=== PATIENT | female | born 1950 | race Caucasian/White ===

== ENCOUNTER 2016-10-09 18:38 | Emergency (ER) | payer MEDICARE, MEDICAID ==
--- NOTE | 2016-10-09 19:06 | EDM.PDOC ---
ED HPI GENERAL MEDICAL PROBLEM - General Chief Complaint: Upper Extremity Injury/Pain Stated Complaint: FALL Time Seen by Provider: 10/09/16 18:38 Source of Information: Reports: Patient, EMS, EMS Notes Reviewed History Limitations: Reports: No Limitations - History of Present Illness INITIAL COMMENTS - FREE TEXT/NARRATIVE: 66 years old w f with H/O IDDM, H/O DVT on Coumadin, obesity, Chronic pain, got dizzy and fell in the kitchen on her left outstretched and the back of her head. Pt denied LOC. Pt came to the ED with left forearm pain, splinted and a "bump" at her mid post kristopher. Pt denied other acute medical issues. Onset: Today Onset Date: 10/09/16 Onset Time: 18:00 Duration: Minutes: Location: Reports: Lower Extremity, Left Quality: Reports: Ache, Dull, Pressure, Stabbing Severity: Moderate Improves with: Reports: Immobilization Worsens with: Reports: Movement Context: Reports: Trauma (fall on outstreched left arm.) Associated Symptoms: Reports: Other (got dizzy and fell) - Related Data Allergies Allergy/AdvReac Type Severity Reaction Status Date / Time codeine Allergy Cannot Verified 10/09/16 19:56 Remember duloxetine HCl Allergy Cannot Verified 10/09/16 19:56 [From Cymbalta] Remember hydrocodone Allergy Cannot Verified 10/09/16 19:56 Remember Home Meds: Home Meds Albuterol/Ipratropium [DuoNeb 3.0-0.5 MG/3 ML] 3 ml IH QID PRN 10/19/14 [History ] Aspirin [Halfprin] 81 mg PO DAILY 10/19/14 [History] Budesonide [Pulmicort] 0.5 mg IH BID 10/19/14 [History] Bumetanide [Bumex] 1.5 mg PO DAILY 10/19/14 [History] FLUoxetine [PROzac] 40 mg PO BID 10/19/14 [History] Gabapentin [Neurontin] 300 mg PO TID 10/19/14 [History] Insulin Lispro [Humalog Kwikpen U-100] 30 unit SQ ACBRK 10/19/14 [History] Insulin Lispro [Humalog Kwikpen U-100] 30 unit SQ ACLUNCH 10/19/14 [History] Insulin Lispro [Humalog Kwikpen U-100] 38 unit SQ ACDINNER 10/19/14 [History] Ipratropium/Albuterol Sulfate [Iprat-Albut 0.5-3(2.5) mg/3 ml] 3 ml IH Q4HR PRN 10/19/14 [History] Levothyroxine Sodium [Synthroid] 2 tab PO ACBREAKFAST 10/19/14 [History] Lisinopril 10 mg PO DAILY 10/19/14 [History] Magic Mouth Wash 5 ml PO QID 10/19/14 [History] Polyethylene Glycol 3350 [MiraLAX] 17 gm PO DAILY PRN 10/19/14 [History] Potassium Chloride [Klor-Con 10] 20 meq PO BID 10/19/14 [History] Rolaids 2 tab PO ASDIRECTED PRN 10/19/14 [History] Warfarin [Coumadin] 5 mg PO ASDIRECTED 10/19/14 [History] Warfarin [Coumadin] 7.5 mg PO ASDIRECTED 10/19/14 [History] buPROPion HCl [Wellbutrin Xl] 150 mg PO DAILY 10/19/14 [History] Acetaminophen [Tylenol Extra Strength] 1,000 mg PO Q8HR PRN 10/09/16 [History] Ferrous Sulfate 325 mg PO TID 10/09/16 [History] Insulin Glargine,Hum.Rec.Anlog [Touluiso Solostar] 94 units SQ DAILY 10/09/16 [ History] Magnesium Oxide 400 mg PO BID 10/09/16 [History] Metolazone 2.5 mg PO WEEKLY 10/09/16 [History] Pantoprazole 40 mg PO ACBREAKFAST 10/09/16 [History] Sennosides/Docusate Sodium [Senna-Docusate Sodium Tablet] 2 tab PO DAILY PRN [History] Vitamin B6-pyridOXINE 100 mg PO PCLUNCH 10/09/16 [History] fentaNYL [Duragesic] 25 mcg TRDERM ASDIRECTED 10/09/16 [History] traZODone 50 mg PO DAILY 10/09/16 [History] Past Medical History Other Endocrine/Metabolic History: GRAVES DISEASE Social & Family History - Tobacco Use Smoking Status *Q: Former Smoker Years of Tobacco use: 42 Used Tobacco, but Quit: Yes - Alcohol Use Days Per Week of Alcohol Use: 0 - Recreational Drug Use Recreational Drug Use: No Drug Use in Last 12 Months: No Review of Systems - Review of Systems Review Of Systems: See Below Constitutional: Reports: Weakness Eyes: Reports: No Symptoms Ears: Reports: No Symptoms Nose: Reports: No Symptoms Mouth/Throat: Reports: No Symptoms Respiratory: Reports: No Symptoms Cardiovascular: Reports: No Symptoms GI/Abdominal: Reports: No Symptoms Genitourinary: Reports: No Symptoms Musculoskeletal: Reports: Arm Pain Skin: Reports: No Symptoms Neurological: Reports: Dizziness Psychiatric: Reports: No Symptoms ED EXAM, GENERAL - Physical Exam Exam: See Below Exam Limited By: Physical Impairment General Appearance: Alert, WD/WN, Mild Distress, Obese (morbid) Eye Exam: Bilateral Eye: Normal Inspection Ears: Normal External Exam Ear Exam: Bilateral Ear: Auricle Normal Nose: Normal Inspection, Normal Mucosa Throat/Mouth: Normal Inspection Head: Other (post kristopher swelling and tenderness) Neck: Normal Inspection, Tender Midline Respiratory/Chest: No Respiratory Distress, Lungs Clear Cardiovascular: Normal Peripheral Pulses Peripheral Pulses: 1+: Femoral (L), Femoral (R) GI/Abdominal: Normal Bowel Sounds, Soft, Non-Tender (Female) Exam: Deferred Rectal (Female) Exam: Deferred Back Exam: Normal Inspection, Full Range of Motion Extremities: Normal Inspection, Normal Range of Motion, Normal Capillary Refill Neurological: Alert, Oriented, CN II-XII Intact Psychiatric: Normal Affect, Normal Mood Skin Exam: Erythema (norman lower extremities) Lymphatic: No Adenopathy EKG INTERPRETATION EKG Date: 10/09/16 Time: 20:55 Rhythm: NSR Rate (beats/min): 64 [place]: normal P-wave: present QRS: normal ST-T: normal QT: normal Comparison: NA - no prior EKG Course - Vital Signs Text/Narrative:: 66 years old w f with H/O IDDM, H/O DVT on Coumadin, obesity, Chronic pain, got dizzy and fell in the kitchen on her left outstretched and the back of her head. Pt denied LOC. Pt came to the ED with left forearm pain, splinted and a "bump" at her mid post kristopher. Pt denied other acute medical issues. PE: Deformed left wrist/forearm, SQ hematoma mid post. kristopher. Cellulitis both lower extremities. Imaging: Left diostal radius fax, comminuted, closed CT Head NAD CT Cervical spine: NAD Labs: INR 2.4, Impression: Left diostal radius fax, comminuted, closed, SQ hematoma mid post kristopher. Fall Consultation: Dr. Murguia, Ortho: Splint, will see pt at 9.30 am, NPO after MN Plan; D/C with instructions Last Recorded V/S: Last Vital Signs Temp 36.8 C 10/09/16 18:50 Pulse 64 10/09/16 18:50 Resp 18 10/09/16 18:50 BP 129/70 10/09/16 18:50 Pulse Ox 100 10/09/16 18:50 - Orders/Labs/Meds Orders: Active Orders 24 hr Category Date Time Status EKG Documentation Completion [RC] ASDIRECTED Care 10/09/16 19:01 Active Cervical Spine wo Cont [CT] Stat Exams 10/09/16 20:31 Taken Head wo Cont [CT] Stat Exams 10/09/16 20:30 Taken CULTURE BLOOD [BC] Urgent Lab 10/09/16 19:30 Received CULTURE BLOOD [BC] Urgent Lab 10/09/16 19:30 Received Blood Culture x2 Reflex Set [OM.PC] Urgent Oth 10/09/16 18:56 Ordered EKG 12 Lead [EK] Routine Ther 10/09/16 18:59 Ordered Labs: Laboratory Tests 10/09/16 10/09/16 10/09/16 Range/Units 19:30 19:30 19:30 WBC 8.7 (4.5-12.0) X10-3/uL RBC 3.87 (3.23-5.20) x10(6)uL Hgb 11.6 (11.5-15.5) g/dL Hct 34.0 (30.0-51.3) % MCV 88.0 (80-96) fL MCH 29.9 (27.7-33.6) pg MCHC 34.0 (32.2-35.4) g/dL RDW 14.5 (11.5-15.5) % Plt Count 196 (125-369) X10(3)uL MPV 8.5 (7.4-10.4) fL Neut % (Auto) 72.7 (46-82) % Lymph % (Auto) 17.1 (13-37) % [place] % (Auto) 8.2 (4-12) % Eos % (Auto) 1 (1.0-5.0) % Baso % (Auto) 1 (0-2) % Neut # (Auto) 6.3 (1.6-8.3) # Lymph # (Auto) 1.5 (0.6-5.0) # [place] # (Auto) 0.7 (0.0-1.3) # Eos # (Auto) 0.1 (0.0-0.8) # Baso # (Auto) 0.1 (0.0-0.2) # PT 24.0 H (8.7-11.1) INR 2.34 H (0.89-1.13) Sodium 134 L (135-145) mmol/L Potassium 4.2 (3.5-5.3) mmol/L Chloride 100 (100-110) mmol/L Carbon Dioxide 25 (23-29) mmol/L BUN 48 H D (8-23) mg/dL Creatinine 1.4 H (0.6-1.3) mg/dL Est Cr Clr Drug Dosing TNP Estimated GFR (MDRD) 38 L (>60) BUN/Creatinine Ratio 34.3 H (9-20) Glucose 151 H D (80-116) mg/dL Hemoglobin A1c (4.0-6.0) % Lactic Acid (0.5-2.2) mmol/L Calcium 9.3 (8.6-10.2) mg/dL Creatine Kinase 58 L (60-160) IU/L Troponin I (0.02-0.06) NG/ML 10/09/16 10/09/16 10/09/16 Range/Units 19:30 19:30 19:30 WBC (4.5-12.0) X10-3/uL RBC (3.23-5.20) x10(6)uL Hgb (11.5-15.5) g/dL Hct (30.0-51.3) % MCV (80-96) fL MCH (27.7-33.6) pg MCHC (32.2-35.4) g/dL RDW (11.5-15.5) % Plt Count (125-369) X10(3)uL MPV (7.4-10.4) fL Neut % (Auto) (46-82) % Lymph % (Auto) (13-37) % [place] % (Auto) (4-12) % Eos % (Auto) (1.0-5.0) % Baso % (Auto) (0-2) % Neut # (Auto) (1.6-8.3) # Lymph # (Auto) (0.6-5.0) # [place] # (Auto) (0.0-1.3) # Eos # (Auto) (0.0-0.8) # Baso # (Auto) (0.0-0.2) # PT (8.7-11.1) INR (0.89-1.13) Sodium (135-145) mmol/L Potassium (3.5-5.3) mmol/L Chloride (100-110) mmol/L Carbon Dioxide (23-29) mmol/L BUN (8-23) mg/dL Creatinine (0.6-1.3) mg/dL Est Cr Clr Drug Dosing Estimated GFR (MDRD) (>60) BUN/Creatinine Ratio (9-20) Glucose (80-116) mg/dL Hemoglobin A1c 9.6 H (4.0-6.0) % Lactic Acid 1.8 (0.5-2.2) mmol/L Calcium (8.6-10.2) mg/dL Creatine Kinase (60-160) IU/L Troponin I < 0.01 L (0.02-0.06) NG/ML Departure - Departure Time of Disposition: 23:00 Disposition: Home, Self-Care 01 Condition: good Clinical Impression: Forearm fracture Qualifiers: Encounter type: initial encounter Fracture type: closed Laterality: left Qualified Code(s): S52.92XA - Unspecified fracture of left forearm, initial encounter for closed fracture Wrist fracture, left Qualifiers: Encounter type: initial encounter Fracture type: closed Qualified Code(s): S62.102A - Fracture of unspecified carpal bone, left wrist, initial encounter for closed fracture - Discharge Information Referrals: Lisa Rodriguez NP [Primary Care Provider] - Reno Murguia MD [Physician] - Forms: ED Department Discharge Additional Instructions: Rest, ICE and elevation. Nothing by mouty after midnight, please see Dr. Murguia at 9.30 am tomorrow morning. Pt come back to the ed earlier if your symtoms get acutely worse. Increase duragesic patch to 50-75mcg tonight to help with pain management. - My Orders Last 24 Hours: My Active Orders 10/09/16 18:56 Blood Culture x2 Reflex Set [OM.PC] Urgent 10/09/16 18:59 EKG 12 Lead [EK] Routine 10/09/16 19:01 EKG Documentation Completion [RC] ASDIRECTED 10/09/16 19:30 CULTURE BLOOD [BC] Urgent CULTURE BLOOD [BC] Urgent 10/09/16 20:30 Head wo Cont [CT] Stat 10/09/16 20:31 Cervical Spine wo Cont [CT] Stat - Assessment/Plan Last 24 Hours: My Active Orders 10/09/16 18:56 Blood Culture x2 Reflex Set [OM.PC] Urgent 10/09/16 18:59 EKG 12 Lead [EK] Routine 10/09/16 19:01 EKG Documentation Completion [RC] ASDIRECTED 10/09/16 19:30 CULTURE BLOOD [BC] Urgent CULTURE BLOOD [BC] Urgent 10/09/16 20:30 Head wo Cont [CT] Stat 10/09/16 20:31 Cervical Spine wo Cont [CT] Stat
[2016-10-09 20:19] VITALS: BP 129/70
--- NOTE | 2016-10-10 11:27 | CR ---
INDICATION: Fall. LEFT WRIST: Three views of the left wrist revealed a severely comminuted fracture of the distal radial metaphysis, which extends into the joint surface at least along the dorsal aspect of the radial joint surface. Posterior offset of the distal fracture fragment is noted of at least 1 cm with dorsal angulation of the radial joint surface that is moderately severe. An ulnar styloid fracture is also noted with medial offset of approximately 6 mm of the distal fracture fragment. There is also some relatively mild anterior angulation at the ulnar fracture site and distraction of the ulnar fracture fragments. IMPRESSION: Colles' fracture with fairly severe deformity and comminution. MTDD
--- NOTE | 2016-10-10 11:28 | CR ---
INDICATION: Fall. LEFT FOREARM: Frontal and lateral views of the left forearm revealed comminuted Colles' fracture of the radius and ulna with significant deformity. No other significant bone or joint abnormality was identified. MTDD
== END 2016-10-09 22:00 | disposition home or self-care (01) ==
LOC: FB.ED 18:38 → FB.SDS 10-10 09:28
DX: S52.532A Colles' fracture of left radius, initial encounter for closed fracture (principal); S52.612A Displaced fracture of left ulna styloid process, initial encounter for closed fracture; Z88.5 Allergy status to narcotic agent; Z88.8 Allergy status to other drugs, medicaments and biological substances; Z79.82 Long term (current) use of aspirin; Z79.899 Other long term (current) drug therapy; Z79.4 Long term (current) use of insulin; Z87.891 Personal history of nicotine dependence; Z79.01 Long term (current) use of anticoagulants; W19.XXXA Unspecified fall, initial encounter; Y92.090 Kitchen in other non-institutional residence as the place of occurrence of the external cause
CPT/HCPCS: 29105; 36415; 70450; 72125; 73090-LT; 73110-LT; 80048; 82550; 83036; 83605; 84484; 85025; 85610; 87040; 93005; 99283; 99285

== ENCOUNTER 2016-10-10 09:44 | Day surgery (SDC) | payer MEDICARE, MEDICAID ==
--- NOTE | 2016-10-10 10:08 | PCM.HP ---
H&P History of Present Illness - General Date of Service: 10/10/16 Source of Information: Patient History Limitations: Reports: No Limitations - History of Present Illness Initial Comments - Free Text/Narative: This is a 66-year-old female patient fell at home yesterday. Was evaluated in the ER and had a broken left wrist. Is here today for preop consultation for Dr. Reno Murguia for surgical reduction. Patient states that she has a history of CHF, COPD and is on oxygen. She denies being short of breath or chest pain today. She has no concerns. She cannot walk up 2 flights status because of her back. - Related Data Allergies/Adverse Reactions: Allergies Allergy/AdvReac Type Severity Reaction Status Date / Time codeine Allergy Cannot Verified 10/09/16 19:56 Remember duloxetine HCl Allergy Cannot Verified 10/09/16 19:56 [From Cymbalta] Remember hydrocodone Allergy Cannot Verified 10/09/16 19:56 Remember Home Medications: Home Meds Albuterol/Ipratropium [DuoNeb 3.0-0.5 MG/3 ML] 3 ml IH QID PRN 10/19/14 [History ] Aspirin [Halfprin] 81 mg PO DAILY 10/19/14 [History] Budesonide [Pulmicort] 0.5 mg IH BID 10/19/14 [History] Bumetanide [Bumex] 1.5 mg PO DAILY 10/19/14 [History] FLUoxetine [PROzac] 40 mg PO BID 10/19/14 [History] Gabapentin [Neurontin] 300 mg PO TID 10/19/14 [History] Insulin Lispro [Humalog Kwikpen U-100] 30 unit SQ ACBRK 10/19/14 [History] Insulin Lispro [Humalog Kwikpen U-100] 30 unit SQ ACLUNCH 10/19/14 [History] Insulin Lispro [Humalog Kwikpen U-100] 38 unit SQ ACDINNER 10/19/14 [History] Ipratropium/Albuterol Sulfate [Iprat-Albut 0.5-3(2.5) mg/3 ml] 3 ml IH Q4HR PRN 10/19/14 [History] Levothyroxine Sodium [Synthroid] 2 tab PO ACBREAKFAST 10/19/14 [History] Lisinopril 10 mg PO DAILY 10/19/14 [History] Magic Mouth Wash 5 ml PO QID 10/19/14 [History] Polyethylene Glycol 3350 [MiraLAX] 17 gm PO DAILY PRN 10/19/14 [History] Potassium Chloride [Klor-Con 10] 20 meq PO BID 10/19/14 [History] Rolaids 2 tab PO ASDIRECTED PRN 10/19/14 [History] Warfarin [Coumadin] 5 mg PO ASDIRECTED 10/19/14 [History] Warfarin [Coumadin] 7.5 mg PO ASDIRECTED 10/19/14 [History] buPROPion HCl [Wellbutrin Xl] 150 mg PO DAILY 10/19/14 [History] Acetaminophen [Tylenol Extra Strength] 1,000 mg PO Q8HR PRN 10/09/16 [History] Ferrous Sulfate 325 mg PO TID 10/09/16 [History] Insulin Glargine,Hum.Rec.Anlog [Toujeo Solostar] 94 units SQ DAILY 10/09/16 [ History] Magnesium Oxide 400 mg PO BID 10/09/16 [History] Metolazone 2.5 mg PO WEEKLY 10/09/16 [History] Pantoprazole 40 mg PO ACBREAKFAST 10/09/16 [History] Sennosides/Docusate Sodium [Senna-Docusate Sodium Tablet] 2 tab PO DAILY PRN [History] Vitamin B6-pyridOXINE 100 mg PO PCLUNCH 10/09/16 [History] fentaNYL [Duragesic] 25 mcg TRDERM ASDIRECTED 10/09/16 [History] traZODone 50 mg PO DAILY 10/09/16 [History] Past Medical History Cardiovascular History: Reports: Heart Failure, Hypertension Respiratory History: Reports: COPD, Other (See Below) (Sleep apnea, chronic oxygen therapy) Genitourinary History: Reports: None, Chronic Renal Insuffiency Musculoskeletal History: Reports: Back Pain, Chronic, Fracture, Fibromyalgia Psychiatric History: Reports: Depression Endocrine/Metabolic History: Reports: Diabetes, Type II, Hypothyroidism Other Endocrine/Metabolic History: GRAVES DISEASE - Past Surgical History HEENT Surgical History: Reports: Tonsillectomy, Other (See Below) (Thyroidectomy ) GI Surgical History: Reports: Appendectomy, Cholecystectomy Social & Family History - Family History Cardiac: Reports: Hypertension : Reports: Cystic Kidney Disease Endocrine/Metabolic: Reports: Diabetes, type II - Tobacco Use Smoking Status *Q: Former Smoker Years of Tobacco use: 42 Used Tobacco, but Quit: Yes Second Hand Smoke Exposure: No - Caffeine Use Caffeine Use: Reports: Coffee - Alcohol Use Days Per Week of Alcohol Use: 0 - Recreational Drug Use Recreational Drug Use: No Drug Use in Last 12 Months: No H&P Review of Systems - Review of Systems: Review Of Systems: See Below General: Reports: No Symptoms HEENT: Reports: No Symptoms Pulmonary: Reports: No Symptoms Cardiovascular: Reports: No Symptoms Gastrointestinal: Reports: No Symptoms Genitourinary: Reports: No Symptoms Skin: Reports: Other (Chronic low back pain/left wrist pain) Psychiatric: Reports: No Symptoms Neurological: Reports: No Symptoms Hematologic/Lymphatic: Reports: No Symptoms Immunologic: Reports: No Symptoms Exam - Exam Exam: See Below - Vital Signs Weight: 270 lb - Exam General: Alert, Oriented, Cooperative HEENT: PERRLA, Hearing Intact, Posterior Pharynx Clear, TMs Clear. No: Rhinitis Neck: Supple, Trachea Midline. No: Carotid Bruit Lungs: Clear to Auscultation, Normal Respiratory Effort. No: Crackles, Rales, Rhonchi Cardiovascular: Regular Rate, Regular Rhythm, Normal S1, Normal S2. No: Bradycardia, Tachycardia, Systolic Murmur, Diastolic Murmur Abdomen: Normal Bowel Sounds, Soft. No: Peritoneal Signs, Distention, Guarding Back Exam: Normal Inspection Extremities: Other (Left arm in sling). No: Edema Neuro Extensive - Mental Status: Alert, Oriented x3, Normal Mood/Affect, Normal Cognition, Memory Intact Psychiatric: Alert, Normal Affect, Normal Mood EKG INTERPRETATION EKG Interpretation Comments: Normal sinus rhythm without ST animality *Q Meaningful Use (ADM) - VTE *Q VTE Criteria *Q: - Stroke *Q Stroke Criteria *Q: - AMI *Q AMI Criteria *Q: - Problem List (1) Diabetes 1.5, managed as type 2 SNOMED Code(s): 757179205 ICD Code: E10.9 - TYPE 1 DIABETES MELLITUS WITHOUT COMPLICATIONS Status: Acute Current Visit: Yes (2) Chronic renal failure SNOMED Code(s): 38444138 ICD Code: N18.9 - CHRONIC KIDNEY DISEASE, UNSPECIFIED Status: Acute Current Visit: Yes (3) Anticoagulated SNOMED Code(s): 80635254, 181047739 ICD Code: Z79.01 - MCFP (CURRENT) USE OF ANTICOAGULANTS Status: Acute Current Visit: Yes (4) Hypertension SNOMED Code(s): 57924621 ICD Code: I10 - ESSENTIAL (PRIMARY) HYPERTENSION Status: Acute Current Visit: Yes (5) COPD (chronic obstructive pulmonary disease) SNOMED Code(s): 22142137 ICD Code: J44.9 - CHRONIC OBSTRUCTIVE PULMONARY DISEASE, UNSPECIFIED Status : Acute Current Visit: Yes (6) Forearm fracture SNOMED Code(s): 23456278 ICD Code: S52.90XA - UNSP FRACTURE OF UNSP FOREARM, INIT FOR CLOS FX Status : Acute Current Visit: No Qualifiers: Encounter type: initial encounter Fracture type: closed Laterality: left Qualified Code(s): S52.92XA - Unspecified fracture of left forearm, initial encounter for closed fracture Problem List Initiated/Reviewed/Updated: Yes Assessment/Plan Comment:: 1. Okay for surgery with conscious sedation. 2. Very risky for general. 3. INR is above 2. Would suggest close manipulation which is what Dr. Murguia wants to do. Would not suggest open reduction. This will be up to Dr. Murguia.
[2016-10-10] MEDS ORDERED: Acetaminophen 325 MG Tab PO PRN (10:44)
[2016-10-10] MEDS ORDERED: traMADol 50 MG Tab PO PRN (10:44)
[2016-10-10] MEDS ORDERED: Lactated Ringers 1,000 ML IV SCH ×2 (10:45→11:00)
[2016-10-10] MEDS ORDERED: Ketamine 500 mg/10 ML MDV IV ONE (11:30)
[2016-10-10] MEDS ORDERED: Ondansetron 4 MG/2 ML SDV IVPUSH ONE (11:30)
[2016-10-10] MEDS ORDERED: Morphine 10 MG/ML Syringe IVPUSH ONE (11:30)
[2016-10-10] MEDS ORDERED: Midazolam 1 MG/ML 2 ML SDV IV ONE (11:30)
[2016-10-10] MEDS ORDERED: ceFAZolin 1 GM Vial IV ONE (11:30)
[2016-10-10] MEDS ORDERED: Lidocaine 2% 100 MG/5 ML Syringe IVPUSH ONE (11:30)
[2016-10-10] MEDS ORDERED: Propofol 200 MG/20 ML SDV IV ONE (11:30)
[2016-10-10] MEDS ORDERED: fentaNYL 100 MCG/2 ML SDV IV ONE (11:30)
--- NOTE | 2016-10-10 13:25 | CONS ---
DATE OF CONSULTATION: 10/10/2016 HISTORY OF PRESENT ILLNESS: This 66-year-old white female, right-hand dominant, slipped and fell last night. She apparently lost her balance and fell backwards, and in trying to break her fall extended both arms and landed more on the left than the right. She did not hit her head nor lose consciousness. She denies any injuries other than her left wrist, but reports also that she does have some pain radiating proximally. On visiting with the patient, she denies any paresthesias. She has a number of medical problems including diabetes for 25 years. She does use insulin plus an oral hypoglycemic agent. The patient also has fibromyalgia. Because of her many medical problems and medical conditions, preoperative medical risk assessment was obtained from Dr. Larry Elias, who cleared her for surgery. PHYSICAL EXAMINATION: On examination today, she is resting comfortably in a long-arm splint. I can move her shoulder around without discomfort. She moves her fingers well. There is no ecchymosis at this time. Fingers are warm and bland. She has a good radial pulse. Sensation intact and equal in all dermatomal areas. DIAGNOSTIC STUDIES: I reviewed her films. She has a dorsally displaced and angulated distal radius fracture. The patient therefore is advised that surgical correction would probably be the most beneficial for her. I believe a close reduction because of the small distal fragment would only re-displace. Therefore, the patient will be taken back and under appropriate anesthesia, we have a close reduction and then percutaneous pinning. This will be done under C- arm control. The risks, complications, prognosis, expectations, and the postoperative course is explained to the patient. She agrees to proceed with surgery. /[id number] JOE/WILLIS
[2016-10-10] MEDS ORDERED: traMADol 50 MG Tab PO ONE (13:30)
[2016-10-10] MEDS ORDERED: ceFAZolin 1 GM in Sodium Chloride 0.9% 50 ML IV ONE (14:00)
--- NOTE | 2016-10-10 14:02 | OR ---
DATE OF OPERATION: 10/10/2016 SURGEON: Reno Murguia MD PREOPERATIVE DIAGNOSIS: Left distal radius fracture, displaced. POSTOPERATIVE DIAGNOSIS: Left distal radius fracture, displaced. PROCEDURE PERFORMED: 1. Closed reduction and external fixation with K-wires. 2. Application of long-arm cast. OPERATIVE NOTE: The patient was taken to the operating room, placed on the operating room table in supine position after 1 g of Ancef had been administered. The patient then had a close reduction carried out and the arm was positioned in finger traps with approximately 12 pounds of weights distally. The weights were applied with a padded area over the biceps. The patient then had the C-arm image intensification used to place three wires across the fracture site. Good reduction was achieved on both AP and lateral dimensions and therefore, cast was applied after cutting the pins and placing [place] balls upon them. COMPLICATIONS: None. ESTIMATED BLOOD LOSS: Less than 5 mL. PROCEDURE PERFORMED: 1. Closed reduction distal radius fracture, left wrist. 2. External fixation via K-wires left distal radius fracture. 3. Application of long-arm cast. /[id number] JOE/WILLIS MTDD
[2016-10-10 14:25] VITALS: BP 128/52
== END 2016-10-10 15:08 | disposition home or self-care (01) ==
LOC: FB.SDS 09:44
PROVIDERS: ATTEND Orthopaedic Surgery
DX: S52.502A Unspecified fracture of the lower end of left radius, initial encounter for closed fracture (principal); J44.9 Chronic obstructive pulmonary disease, unspecified; I13.0 Hypertensive heart and chronic kidney disease with heart failure and stage 1 through stage 4 chronic kidney disease, or unspecified chronic kidney disease; E11.22 Type 2 diabetes mellitus with diabetic chronic kidney disease; E03.9 Hypothyroidism, unspecified; F32.9 Major depressive disorder, single episode, unspecified; N18.9 Chronic kidney disease, unspecified; W01.0XXA Fall on same level from slipping, tripping and stumbling without subsequent striking against object, initial encounter; I50.30 Unspecified diastolic (congestive) heart failure; Z88.8 Allergy status to other drugs, medicaments and biological substances; Z79.82 Long term (current) use of aspirin; Z79.4 Long term (current) use of insulin; Z79.899 Other long term (current) drug therapy; Z79.01 Long term (current) use of anticoagulants; Z90.49 Acquired absence of other specified parts of digestive tract; Z98.890 Other specified postprocedural states; Z87.891 Personal history of nicotine dependence
CPT/HCPCS: 01820; 25605; 73110; 76000; 82962; A9270; J0690; J2250; J2270; J2405; J2704; J3010; J7050; J7120; C1713

== ENCOUNTER 2017-05-05 03:44 | Emergency (ER) | payer MEDICARE, MEDICAID ==
[2017-05-05 05:20] VITALS: BP 136/70
--- NOTE | 2017-05-05 05:33 | EDM.PDOC ---
ED HPI GENERAL MEDICAL PROBLEM - General Chief Complaint: General Stated Complaint: RIB PAIN Time Seen by Provider: 05/05/17 03:50 Source of Information: Reports: Patient, EMS History Limitations: Reports: No Limitations - History of Present Illness INITIAL COMMENTS - FREE TEXT/NARRATIVE: 67 y.o.w.f. with DM came to the ed 11 days after she fell at home. She is on Coumadin daily for DVT. She c/o pain at her lower back and right ribs, No LOC, no N/V/D. Pt takes ultram 50 mg of every 12 hours for pain. Pt stated her pain is better but still did not subside which made her to come to the ed by EMS. No other acute medical issues BP 136/60 pulse 70, Temp 36.4 Pulse ox 96% on RA Onset Date: 04/24/17 Onset Time: 08:00 Duration: Intermittent, Improving Location: Reports: Chest, Back Quality: Reports: Ache, Burning, Dull Severity: Mild Improves with: Reports: Cold Therapy, Rest Worsens with: Reports: Movement Associated Symptoms: Reports: No Other Symptoms Right Chest Pain Score (Numeric/FACES): 10 - Related Data Allergies Allergy/AdvReac Type Severity Reaction Status Date / Time codeine Allergy Cannot Verified 05/05/17 04:16 Remember duloxetine HCl Allergy Cannot Verified 05/05/17 04:16 [From Cymbalta] Remember hydrocodone Allergy Cannot Verified 05/05/17 04:16 Remember Home Meds: Home Meds Albuterol/Ipratropium [DuoNeb 3.0-0.5 MG/3 ML] 3 ml IH QID 10/19/14 [History] Aspirin [Halfprin] 81 mg PO DAILY 10/19/14 [History] Budesonide [Pulmicort] 0.5 mg IH BID 10/19/14 [History] Bumetanide [Bumex] 3 mg PO BID 10/19/14 [History] FLUoxetine [PROzac] 40 mg PO BID 10/19/14 [History] Gabapentin [Neurontin] 300 mg PO TID 10/19/14 [History] Insulin Lispro [Humalog Kwikpen U-100] 30 unit SQ ACBRK 10/19/14 [History] Insulin Lispro [Humalog Kwikpen U-100] 31 unit SQ ACDINNER 10/19/14 [History] Insulin Lispro [Humalog Kwikpen U-100] 31 unit SQ ACLUNCH 10/19/14 [History] Ipratropium/Albuterol Sulfate [Iprat-Albut 0.5-3(2.5) mg/3 ml] 3 ml IH Q4HR PRN 10/19/14 [History] Levothyroxine Sodium [Synthroid] 2 tab PO ACBREAKFAST 10/19/14 [History] Magic Mouth Wash 5 ml PO QID 10/19/14 [History] Polyethylene Glycol 3350 [MiraLAX] 17 gm PO DAILY PRN 10/19/14 [History] Potassium Chloride [Klor-Con 10] 20 meq PO BID 10/19/14 [History] Rolaids 2 tab PO ASDIRECTED PRN 10/19/14 [History] Warfarin [Coumadin] 5 mg PO DAILY 10/19/14 [History] buPROPion HCl [Wellbutrin Xl] 150 mg PO DAILY 10/19/14 [History] Acetaminophen [Tylenol Extra Strength] 1,000 mg PO Q8HR PRN 10/09/16 [History] Ferrous Sulfate 325 mg PO TID 10/09/16 [History] Insulin Glargine,Hum.Rec.Anlog [Toujeo Solostar] 96 units SQ DAILY 10/09/16 [ History] Magnesium Oxide 800 mg PO BID 10/09/16 [History] Metolazone 2.5 mg PO SUTUTH 10/09/16 [History] Pantoprazole 40 mg PO ACBREAKFAST 10/09/16 [History] Sennosides/Docusate Sodium [Senna-Docusate Sodium Tablet] 2 tab PO DAILY PRN [History] Vitamin B6-pyridOXINE 100 mg PO PCLUNCH 10/09/16 [History] fentaNYL [Duragesic] 25 mcg TRDERM ASDIRECTED 10/09/16 [History] traZODone 50 mg PO DAILY 10/09/16 [History] Cholecalciferol (Vitamin D3) [Vitamin D3] 1,000 unit PO WITHLUNCH 05/05/17 [ History] Magnesium Oxide 400 mg PO WITHLUNCH 05/05/17 [History] Pravastatin [Pravachol] 20 mg PO DAILY 05/05/17 [History] Spironolactone [Aldactone] 2 tab PO DAILY 05/05/17 [History] traMADol HCl [Tramadol HCl] 50 mg PO DAILY PRN 05/05/17 [History] Past Medical History HEENT History: Reports: Impaired Vision Cardiovascular History: Reports: Heart Failure, Hypertension Respiratory History: Reports: COPD, Other (See Below) Genitourinary History: Reports: None, Chronic Renal Insuffiency Musculoskeletal History: Reports: Back Pain, Chronic, Fracture, Fibromyalgia Psychiatric History: Reports: Depression Endocrine/Metabolic History: Reports: Diabetes, Type II, Hypothyroidism, Obesity /BMI 30+ Other Endocrine/Metabolic History: GRAVES DISEASE - Past Surgical History HEENT Surgical History: Reports: Tonsillectomy, Other (See Below) GI Surgical History: Reports: Appendectomy, Cholecystectomy Social & Family History - Family History Family Medical History: Noncontributory Cardiac: Reports: Hypertension : Reports: Cystic Kidney Disease Endocrine/Metabolic: Reports: Diabetes, type II - Tobacco Use Smoking Status *Q: Never Smoker Years of Tobacco use: 42 Used Tobacco, but Quit: Yes Second Hand Smoke Exposure: No - Caffeine Use Caffeine Use: Reports: None - Alcohol Use Days Per Week of Alcohol Use: 0 - Recreational Drug Use Recreational Drug Use: No Drug Use in Last 12 Months: No ED ROS GENERAL - Review of Systems Review Of Systems: See Below Constitutional: Reports: No Symptoms HEENT: Reports: Other (SQ hematoma, minor mid occiput) Respiratory: Reports: No Symptoms Cardiovascular: Reports: No Symptoms Endocrine: Reports: No Symptoms GI/Abdominal: Reports: No Symptoms : Reports: No Symptoms Musculoskeletal: Reports: Back Pain, Other (right rib pain) Skin: Reports: No Symptoms Neurological: Reports: No Symptoms Psychiatric: Reports: No Symptoms Hematologic/Lymphatic: Reports: No Symptoms Immunologic: Reports: No Symptoms ED EXAM, GENERAL - Physical Exam Exam: See Below Exam Limited By: Physical Impairment General Appearance: Alert, WD/WN, Obese (morbid) Eye Exam: Bilateral Eye: Normal Inspection Ears: Normal External Exam Ear Exam: Bilateral Ear: Auricle Normal Nose: Normal Inspection Throat/Mouth: Normal Inspection Head: Other (minor mid occipital tenderness) Neck: Normal Inspection Respiratory/Chest: No Respiratory Distress, Lungs Clear, Normal Breath Sounds Cardiovascular: Normal Peripheral Pulses, Regular Rate, Rhythm Peripheral Pulses: 1+: Radial (R) GI/Abdominal: Normal Bowel Sounds, Soft (Female) Exam: Deferred Rectal (Female) Exam: Deferred Back Exam: Normal Inspection, Full Range of Motion, Vertebral Tenderness (mid lower back) Extremities: Normal Inspection Neurological: Alert, Oriented, CN II-XII Intact, Normal Cognition Psychiatric: Normal Affect, Normal Mood Skin Exam: Warm, Dry, Intact Lymphatic: No Adenopathy Course - Vital Signs Text/Narrative:: 67 y.o.w.f. with DM came to the ed 11 days after she fell at home. She is on Coumadin daily for DVT. She c/o pain at her lower back and right ribs, No LOC, no N/V/D. Pt takes ultram 50 mg of every 12 hours for pain. Pt stated her pain is better but still did not subside which made her to come to the ed by EMS. No other acute medical issues BP 136/60 pulse 70, Temp 36.4 Pulse ox 96% on RA, no stool or urine incontinence. PE: Morbid obese with r lat chest wall pain and low back pain Imaging: nondisplacer right 7th rib frx, Lumbar ailyn: NAD, official report is pending Labs: Accu check 254 Impression: S/P fall 11 days ago with minor SQ hematoma of occiput, right 7th rib frx, morbid obesity Tx: ICE, Pt is on Ultram and a Fentanyl patch Reexam: Improved, pt is able to ambulate well with a walker Plan: D/C with instructions Last Recorded V/S: Last Vital Signs Temp 36.9 C 05/05/17 03:50 Pulse 72 05/05/17 05:18 Resp 16 05/05/17 05:18 BP 136/70 05/05/17 05:18 Pulse Ox 98 05/05/17 05:18 - Orders/Labs/Meds Orders: Active Orders 24 hr Category Date Time Status Lumbar Spine 2 or 3V [CR] Stat Exams 05/05/17 05:35 Taken Ribs 2V w Chest Rt [CR] Stat Exams 05/05/17 04:12 Taken Labs: Laboratory Tests 05/05/17 Range/Units 05:41 POC Glucose 253 H (80-116) mg/dL Departure - Departure Time of Disposition: 05:42 Disposition: Home, Self-Care 01 Condition: Good Clinical Impression: Rib fracture Qualifiers: Encounter type: initial encounter Rib fracture type: single rib Fracture type: closed Laterality: right Qualified Code(s): S22.31XA - Fracture of one rib, right side, initial encounter for closed fracture Back ache Qualifiers: Back pain location: low back pain Chronicity: unspecified Back pain laterality : midline Sciatica presence: without sciatica Qualified Code(s): M54.5 - Low back pain - Discharge Information Referrals: PCP,Unknown [Primary Care Provider] - Forms: ED Department Discharge Additional Instructions: Please cont your current pain meds, please increase ultram from 50 mg to 100 mg every 12 hours, please apply ice to the affected area, F/U, come back if your symptoms get worse acutely. - My Orders Last 24 Hours: My Active Orders 05/05/17 04:12 Ribs 2V w Chest Rt [CR] Stat 05/05/17 05:35 Lumbar Spine 2 or 3V [CR] Stat - Assessment/Plan Last 24 Hours: My Active Orders 05/05/17 04:12 Ribs 2V w Chest Rt [CR] Stat 05/05/17 05:35 Lumbar Spine 2 or 3V [CR] Stat
--- NOTE | 2017-05-06 13:42 | CR ---
INDICATION: Fall 04/24/2017, with low back pain. LUMBOSACRAL SPINE: Frontal and lateral views of the lumbosacral spine, with two lateral views, revealed the pedicles to appear intact. Sacroiliac joints appear to be intact. A mild degree of demineralization may be present, raising question of osteomalacia or osteoporosis of mild degree - correlate clinically. Vertebral body and disk heights were maintained. A definite fracture or dislocation is not identified. At L1-2, there does appear to be some mild degenerative change, as there is at T12-L1 with hypertrophic lipping anteriorly off vertebral bodies. Calcifications are noted in the abdominal aorta and iliac arteries. IMPRESSION: 1. No definite acute fracture or dislocation. 2. There are some degenerative changes in the thoracolumbar spine. 3. Question the possibility of mild demineralization - correlate clinically. 4. ASD. MTDD
== END 2017-05-05 05:54 | disposition home or self-care (01) ==
LOC: FB.ED 03:44
DX: S22.31XA Fracture of one rib, right side, initial encounter for closed fracture (principal); M54.5 Low back pain; J44.9 Chronic obstructive pulmonary disease, unspecified; I13.0 Hypertensive heart and chronic kidney disease with heart failure and stage 1 through stage 4 chronic kidney disease, or unspecified chronic kidney disease; I50.9 Heart failure, unspecified; N18.9 Chronic kidney disease, unspecified; E11.22 Type 2 diabetes mellitus with diabetic chronic kidney disease; E03.9 Hypothyroidism, unspecified; E66.01 Morbid (severe) obesity due to excess calories; Z88.5 Allergy status to narcotic agent; Z79.899 Other long term (current) drug therapy; Z79.84 Long term (current) use of oral hypoglycemic drugs; W19.XXXA Unspecified fall, initial encounter; Y92.009 Unspecified place in unspecified non-institutional (private) residence as the place of occurrence of the external cause
CPT/HCPCS: 71101-RT; 72100; 82962; 99283

== ENCOUNTER 2017-05-26 13:54 | Emergency (ER) | payer MEDICARE, MEDICAID ==
--- NOTE | 2017-05-26 15:02 | EDM.PDOC ---
ED HPI GENERAL MEDICAL PROBLEM - General Chief Complaint: General Stated Complaint: DIZZY Time Seen by Provider: 05/26/17 14:45 Source of Information: Reports: Patient, Old Records, RN History Limitations: Reports: No Limitations - History of Present Illness INITIAL COMMENTS - FREE TEXT/NARRATIVE: 67 yo female here with fatigue and increased sleepiness since this past Friday. Getting worse. Says she had a fever this morning, 103F per patient, 100.3F per staff. Staff at her assisted living facility state they gave her acetaminophen, she denies this. She says she can't take acetaminophen because she is diabetic. Has no pain. Had her thyroid gland irradiated for Grave's Dz, and has not had her TSH level checked for a long time. Onset: Gradual Onset Date: 05/23/17 Duration: Day(s):, Getting Worse Location: Reports: Generalized Severity: Moderate Improves with: Reports: None Worsens with: Reports: Other (? time) Context: Reports: Other (Has multiple chronic illnesses, lives at an assisted living facility.) Associated Symptoms: Reports: Fever/Chills (reported by staff at her assisted living facility), Malaise (and fatigue/sleepiness) Treatments CARE CLINICIAN: Reports: Other (see below) (? none) - Related Data Allergies Allergy/AdvReac Type Severity Reaction Status Date / Time budesonide [From Symbicort] Allergy Hives Verified 05/26/17 13:58 codeine Allergy Cannot Verified 05/05/17 04:16 Remember duloxetine HCl Allergy Cannot Verified 05/05/17 04:16 [From Cymbalta] Remember formoterol [From Symbicort] Allergy Hives Verified 05/26/17 13:58 hydrocodone Allergy Cannot Verified 05/05/17 04:16 Remember Home Meds: Home Meds Albuterol/Ipratropium [DuoNeb 3.0-0.5 MG/3 ML] 3 ml IH QID 10/19/14 [History] Aspirin [Halfprin] 81 mg PO DAILY 10/19/14 [History] Budesonide [Pulmicort] 0.5 mg IH BID 10/19/14 [History] Bumetanide [Bumex] 3 mg PO BID 10/19/14 [History] FLUoxetine [PROzac] 40 mg PO BID 10/19/14 [History] Insulin Lispro [Humalog Kwikpen U-100] 31 unit SQ TIDMEALS 10/19/14 [History] Levothyroxine Sodium [Synthroid] 2 tab PO ACBREAKFAST 10/19/14 [History] Magic Mouth Wash 5 ml PO QID PRN 10/19/14 [History] Polyethylene Glycol 3350 [MiraLAX] 17 gm PO DAILY PRN 10/19/14 [History] Potassium Chloride [Klor-Con 10] 20 meq PO BID 10/19/14 [History] Warfarin [Coumadin] 5 mg PO DAILY 10/19/14 [History] Acetaminophen [Tylenol Extra Strength] 1,000 mg PO Q8HR PRN 10/09/16 [History] Ferrous Sulfate 325 mg PO TID 10/09/16 [History] Insulin Glargine,Hum.Rec.Anlog [Toujeo Solostar] 96 units SQ DAILY 10/09/16 [ History] Magnesium Oxide 800 mg PO BID 10/09/16 [History] Metolazone 2.5 mg PO THSA 10/09/16 [History] Vitamin B6-pyridOXINE 100 mg PO PCLUNCH 10/09/16 [History] fentaNYL [Duragesic] 25 mcg TRDERM Q72H 10/09/16 [History] traZODone 50 mg PO BEDTIME 10/09/16 [History] Cholecalciferol (Vitamin D3) [Vitamin D3] 1,000 unit PO WITHLUNCH 05/05/17 [ History] Magnesium Oxide 400 mg PO WITHLUNCH 05/05/17 [History] Pravastatin [Pravachol] 20 mg PO BEDTIME 05/05/17 [History] Spironolactone [Aldactone] 1 tab PO BID 05/05/17 [History] traMADol HCl [Tramadol HCl] 50 - 100 mg PO Q12H PRN 05/05/17 [History] Albuterol Sulfate 2.5 mg IH Q4H PRN 05/26/17 [History] Calcium Carb/Magnesium Hydrox [Rolaids Chewable Tablet] 2 tab PO Q1H PRN [History] Gabapentin [Neurontin] 300 mg PO TID 05/26/17 [History] Hydrocortisone-Aloe 2% Gel 1 applic TOP ASDIRECTED PRN 05/26/17 [History] Insulin Lispro [Humalog] 0 units SQ TIDMEALS 05/26/17 [History] Mupirocin Calcium [Bactroban] 15 gm TP BID PRN 05/26/17 [History] Pantoprazole [ProTONIX] 40 mg PO ACBREAKFAST 05/26/17 [History] Sennosides [Senna] 2 tab PO BEDTIME PRN 05/26/17 [History] buPROPion HCl [Wellbutrin Xl] 150 mg PO DAILY 05/26/17 [History] guaiFENesin [Guaifenesin] 400 mg PO Q6H PRN 05/26/17 [History] Past Medical History HEENT History: Reports: Impaired Vision Cardiovascular History: Reports: Heart Failure, Hypertension Respiratory History: Reports: COPD, Other (See Below) Genitourinary History: Reports: None, Chronic Renal Insuffiency Musculoskeletal History: Reports: Back Pain, Chronic, Fracture, Fibromyalgia Psychiatric History: Reports: Depression Endocrine/Metabolic History: Reports: Diabetes, Type II, Hypothyroidism, Obesity /BMI 30+ Other Endocrine/Metabolic History: GRAVES DISEASE - Past Surgical History HEENT Surgical History: Reports: Tonsillectomy, Other (See Below) GI Surgical History: Reports: Appendectomy, Cholecystectomy Social & Family History - Family History Family Medical History: Noncontributory Cardiac: Reports: Hypertension : Reports: Cystic Kidney Disease Endocrine/Metabolic: Reports: Diabetes, type II - Tobacco Use Smoking Status *Q: Never Smoker Years of Tobacco use: 42 Used Tobacco, but Quit: Yes Second Hand Smoke Exposure: No - Caffeine Use Caffeine Use: Reports: None - Alcohol Use Days Per Week of Alcohol Use: 0 - Recreational Drug Use Recreational Drug Use: No Drug Use in Last 12 Months: No ED ROS GENERAL - Review of Systems Review Of Systems: See Below Constitutional: Reports: Fever (? reportedly) HEENT: Reports: No Symptoms Respiratory: Reports: No Symptoms Cardiovascular: Reports: No Symptoms Endocrine: Reports: Fatigue GI/Abdominal: Reports: No Symptoms : Reports: No Symptoms Musculoskeletal: Reports: No Symptoms Skin: Reports: No Symptoms Neurological: Reports: No Symptoms Psychiatric: Reports: No Symptoms ED EXAM, GENERAL - Physical Exam Exam: See Below Exam Limited By: No Limitations General Appearance: Alert, No Apparent Distress, Obese Eye Exam: Bilateral Eye: Normal Inspection Ears: Normal External Exam, Normal Canal, Hearing Grossly Normal, Normal TMs Ear Exam: Bilateral Ear: Auricle Normal, Canal Normal, TM normal Nose: Normal Inspection, Normal Mucosa, No Blood Throat/Mouth: Normal Inspection, Normal Lips, Normal Oropharynx, Normal Voice, No Airway Compromise Head: Atraumatic, Normocephalic Neck: Normal Inspection, Supple Respiratory/Chest: No Respiratory Distress, Lungs Clear, Normal Breath Sounds, No Accessory Muscle Use Cardiovascular: Regular Rate, Rhythm, No Edema GI/Abdominal: Normal Bowel Sounds, Soft, Non-Tender, No Distention Back Exam: Normal Inspection. No: CVA Tenderness (R), Paraspinal Tenderness Extremities: Pedal Edema, Other (Scaly, indurated skin of both LE's) Neurological: Alert, Oriented, CN II-XII Intact, Normal Cognition, No Motor/ Sensory Deficits Psychiatric: Normal Affect, Normal Mood Skin Exam: Warm, Dry, Intact, Normal Color, No Rash Lymphatic: No Adenopathy Course - Vital Signs Last Recorded V/S: Last Vital Signs Temp 36.7 C 05/26/17 15:41 Pulse 67 05/26/17 13:55 Resp 18 05/26/17 15:41 BP 113/37 L 05/26/17 15:41 Pulse Ox 100 05/26/17 15:41 - Orders/Labs/Meds Labs: Laboratory Tests 05/26/17 05/26/17 05/26/17 Range/Units 15:10 15:10 15:10 WBC 9.4 (4.5-12.0) X10-3/uL RBC 3.45 (3.23-5.20) x10(6)uL Hgb 10.1 L (11.5-15.5) g/dL Hct 31.1 (30.0-51.3) % MCV 90.3 (80-96) fL MCH 29.4 (27.7-33.6) pg MCHC 32.5 (32.2-35.4) g/dL RDW 16.2 H (11.5-15.5) % Plt Count 193 (125-369) X10(3)uL PT 39.7 H* (8.7-11.1) INR 3.82 H (0.89-1.13) Sodium 137 (135-145) mmol/L Potassium 3.6 (3.5-5.3) mmol/L Chloride 98 L (100-110) mmol/L Carbon Dioxide 32 (21-32) mmol/L BUN 40 H (7-18) mg/dL Creatinine 1.7 H (0.55-1.02) mg/dL Est Cr Clr Drug Dosing 29.69 mL/min Estimated GFR (MDRD) 30 L (>60) BUN/Creatinine Ratio 23.5 H (9-20) Glucose 129 H D (80-116) mg/dL Calcium 9.8 (8.6-10.2) mg/dL Troponin I (<0.017-0.056) ng/mL TSH, Ultra Sensitive (0.36-3.74) IU/mL Urine Color (YELLOW) Urine Appearance (CLEAR) Urine pH (5.0-6.5) Ur Specific [place] (1.010-1.025) Urine Protein (NEGATIVE) mg/dL Urine Glucose (UA) (NEGATIVE) mg/dL Urine Ketones (NEGATIVE) mg/dL Urine Occult Blood (NEGATIVE) Urine Nitrite (NEGATIVE) Urine Bilirubin (NEGATIVE) Urine Urobilinogen (NEGATIVE) mg/dL Ur Leukocyte Esterase (NEGATIVE) Urine RBC (0) Urine WBC (0) Ur Squamous Epith Cells (NS,R,O) Urine Bacteria (NS) 05/26/17 05/26/17 05/26/17 Range/Units 15:10 15:14 17:34 WBC (4.5-12.0) X10-3/uL RBC (3.23-5.20) x10(6)uL Hgb (11.5-15.5) g/dL Hct (30.0-51.3) % MCV (80-96) fL MCH (27.7-33.6) pg MCHC (32.2-35.4) g/dL RDW (11.5-15.5) % Plt Count (125-369) X10(3)uL PT (8.7-11.1) INR (0.89-1.13) Sodium (135-145) mmol/L Potassium (3.5-5.3) mmol/L Chloride (100-110) mmol/L Carbon Dioxide (21-32) mmol/L BUN (7-18) mg/dL Creatinine (0.55-1.02) mg/dL Est Cr Clr Drug Dosing mL/min Estimated GFR (MDRD) (>60) BUN/Creatinine Ratio (9-20) Glucose (80-116) mg/dL Calcium (8.6-10.2) mg/dL Troponin I < 0.017 L (<0.017-0.056) ng/mL TSH, Ultra Sensitive 6.63 H (0.36-3.74) IU/mL Urine Color Yellow (YELLOW) Urine Appearance Slightly cloudy (CLEAR) Urine pH 6.0 (5.0-6.5) Ur Specific [place] 1.010 (1.010-1.025) Urine Protein Negative (NEGATIVE) mg/dL Urine Glucose (UA) Normal (NEGATIVE) mg/dL Urine Ketones Negative (NEGATIVE) mg/dL Urine Occult Blood Large H (NEGATIVE) Urine Nitrite Negative (NEGATIVE) Urine Bilirubin Negative (NEGATIVE) Urine Urobilinogen Normal (NEGATIVE) mg/dL Ur Leukocyte Esterase Negative (NEGATIVE) Urine RBC 10-20 H (0) Urine WBC 0-5 (0) Ur Squamous Epith Cells Moderate H (NS,R,O) Urine Bacteria Few H (NS) Meds: Medications Discontinued Medications Generic Name Dose Route Start Last Admin Trade Name Freq PRN Reason Stop Dose Admin Lactated Ringer's 1,000 mls @ 1,000 mls/hr 05/26/17 16:43 Ringers, Lactated IV 05/26/17 17:42 BOLUS ONE Departure - Departure Time of Disposition: 18:20 Disposition: Home, Self-Care 01 Condition: Fair Clinical Impression: Drowsiness, Chronic anemia, Supratherapeutic INR, Chronic renal failure, Morbid obesity Hypothyroidism Qualifiers: Hypothyroidism type: acquired Qualified Code(s): E03.9 - Hypothyroidism, unspecified Sleep apnea Qualifiers: Sleep apnea type: obstructive Qualified Code(s): G47.33 - Obstructive sleep apnea (adult) (pediatric) - Discharge Information Referrals: Lisa Rodriguez NP [Primary Care Provider] - Forms: ED Department Discharge
[2017-05-26] MEDS ORDERED: Lactated Ringers 1,000 ML IV ONE (16:43)
[2017-05-26 19:34] VITALS: BP 144/36
== END 2017-05-26 19:40 | disposition home or self-care (01) ==
LOC: FB.ED 13:54
DX: G47.33 Obstructive sleep apnea (adult) (pediatric) (principal); I13.0 Hypertensive heart and chronic kidney disease with heart failure and stage 1 through stage 4 chronic kidney disease, or unspecified chronic kidney disease; E11.22 Type 2 diabetes mellitus with diabetic chronic kidney disease; N18.9 Chronic kidney disease, unspecified; I50.9 Heart failure, unspecified; E66.9 Obesity, unspecified; E66.01 Morbid (severe) obesity due to excess calories; E03.9 Hypothyroidism, unspecified; D64.9 Anemia, unspecified; Z88.5 Allergy status to narcotic agent; Z88.8 Allergy status to other drugs, medicaments and biological substances; Z79.82 Long term (current) use of aspirin; Z79.899 Other long term (current) drug therapy
CPT/HCPCS: 36415; 80048; 81001; 84443; 84484; 85027; 85610; 99283

== ENCOUNTER 2017-11-18 01:40 | Inpatient (IN) | payer MEDICARE, MEDICAID ==
[2017-11-18] MEDS ORDERED: Glucose Gel 15 GM in 37.5 GM Tube PO ONE (01:50)
[2017-11-18] MEDS ORDERED: 50% Dextrose in Water 50 ML Syringe IVPUSH ONE (01:50)
--- NOTE | 2017-11-18 01:53 | EDM.PDOC ---
ED HPI GENERAL MEDICAL PROBLEM - General Stated Complaint: GENERAL Time Seen by Provider: 11/18/17 01:40 Source of Information: Reports: Patient, EMS History Limitations: Reports: Altered Mental Status - History of Present Illness INITIAL COMMENTS - FREE TEXT/NARRATIVE: 67 y.o.w.f with multiple medical issues including metabolic syndrome, went to bed, woke up to go to the bathroom and felt weak. She pushed the life line button. She fell aslepp and woke up after she was in the ED and received D50. All the time in between she does not remember. On arrival, her BS was <20. Temp 94.7 Pulse ox 99% on 4 liters O2 BP 160/71 Pulse 55 RR14. BS after D 50 was 275. Pt was OX3 after D50 was given. Onset Date: 11/18/17 Onset Time: 00:05 Duration: Hour(s):, Getting Worse Location: Reports: Generalized Quality: Reports: Other (notresponding) Improves with: Reports: Medication Worsens with: Reports: Other (Hypoglycemia) Context: Reports: Other (Hypoglycemia) Associated Symptoms: Reports: Confusion, Weakness - Related Data Allergies Allergy/AdvReac Type Severity Reaction Status Date / Time budesonide [From Symbicort] Allergy Hives Verified 11/18/17 02:49 codeine Allergy Cannot Verified 11/18/17 02:49 Remember duloxetine HCl Allergy Cannot Verified 11/18/17 02:49 [From Cymbalta] Remember formoterol [From Symbicort] Allergy Hives Verified 11/18/17 02:49 hydrocodone Allergy Cannot Verified 11/18/17 02:49 Remember Home Meds: Home Meds Albuterol/Ipratropium [DuoNeb 3.0-0.5 MG/3 ML] 3 ml IH QID 10/19/14 [History] Aspirin [Halfprin] 81 mg PO DAILY 10/19/14 [History] Budesonide [Pulmicort] 0.5 mg IH BID 10/19/14 [History] Bumetanide [Bumex] 3 mg PO BID 10/19/14 [History] FLUoxetine [PROzac] 40 mg PO BID 10/19/14 [History] Levothyroxine Sodium [Synthroid] 2 tab PO ACBREAKFAST 10/19/14 [History] Magic Mouth Wash 5 ml PO QID PRN 10/19/14 [History] Polyethylene Glycol 3350 [MiraLAX] 17 gm PO DAILY PRN 10/19/14 [History] Potassium Chloride [Klor-Con 10] 20 meq PO BID 10/19/14 [History] Warfarin [Coumadin] 5 mg PO DAILY 10/19/14 [History] Acetaminophen [Tylenol Extra Strength] 1,000 mg PO Q8HR PRN 10/09/16 [History] Ferrous Sulfate 325 mg PO TID 10/09/16 [History] Insulin Glargine,Hum.Rec.Anlog [Toujeo Solostar] 96 units SQ DAILY 10/09/16 [ History] Magnesium Oxide 800 mg PO BID 10/09/16 [History] Metolazone 2.5 mg PO THSA 10/09/16 [History] Vitamin B6-pyridOXINE 100 mg PO PCLUNCH 10/09/16 [History] fentaNYL [Duragesic] 25 mcg TRDERM Q72H 10/09/16 [History] traZODone 50 mg PO BEDTIME 10/09/16 [History] Cholecalciferol (Vitamin D3) [Vitamin D3] 1,000 unit PO WITHLUNCH 05/05/17 [ History] Magnesium Oxide 400 mg PO WITHLUNCH 05/05/17 [History] Pravastatin [Pravachol] 20 mg PO BEDTIME 05/05/17 [History] Spironolactone [Aldactone] 1 tab PO BID 05/05/17 [History] traMADol HCl [Tramadol HCl] 50 - 100 mg PO Q12H PRN 05/05/17 [History] Albuterol Sulfate 2.5 mg IH Q4H PRN 05/26/17 [History] Calcium Carb/Magnesium Hydrox [Rolaids Chewable Tablet] 2 tab PO Q1H PRN [History] Gabapentin [Neurontin] 300 mg PO TID 05/26/17 [History] Hydrocortisone-Aloe 2% Gel 1 applic TOP ASDIRECTED PRN 05/26/17 [History] Insulin Lispro [Humalog] 0 units SQ TIDMEALS 05/26/17 [History] Mupirocin Calcium [Bactroban] 15 gm TP BID PRN 05/26/17 [History] Pantoprazole [ProTONIX] 40 mg PO ACBREAKFAST 05/26/17 [History] Sennosides [Senna] 2 tab PO BEDTIME PRN 05/26/17 [History] buPROPion HCl [Wellbutrin Xl] 150 mg PO DAILY 05/26/17 [History] guaiFENesin [Guaifenesin] 400 mg PO Q6H PRN 05/26/17 [History] Past Medical History HEENT History: Reports: Impaired Vision Cardiovascular History: Reports: Heart Failure, Hypertension Respiratory History: Reports: COPD, Other (See Below) Other Respiratory History: Is on 2L/NC @ home all time. Has CPAP. 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: Musculoskeletal History: Reports: Back Pain, Chronic, Fracture, Fibromyalgia Other Musculoskeletal History: hx L wrist fx Psychiatric History: Reports: Depression Endocrine/Metabolic History: Reports: Diabetes, Type II, Hypothyroidism, Obesity /BMI 30+ Other Endocrine/Metabolic History: GRAVES DISEASE Hematologic History: Reports: Anemia Dermatologic History: Reports: Other (See Below) Other Dermatologic History: occ rash - Infectious Disease History Infectious Disease History: Reports: Chicken Pox, Measles, Mumps - Past Surgical History HEENT Surgical History: Reports: Tonsillectomy, Other (See Below) GI Surgical History: Reports: Appendectomy, Cholecystectomy Social & Family History - Family History Family Medical History: Noncontributory Cardiac: Reports: Hypertension : Reports: Cystic Kidney Disease Endocrine/Metabolic: Reports: Diabetes, type II - Caffeine Use Caffeine Use: Reports: None ED ROS GENERAL - Review of Systems Review Of Systems: Unable To Obtain (accu check <20) ED EXAM, NEURO - Physical Exam Exam: See Below Exam Limited By: Altered Mental Status (hypoglycemia) General Appearance: WD/WN, Lethargic Eye Exam: Bilateral Eye: Normal Inspection Ears: Normal External Exam Nose: Normal Inspection, Normal Mucosa Throat/Mouth: Normal Lips, Normal Voice, No Airway Compromise Head Exam: Atraumatic, Normocephalic Neck: Normal Inspection, Supple, Non-Tender, Full Range of Motion Respiratory/Chest: No Respiratory Distress, Lungs Clear, Normal Breath Sounds ( poor insp effort) Cardiovascular: Normal Peripheral Pulses, Regular Rate, Rhythm, No Edema, No Gallop, Bradycardia GI/Abdominal: Normal Bowel Sounds, Soft, Non-Tender, No Organomegaly (Female) Exam: Deferred Rectal (Female) Exam: Deferred Neurological: Other (lethargic) Back Exam: Normal Inspection, Full Range of Motion Extremities: Normal Inspection, Normal Range of Motion, Non-Tender, No Pedal Edema Psychiatric: Flat Affect Skin Exam: Cool EKG INTERPRETATION EKG Date: 11/18/17 Time: 02:55 Rhythm: NSR Rate (Beats/Min): 55 [place]: Normal P-Wave: Present QRS: Normal ST-T: Normal QT: Prolonged (566) Comparison: NA - No Prior EKG Course - Vital Signs Text/Narrative:: 67 y.o.w.f with multiple medical issues including metabolic syndrome, went to bed, woke up to go to the bathroom and felt weak. She pushed the life line button. She fell aslepp and woke up after she was in the ED and received D50. All the time in between she does not remember. On arrival, her BS was <20. Temp 94.7 Pulse ox 99% on 4 liters O2 BP 160/71 Pulse 55 RR14. BS after D 50 was 275. Pt was OX3 after D50 was given. PE: Morbid obese w F OX3 after D 50 was given, still lethargic, however. Labs: After D 50: CBC was nl Na 139 K was 3.0 Cr 1.5 BUN 29 CO2 33 Glc 165 Troponin 0.017 venous pH 7.42 Impression: Hypoglycemia, Hypothermia, hypokalemia Tx: D 50, Warm LA, D5 NS, potassium, bear hugger Reexam: Pt improved, still lethargic Last Recorded V/S: Last Vital Signs Temp 34.6 C L 11/18/17 04:20 Pulse 58 L 11/18/17 04:20 Resp 20 11/18/17 04:20 BP 140/62 11/18/17 04:20 Pulse Ox 100 11/18/17 04:20 - Orders/Labs/Meds Orders: Active Orders 24 hr Category Date Time Status EKG Documentation Completion [RC] ASDIRECTED Care 11/18/17 02:47 Active DRUG SCREEN, URINE ALERE [URCHEM] Stat Lab 11/18/17 04:13 Ordered UA W/MICROSCOPIC [URIN] Stat Lab 11/18/17 03:27 Ordered Dextrose 5%-0.45% NaCl [Dextrose 5%-1/2 NS] 1,000 ml Med 11/18/17 02:05 Active IV ASDIRECTED EKG 12 Lead [EK] Routine Ther 11/18/17 02:47 Ordered Medication Orders Acetaminophen (Tylenol Extra Strength) 1,000 mg PO Q8HR PRN PRN Reason: Headache Albuterol (Proventil Neb Soln) 2.5 mg INH Q4H PRN PRN Reason: BREATHING Aspirin (Halfprin) 81 mg PO DAILY INDERJIT Budesonide (Pulmicort) 0.5 mg INH BID INDERJIT Bupropion HCl (Wellbutrin Xl) 150 mg PO DAILY [facility] Fentanyl (Duragesic) 25 mcg TRDERM Q72H INDERJIT Ferrous Sulfate (Ferrous Sulfate) 325 mg PO TID INDERJIT Gabapentin (Neurontin) 300 mg PO TID INDERJIT Dextrose/Sodium Chloride (Dextrose 5%-1/2 Ns) 1,000 mls @ 999 mls/hr IV ASDIRECTED INDERJIT Last Infusion: 11/18/17 03:25 Dose: 999 mls/hr Infusion: 11/18/17 02:30 Dose: 0 mls/hr Admin: 11/18/17 02:05 Dose: 999 mls/hr Potassium Chloride/Sodium Chloride (Normal Saline With 20 Meq Kcl) 1,000 mls @ 125 mls/hr IV ASDIRECTED INDERJIT Last Admin: 11/18/17 05:09 Dose: 125 mls/hr Levothyroxine Sodium (Levothroid) mcg PO ACBREAKFAST INDERJIT Magnesium Oxide (Magnesium Oxide) 400 mg PO WITHLUNCH [facility] Magnesium Oxide (Magnesium Oxide) 800 mg PO BID [facility] Metolazone (Zaroxolyn) 2.5 mg PO THSA [facility] Non-Formulary Medication (Bumetanide [Bumex]) 3 mg PO BID INDERJIT Non-Formulary Medication (Calcium Carb/Magnesium Hydrox [Rolaids Chewable Tablet ]) 2 tab PO Q1H PRN PRN Reason: Indigestion Non-Formulary Medication (Cholecalciferol (Vitamin D3) [Vitamin D3]) 1,000 unit PO WITHLUNCH INDERJIT Non-Formulary Medication (Fluoxetine [Prozac]) 40 mg PO BID INDERJIT Non-Formulary Medication (Guaifenesin [Guaifenesin]) 400 mg PO Q6H PRN PRN Reason: Cough Non-Formulary Medication (Hydrocortisone-Aloe 2% Gel) 1 applic TOP ASDIRECTED PRN PRN Reason: EAR Non-Formulary Medication (Insulin Glargine,Hum.Rec.Anlog [Touliuso Solostar]) 96 units SQ DAILY INDERJIT Non-Formulary Medication (Magic Mouth Wash) 5 ml PO QID PRN PRN Reason: MOUTH LESIONS Non-Formulary Medication (Mupirocin Calcium [Bactroban]) 15 gm TP BID PRN PRN Reason: BOILS Pantoprazole Sodium (Protonix) 40 mg PO ACBREAKFAST INDERJIT Polyethylene Glycol (Miralax) 17 gm PO DAILY PRN PRN Reason: Constipation Potassium Chloride (Klor-Con 10) 20 meq PO BID INDERJIT Pravastatin Sodium (Pravachol) 20 mg PO BEDTIME INDERJIT Pyridoxine HCl (Vitamin B6-Pyridoxine) 100 mg PO PCLUNCH INDERJIT Senna (Senna) mg PO BEDTIME PRN PRN Reason: Constipation Sodium Chloride (Saline Flush) 10 ml FLUSH ASDIRECTED PRN PRN Reason: Keep Vein Open Spironolactone (Aldactone) mg PO BID INDERJIT Tramadol HCl (Ultram) 50 mg PO Q12H PRN PRN Reason: Pain Trazodone HCl (Trazodone) 50 mg PO BEDTIME INDERJIT Warfarin Sodium (Coumadin) 5 mg PO DAILY INDERJIT Labs: Laboratory Tests 11/18/17 11/18/17 11/18/17 Range/Units 02:01 02:01 02:01 WBC 8.0 (4.5-12.0) X10-3/uL RBC 3.83 (3.23-5.20) x10(6)uL Hgb 11.4 L (11.5-15.5) g/dL Hct 35.3 (30.0-51.3) % MCV 92.3 (80-96) fL MCH 29.9 (27.7-33.6) pg MCHC 32.4 (32.2-35.4) g/dL RDW 15.0 (11.5-15.5) % Plt Count 149 (125-369) X10(3)uL MPV 8.7 (7.4-10.4) fL Neut % (Auto) 66.2 (46-82) % Lymph % (Auto) 19.8 (13-37) % [place] % (Auto) 10.8 (4-12) % Eos % (Auto) 3 (1.0-5.0) % Baso % (Auto) 0 (0-2) % Neut # (Auto) 5.3 (1.6-8.3) # Lymph # (Auto) 1.6 (0.6-5.0) # [place] # (Auto) 0.9 (0.0-1.3) # Eos # (Auto) 0.2 (0.0-0.8) # Baso # (Auto) 0.0 (0.0-0.2) # Sodium 139 (135-145) mmol/L Potassium 3.0 L D (3.5-5.3) mmol/L Chloride 100 (100-110) mmol/L Carbon Dioxide 33 H (21-32) mmol/L BUN 26 H (7-18) mg/dL Creatinine 1.5 H (0.55-1.02) mg/dL Est Cr Clr Drug Dosing TNP Estimated GFR (MDRD) 35 L (>60) BUN/Creatinine Ratio 17.3 (9-20) Glucose 161 H (80-116) mg/dL POC Glucose (80-116) mg/dL Hemoglobin A1c (4.5-6.2) % Calcium 8.8 (8.6-10.2) mg/dL Magnesium (1.8-2.5) mg/dL Creatine Kinase (60-160) IU/L Troponin I (<0.017-0.056) ng/mL Urine Color (YELLOW) Urine Appearance (CLEAR) Urine pH (5.0-6.5) Ur Specific [place] (1.010-1.025) Urine Protein (NEGATIVE) mg/dL Urine Glucose (UA) (NEGATIVE) mg/dL Urine Ketones (NEGATIVE) mg/dL Urine Occult Blood (NEGATIVE) Urine Nitrite (NEGATIVE) Urine Bilirubin (NEGATIVE) Urine Urobilinogen (NEGATIVE) mg/dL Ur Leukocyte Esterase (NEGATIVE) Urine RBC (0) Urine WBC (0) Ur Squamous Epith Cells (NS,R,O) Urine Bacteria (NS) Urine Mucus (NS) Ethyl Alcohol < 0.03 (<0.03) % 11/18/17 11/18/17 11/18/17 Range/Units 02:01 02:01 02:01 WBC (4.5-12.0) X10-3/uL RBC (3.23-5.20) x10(6)uL Hgb (11.5-15.5) g/dL Hct (30.0-51.3) % MCV (80-96) fL MCH (27.7-33.6) pg MCHC (32.2-35.4) g/dL RDW (11.5-15.5) % Plt Count (125-369) X10(3)uL MPV (7.4-10.4) fL Neut % (Auto) (46-82) % Lymph % (Auto) (13-37) % [place] % (Auto) (4-12) % Eos % (Auto) (1.0-5.0) % Baso % (Auto) (0-2) % Neut # (Auto) (1.6-8.3) # Lymph # (Auto) (0.6-5.0) # [place] # (Auto) (0.0-1.3) # Eos # (Auto) (0.0-0.8) # Baso # (Auto) (0.0-0.2) # Sodium (135-145) mmol/L Potassium (3.5-5.3) mmol/L Chloride (100-110) mmol/L Carbon Dioxide (21-32) mmol/L BUN (7-18) mg/dL Creatinine (0.55-1.02) mg/dL Est Cr Clr Drug Dosing Estimated GFR (MDRD) (>60) BUN/Creatinine Ratio (9-20) Glucose (80-116) mg/dL POC Glucose (80-116) mg/dL Hemoglobin A1c 5.7 (4.5-6.2) % Calcium (8.6-10.2) mg/dL Magnesium (1.8-2.5) mg/dL Creatine Kinase 59 L (60-160) IU/L Troponin I < 0.017 L (<0.017-0.056) ng/mL Urine Color (YELLOW) Urine Appearance (CLEAR) Urine pH (5.0-6.5) Ur Specific [place] (1.010-1.025) Urine Protein (NEGATIVE) mg/dL Urine Glucose (UA) (NEGATIVE) mg/dL Urine Ketones (NEGATIVE) mg/dL Urine Occult Blood (NEGATIVE) Urine Nitrite (NEGATIVE) Urine Bilirubin (NEGATIVE) Urine Urobilinogen (NEGATIVE) mg/dL Ur Leukocyte Esterase (NEGATIVE) Urine RBC (0) Urine WBC (0) Ur Squamous Epith Cells (NS,R,O) Urine Bacteria (NS) Urine Mucus (NS) Ethyl Alcohol (<0.03) % 11/18/17 11/18/17 11/18/17 Range/Units 02:01 02:22 03:23 WBC (4.5-12.0) X10-3/uL RBC (3.23-5.20) x10(6)uL Hgb (11.5-15.5) g/dL Hct (30.0-51.3) % MCV (80-96) fL MCH (27.7-33.6) pg MCHC (32.2-35.4) g/dL RDW (11.5-15.5) % Plt Count (125-369) X10(3)uL MPV (7.4-10.4) fL Neut % (Auto) (46-82) % Lymph % (Auto) (13-37) % [place] % (Auto) (4-12) % Eos % (Auto) (1.0-5.0) % Baso % (Auto) (0-2) % Neut # (Auto) (1.6-8.3) # Lymph # (Auto) (0.6-5.0) # [place] # (Auto) (0.0-1.3) # Eos # (Auto) (0.0-0.8) # Baso # (Auto) (0.0-0.2) # Sodium (135-145) mmol/L Potassium (3.5-5.3) mmol/L Chloride (100-110) mmol/L Carbon Dioxide (21-32) mmol/L BUN (7-18) mg/dL Creatinine (0.55-1.02) mg/dL Est Cr Clr Drug Dosing Estimated GFR (MDRD) (>60) BUN/Creatinine Ratio (9-20) Glucose (80-116) mg/dL POC Glucose 270 H 264 H (80-116) mg/dL Hemoglobin A1c (4.5-6.2) % Calcium (8.6-10.2) mg/dL Magnesium 2.2 (1.8-2.5) mg/dL Creatine Kinase (60-160) IU/L Troponin I (<0.017-0.056) ng/mL Urine Color (YELLOW) Urine Appearance (CLEAR) Urine pH (5.0-6.5) Ur Specific [place] (1.010-1.025) Urine Protein (NEGATIVE) mg/dL Urine Glucose (UA) (NEGATIVE) mg/dL Urine Ketones (NEGATIVE) mg/dL Urine Occult Blood (NEGATIVE) Urine Nitrite (NEGATIVE) Urine Bilirubin (NEGATIVE) Urine Urobilinogen (NEGATIVE) mg/dL Ur Leukocyte Esterase (NEGATIVE) Urine RBC (0) Urine WBC (0) Ur Squamous Epith Cells (NS,R,O) Urine Bacteria (NS) Urine Mucus (NS) Ethyl Alcohol (<0.03) % 11/18/17 Range/Units 03:27 WBC (4.5-12.0) X10-3/uL RBC (3.23-5.20) x10(6)uL Hgb (11.5-15.5) g/dL Hct (30.0-51.3) % MCV (80-96) fL MCH (27.7-33.6) pg MCHC (32.2-35.4) g/dL RDW (11.5-15.5) % Plt Count (125-369) X10(3)uL MPV (7.4-10.4) fL Neut % (Auto) (46-82) % Lymph % (Auto) (13-37) % [place] % (Auto) (4-12) % Eos % (Auto) (1.0-5.0) % Baso % (Auto) (0-2) % Neut # (Auto) (1.6-8.3) # Lymph # (Auto) (0.6-5.0) # [place] # (Auto) (0.0-1.3) # Eos # (Auto) (0.0-0.8) # Baso # (Auto) (0.0-0.2) # Sodium (135-145) mmol/L Potassium (3.5-5.3) mmol/L Chloride (100-110) mmol/L Carbon Dioxide (21-32) mmol/L BUN (7-18) mg/dL Creatinine (0.55-1.02) mg/dL Est Cr Clr Drug Dosing Estimated GFR (MDRD) (>60) BUN/Creatinine Ratio (9-20) Glucose (80-116) mg/dL POC Glucose (80-116) mg/dL Hemoglobin A1c (4.5-6.2) % Calcium (8.6-10.2) mg/dL Magnesium (1.8-2.5) mg/dL Creatine Kinase (60-160) IU/L Troponin I (<0.017-0.056) ng/mL Urine Color Yellow (YELLOW) Urine Appearance Slightly cloudy (CLEAR) Urine pH 7.0 H (5.0-6.5) Ur Specific [place] 1.015 (1.010-1.025) Urine Protein Negative (NEGATIVE) mg/dL Urine Glucose (UA) 250 H (NEGATIVE) mg/dL Urine Ketones Negative (NEGATIVE) mg/dL Urine Occult Blood Negative (NEGATIVE) Urine Nitrite Negative (NEGATIVE) Urine Bilirubin Negative (NEGATIVE) Urine Urobilinogen Normal (NEGATIVE) mg/dL Ur Leukocyte Esterase Negative (NEGATIVE) Urine RBC 0-5 (0) Urine WBC 0-5 (0) Ur Squamous Epith Cells Few H (NS,R,O) Urine Bacteria Few H (NS) Urine Mucus Few H (NS) Ethyl Alcohol (<0.03) % Meds: Medications Generic Name Dose Route Start Last Admin Trade Name Freq PRN Reason Stop Dose Admin Acetaminophen 1,000 mg 11/18/17 08:35 Tylenol Extra Strength PO Q8HR PRN Headache Albuterol 2.5 mg 11/18/17 08:35 Proventil Neb Soln INH Q4H PRN BREATHING Aspirin 81 mg 11/18/17 09:00 Halfprin PO DAILY [facility] Budesonide 0.5 mg 11/18/17 09:00 Pulmicort INH BID INDERJIT Bupropion HCl 150 mg 11/18/17 09:00 Wellbutrin Xl PO DAILY INDERJIT Fentanyl 25 mcg 11/18/17 08:45 Duragesic TRDERM Q72H INDERJIT Ferrous Sulfate 325 mg 11/18/17 09:00 Ferrous Sulfate PO TID INDERJIT Gabapentin 300 mg 11/18/17 09:00 Neurontin PO TID INDERJIT Dextrose/Sodium Chloride 1,000 mls @ 999 mls/hr 11/18/17 02:05 11/18/17 03:25 Dextrose 5%-1/2 Ns IV 999 mls/hr ASDIRECTED INDERJIT Infusion Potassium Chloride/Sodium Chloride 1,000 mls @ 125 mls/hr 11/18/17 04:30 02/26 05:09 Normal Saline With 20 Meq Kcl IV 125 mls/hr ASDIRECTED INDERJIT Administration Levothyroxine Sodium mcg 11/19/17 07:30 Levothroid PO ACBREAKFAST INDERJIT Magnesium Oxide 400 mg 11/18/17 12:00 Magnesium Oxide PO WITHLUNCH INDERJIT Magnesium Oxide 800 mg 11/18/17 09:00 Magnesium Oxide PO BID INDERJIT Metolazone 2.5 mg 11/20/17 08:35 Zaroxolyn PO THSA INDERJIT Non-Formulary Medication 3 mg 11/18/17 09:00 Bumetanide [Bumex] PO BID INDERJIT Non-Formulary Medication 2 tab 11/18/17 08:35 Calcium Carb/Magnesium Hydrox [Rolaids Chewable Tablet] PO Q1H PRN Indigestion Non-Formulary Medication 1,000 unit 11/18/17 12:00 Cholecalciferol (Vitamin D3) [Vitamin D3] PO WITHLUNCH INDERJIT Non-Formulary Medication 40 mg 11/18/17 09:00 Fluoxetine [Prozac] PO BID INDERJIT Non-Formulary Medication 400 mg 11/18/17 08:35 Guaifenesin [Guaifenesin] PO Q6H PRN Cough Non-Formulary Medication 1 applic 11/18/17 08:35 Hydrocortisone-Aloe 2% Gel TOP ASDIRECTED PRN EAR Non-Formulary Medication 96 units 11/18/17 09:00 Insulin Glargine,Hum.Rec.Anlog [Toujeo Solostar] SQ DAILY INDERJIT Non-Formulary Medication 5 ml 11/18/17 08:35 Magic Mouth Wash PO QID PRN MOUTH LESIONS Non-Formulary Medication 15 gm 11/18/17 08:35 Mupirocin Calcium [Bactroban] TP BID PRN BOILS Pantoprazole Sodium 40 mg 11/19/17 07:30 Protonix PO ACBREAKFAST INDERJIT Polyethylene Glycol 17 gm 11/18/17 08:35 Miralax PO DAILY PRN Constipation Potassium Chloride 20 meq 11/18/17 09:00 Klor-Con 10 PO BID [facility] Pravastatin Sodium 20 mg 11/18/17 21:00 Pravachol PO BEDTIME INDERJIT Pyridoxine HCl 100 mg 11/18/17 13:00 Vitamin B6-Pyridoxine PO PCLUNCH INDERJIT Senna mg 11/18/17 08:35 Senna PO BEDTIME PRN Constipation Sodium Chloride 10 ml 11/18/17 03:29 Saline Flush FLUSH ASDIRECTED PRN Keep Vein Open Spironolactone mg 11/18/17 09:00 Aldactone PO BID INDERJIT Tramadol HCl 50 mg 11/18/17 08:35 Ultram PO Q12H PRN Pain Trazodone HCl 50 mg 11/18/17 21:00 Trazodone PO BEDTIME INDERJIT Warfarin Sodium 5 mg 11/18/17 09:00 Coumadin PO DAILY [facility] Discontinued Medications Generic Name Dose Route Start Last Admin Trade Name Freq PRN Reason Stop Dose Admin Dextrose 15 gm 11/18/17 01:50 11/18/17 01:50 Glutose 15 PO 11/18/17 01:51 15 gm ONETIME ONE Administration Dextrose/Water 50 ml 11/18/17 01:50 11/18/17 01:50 Dextrose 50% In Water IVPUSH 11/18/17 01:51 50 ml ONETIME ONE Administration Potassium Chloride/Dextrose/Sod Cl 1,000 mls @ 999 mls/hr 11/18/17 02:00 D5 1/2 Ns W/ 10 Meq/L Kcl IV ASDIRECTED [facility] Sodium Chloride 1,000 mls @ 999 mls/hr 11/18/17 02:00 Sodium Chloride 0.45% IV ASDIRECTED [facility] Lactated Ringer's 1,000 mls @ 999 mls/hr 11/18/17 02:30 11/18/17 02:30 Ringers, Lactated IV 11/18/17 03:30 999 mls/hr BOLUS ONE Administration Potassium Chloride 40 meq 11/18/17 02:58 11/18/17 03:05 Klor-Con M20 PO 11/18/17 02:59 40 meq ONETIME ONE Administration Departure - Departure Time of Disposition: 14:00 Disposition: Admitted As Inpatient 68 Condition: Fair, Poor Clinical Impression: Hypoglycemia - Discharge Information - My Orders Last 24 Hours: My Active Orders 11/18/17 02:05 Dextrose 5%-0.45% NaCl [Dextrose 5%-1/2 NS] 1,000 ml IV ASDIRECTED 11/18/17 02:47 EKG Documentation Completion [RC] ASDIRECTED EKG 12 Lead [EK] Routine 11/18/17 03:27 UA W/MICROSCOPIC [URIN] Stat 11/18/17 04:13 DRUG SCREEN, URINE ALERE [URCHEM] Stat - Assessment/Plan Last 24 Hours: My Active Orders 11/18/17 02:05 Dextrose 5%-0.45% NaCl [Dextrose 5%-1/2 NS] 1,000 ml IV ASDIRECTED 11/18/17 02:47 EKG Documentation Completion [RC] ASDIRECTED EKG 12 Lead [EK] Routine 11/18/17 03:27 UA W/MICROSCOPIC [URIN] Stat 11/18/17 04:13 DRUG SCREEN, URINE ALERE [URCHEM] Stat
[2017-11-18] MEDS ORDERED: D5 1/2 NS w/ 10 mEq/L KCl 1,000 ML IV SCH (02:00)
[2017-11-18] MEDS ORDERED: Sodium Chloride 0.45% 1,000 ML IV SCH (02:00)
[2017-11-18] MEDS ORDERED: Dextrose 5%-0.45% NaCl 1,000 ML IV SCH (02:05)
[2017-11-18] MEDS ORDERED: Lactated Ringers 1,000 ML IV ONE (02:30)
[2017-11-18] MEDS ORDERED: Potassium Chloride 20 MEQ Tab.ER PO ONE (02:58)
[2017-11-18] MEDS ORDERED: Sodium Chloride 0.9% 10 ML Syringe FLUSH PRN (03:29)
[2017-11-18] MEDS ORDERED: NS + KCl 20mEq/L 1,000 ML IV SCH (04:30)
[2017-11-18] MEDS ORDERED: GUAIFENESIN 400 MG PO PRN (08:35)
[2017-11-18] MEDS ORDERED: ALOE TOP PRN (08:35)
[2017-11-18] MEDS ORDERED: traMADol 50 MG Tab PO PRN (08:35)
[2017-11-18] MEDS ORDERED: [UNRECOGNIZED DRUG - OTHER] PO PRN (08:35)
[2017-11-18] MEDS ORDERED: MUPIROCIN CALCIUM 15 GM TP PRN (08:35)
[2017-11-18] MEDS ORDERED: Acetaminophen 500 MG Tab PO PRN (08:35)
[2017-11-18] MEDS ORDERED: MAGNESIUM HYDROX PO PRN (08:35)
[2017-11-18] MEDS ORDERED: MAGIC MOUTH WASH PO PRN (08:35)
[2017-11-18] MEDS ORDERED: Sennosides 8.6 MG Tab PO PRN (08:35)
[2017-11-18] MEDS ORDERED: CALCIUM CARB PO PRN (08:35)
[2017-11-18] MEDS ORDERED: Polyethylene Glycol 3350 Powder 17 GM Packet PO PRN (08:35)
[2017-11-18] MEDS ORDERED: Albuterol 0.083% 2.5 MG/3 ML Neb Soln INH PRN (08:35)
[2017-11-18] MEDS ORDERED: HYDROCORTISONE TOP PRN (08:35)
[2017-11-18] MEDS ORDERED: fentaNYL 25 MCG/HR Transdermal Patch TRDERM SCH (08:45)
--- NOTE | 2017-11-18 08:47 | PCM.HP ---
H&P History of Present Illness - General Date of Service: 11/18/17 Admit Problem/Dx: Admission Diagnosis/Problem Admission Diagnosis/Problem Hypoglycemia associated with type 2 diabetes mellitus Source of Information: Patient, EMS Notes Reviewed, Old Records History Limitations: Reports: No Limitations - History of Present Illness Initial Comments - Free Text/Narative: Yahaira is a 67-year-old female with the type 2 diabetes.She woke up at midnight and felt hypoglycemic, with weakness trembling sweating. [facility] She was brought to the ER by the ambulance found a blood sugar of less than 20 on the scene. She was given D50 and some fluids spelled feeling better - Related Data Allergies/Adverse Reactions: Allergies Allergy/AdvReac Type Severity Reaction Status Date / Time budesonide [From Symbicort] Allergy Hives Verified 11/18/17 02:49 codeine Allergy Cannot Verified 11/18/17 02:49 Remember duloxetine HCl Allergy Cannot Verified 11/18/17 02:49 [From Cymbalta] Remember formoterol [From Symbicort] Allergy Hives Verified 11/18/17 02:49 hydrocodone Allergy Cannot Verified 11/18/17 02:49 Remember Home Medications: Home Meds Albuterol/Ipratropium [DuoNeb 3.0-0.5 MG/3 ML] 3 ml IH QID 10/19/14 [History] Aspirin [Halfprin] 81 mg PO DAILY 10/19/14 [History] Budesonide [Pulmicort] 0.5 mg IH BID 10/19/14 [History] Bumetanide [Bumex] 3 mg PO BID 10/19/14 [History] FLUoxetine [PROzac] 40 mg PO BID 10/19/14 [History] Insulin Lispro [Humalog Kwikpen U-100] 31 unit SQ TIDMEALS 10/19/14 [History] Levothyroxine Sodium [Synthroid] 2 tab PO ACBREAKFAST 10/19/14 [History] Magic Mouth Wash 5 ml PO QID PRN 10/19/14 [History] Polyethylene Glycol 3350 [MiraLAX] 17 gm PO DAILY PRN 10/19/14 [History] Potassium Chloride [Klor-Con 10] 20 meq PO BID 10/19/14 [History] Warfarin [Coumadin] 5 mg PO DAILY 10/19/14 [History] Acetaminophen [Tylenol Extra Strength] 1,000 mg PO Q8HR PRN 10/09/16 [History] Ferrous Sulfate 325 mg PO TID 10/09/16 [History] Insulin Glargine,Hum.Rec.Anlog [Toujeo Solostar] 96 units SQ DAILY 10/09/16 [ History] Magnesium Oxide 800 mg PO BID 10/09/16 [History] Metolazone 2.5 mg PO THSA 10/09/16 [History] Vitamin B6-pyridOXINE 100 mg PO PCLUNCH 10/09/16 [History] fentaNYL [Duragesic] 25 mcg TRDERM Q72H 10/09/16 [History] traZODone 50 mg PO BEDTIME 10/09/16 [History] Cholecalciferol (Vitamin D3) [Vitamin D3] 1,000 unit PO WITHLUNCH 05/05/17 [ History] Magnesium Oxide 400 mg PO WITHLUNCH 05/05/17 [History] Pravastatin [Pravachol] 20 mg PO BEDTIME 05/05/17 [History] Spironolactone [Aldactone] 1 tab PO BID 05/05/17 [History] traMADol HCl [Tramadol HCl] 50 - 100 mg PO Q12H PRN 05/05/17 [History] Albuterol Sulfate 2.5 mg IH Q4H PRN 05/26/17 [History] Calcium Carb/Magnesium Hydrox [Rolaids Chewable Tablet] 2 tab PO Q1H PRN [History] Gabapentin [Neurontin] 300 mg PO TID 05/26/17 [History] Hydrocortisone-Aloe 2% Gel 1 applic TOP ASDIRECTED PRN 05/26/17 [History] Insulin Lispro [Humalog] 0 units SQ TIDMEALS 05/26/17 [History] Mupirocin Calcium [Bactroban] 15 gm TP BID PRN 05/26/17 [History] Pantoprazole [ProTONIX] 40 mg PO ACBREAKFAST 05/26/17 [History] Sennosides [Senna] 2 tab PO BEDTIME PRN 05/26/17 [History] buPROPion HCl [Wellbutrin Xl] 150 mg PO DAILY 05/26/17 [History] guaiFENesin [Guaifenesin] 400 mg PO Q6H PRN 05/26/17 [History] Past Medical History HEENT History: Reports: Impaired Vision Cardiovascular History: Reports: Heart Failure, Hypertension Respiratory History: Reports: COPD, Other (See Below) Other Respiratory History: Is on 2L/NC @ home all time. Has CPAP. 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: Musculoskeletal History: Reports: Back Pain, Chronic, Fracture, Fibromyalgia Other Musculoskeletal History: hx L wrist fx Psychiatric History: Reports: Depression Endocrine/Metabolic History: Reports: Diabetes, Type II, Hypothyroidism, Obesity /BMI 30+ Other Endocrine/Metabolic History: GRAVES DISEASE Hematologic History: Reports: Anemia Dermatologic History: Reports: Other (See Below) Other Dermatologic History: occ rash - Infectious Disease History Infectious Disease History: Reports: Chicken Pox, Measles, Mumps - Past Surgical History HEENT Surgical History: Reports: Tonsillectomy, Other (See Below) GI Surgical History: Reports: Appendectomy, Cholecystectomy Social & Family History - Family History Family Medical History: Noncontributory Cardiac: Reports: Hypertension : Reports: Cystic Kidney Disease Endocrine/Metabolic: Reports: Diabetes, type II - Tobacco Use Smoking Status *Q: Never Smoker Used Tobacco, but Quit: No Second Hand Smoke Exposure: No - Caffeine Use Caffeine Use: Reports: None - Recreational Drug Use Recreational Drug Use: No H&P Review of Systems - Review of Systems: Review Of Systems: ROS reveals no pertinent complaints other than HPI. Exam - Exam Exam: See Below - Vital Signs Vital Signs: Last Vital Signs Temp 94.3 F L 11/18/17 04:20 Pulse 58 L 11/18/17 04:20 Resp 20 11/18/17 04:20 BP 140/62 11/18/17 04:20 Pulse Ox 100 11/18/17 04:20 Weight: 119.476 kg - Exam Quality Assessment: Supplemental Oxygen General: Alert, Oriented HEENT: PERRLA Neck: Supple Lungs: Clear to Auscultation, Crackles Cardiovascular: Regular Rate, Irregular Rhythm GI/Abdominal Exam: Normal Bowel Sounds Back Exam: Normal Inspection Skin: Warm, Dry, Intact Neurological: Cranial Nerves Intact, Reflexes Equal Bilateral Neuro Extensive - Mental Status: Alert, Oriented x3, Normal Mood/Affect, Normal Cognition Psychiatric: Alert - Patient Data Lab Results Last 24 hrs: Laboratory Results - last 24 hr 11/18/17 11/18/17 11/18/17 Range/Units 02:01 02:01 02:01 WBC 8.0 (4.5-12.0) X10-3/uL RBC 3.83 (3.23-5.20) x10(6)uL Hgb 11.4 L (11.5-15.5) g/dL Hct 35.3 (30.0-51.3) % MCV 92.3 (80-96) fL MCH 29.9 (27.7-33.6) pg MCHC 32.4 (32.2-35.4) g/dL RDW 15.0 (11.5-15.5) % Plt Count 149 (125-369) X10(3)uL MPV 8.7 (7.4-10.4) fL Neut % (Auto) 66.2 (46-82) % Lymph % (Auto) 19.8 (13-37) % [place] % (Auto) 10.8 (4-12) % Eos % (Auto) 3 (1.0-5.0) % Baso % (Auto) 0 (0-2) % Neut # (Auto) 5.3 (1.6-8.3) # Lymph # (Auto) 1.6 (0.6-5.0) # [place] # (Auto) 0.9 (0.0-1.3) # Eos # (Auto) 0.2 (0.0-0.8) # Baso # (Auto) 0.0 (0.0-0.2) # POC VBG pH (7.31-7.41) POC VBG pCO2 (41-51) mmHG POC VBG HCO3 (23-28) mmol/L POC VBG Total CO2 (24-29) mmol/L POC VBG Base Excess (-2-3) mmol/L Sodium 139 (135-145) mmol/L Potassium 3.0 L D (3.5-5.3) mmol/L Chloride 100 (100-110) mmol/L Carbon Dioxide 33 H (21-32) mmol/L BUN 26 H (7-18) mg/dL Creatinine 1.5 H (0.55-1.02) mg/dL Est Cr Clr Drug Dosing TNP Estimated GFR (MDRD) 35 L (>60) BUN/Creatinine Ratio 17.3 (9-20) Glucose 161 H (80-116) mg/dL POC Glucose (80-116) mg/dL Hemoglobin A1c (4.5-6.2) % Lactic Acid (0.4-2.2) mmol/L Calcium 8.8 (8.6-10.2) mg/dL Magnesium (1.8-2.5) mg/dL Creatine Kinase (60-160) IU/L Troponin I (<0.017-0.056) ng/mL Urine Color (YELLOW) Urine Appearance (CLEAR) Urine pH (5.0-6.5) Ur Specific [place] (1.010-1.025) Urine Protein (NEGATIVE) mg/dL Urine Glucose (UA) (NEGATIVE) mg/dL Urine Ketones (NEGATIVE) mg/dL Urine Occult Blood (NEGATIVE) Urine Nitrite (NEGATIVE) Urine Bilirubin (NEGATIVE) Urine Urobilinogen (NEGATIVE) mg/dL Ur Leukocyte Esterase (NEGATIVE) Urine RBC (0) Urine WBC (0) Ur Squamous Epith Cells (NS,R,O) Urine Bacteria (NS) Urine Mucus (NS) Urine Opiates Screen (NEGATIVE) Ur Oxycodone Screen (NEGATIVE) Ur Propoxyphene Screen (NEGATIVE) Ur Barbituates Screen (NEGATIVE) Ur Tricyclics Screen (NEGATIVE) Ur Phencyclidine Scrn (NEGATIVE) Ur Amphetamine Screen (NEGATIVE) Urine MDMA Screen (NEGATIVE) U Benzodiazepines Scrn (NEGATIVE) U Cocaine Metab Screen (NEGATIVE) U Marijuana (THC) Screen (NEGATIVE) Ethyl Alcohol < 0.03 (<0.03) % 11/18/17 11/18/17 11/18/17 Range/Units 02:01 02:01 02:01 WBC (4.5-12.0) X10-3/uL RBC (3.23-5.20) x10(6)uL Hgb (11.5-15.5) g/dL Hct (30.0-51.3) % MCV (80-96) fL MCH (27.7-33.6) pg MCHC (32.2-35.4) g/dL RDW (11.5-15.5) % Plt Count (125-369) X10(3)uL MPV (7.4-10.4) fL Neut % (Auto) (46-82) % Lymph % (Auto) (13-37) % [place] % (Auto) (4-12) % Eos % (Auto) (1.0-5.0) % Baso % (Auto) (0-2) % Neut # (Auto) (1.6-8.3) # Lymph # (Auto) (0.6-5.0) # [place] # (Auto) (0.0-1.3) # Eos # (Auto) (0.0-0.8) # Baso # (Auto) (0.0-0.2) # POC VBG pH (7.31-7.41) POC VBG pCO2 (41-51) mmHG POC VBG HCO3 (23-28) mmol/L POC VBG Total CO2 (24-29) mmol/L POC VBG Base Excess (-2-3) mmol/L Sodium (135-145) mmol/L Potassium (3.5-5.3) mmol/L Chloride (100-110) mmol/L Carbon Dioxide (21-32) mmol/L BUN (7-18) mg/dL Creatinine (0.55-1.02) mg/dL Est Cr Clr Drug Dosing Estimated GFR (MDRD) (>60) BUN/Creatinine Ratio (9-20) Glucose (80-116) mg/dL POC Glucose (80-116) mg/dL Hemoglobin A1c 5.7 (4.5-6.2) % Lactic Acid (0.4-2.2) mmol/L Calcium (8.6-10.2) mg/dL Magnesium (1.8-2.5) mg/dL Creatine Kinase 59 L (60-160) IU/L Troponin I < 0.017 L (<0.017-0.056) ng/mL Urine Color (YELLOW) Urine Appearance (CLEAR) Urine pH (5.0-6.5) Ur Specific [place] (1.010-1.025) Urine Protein (NEGATIVE) mg/dL Urine Glucose (UA) (NEGATIVE) mg/dL Urine Ketones (NEGATIVE) mg/dL Urine Occult Blood (NEGATIVE) Urine Nitrite (NEGATIVE) Urine Bilirubin (NEGATIVE) Urine Urobilinogen (NEGATIVE) mg/dL Ur Leukocyte Esterase (NEGATIVE) Urine RBC (0) Urine WBC (0) Ur Squamous Epith Cells (NS,R,O) Urine Bacteria (NS) Urine Mucus (NS) Urine Opiates Screen (NEGATIVE) Ur Oxycodone Screen (NEGATIVE) Ur Propoxyphene Screen (NEGATIVE) Ur Barbituates Screen (NEGATIVE) Ur Tricyclics Screen (NEGATIVE) Ur Phencyclidine Scrn (NEGATIVE) Ur Amphetamine Screen (NEGATIVE) Urine MDMA Screen (NEGATIVE) U Benzodiazepines Scrn (NEGATIVE) U Cocaine Metab Screen (NEGATIVE) U Marijuana (THC) Screen (NEGATIVE) Ethyl Alcohol (<0.03) % 11/18/17 11/18/17 11/18/17 Range/Units 02:01 02:22 03:23 WBC (4.5-12.0) X10-3/uL RBC (3.23-5.20) x10(6)uL Hgb (11.5-15.5) g/dL Hct (30.0-51.3) % MCV (80-96) fL MCH (27.7-33.6) pg MCHC (32.2-35.4) g/dL RDW (11.5-15.5) % Plt Count (125-369) X10(3)uL MPV (7.4-10.4) fL Neut % (Auto) (46-82) % Lymph % (Auto) (13-37) % [place] % (Auto) (4-12) % Eos % (Auto) (1.0-5.0) % Baso % (Auto) (0-2) % Neut # (Auto) (1.6-8.3) # Lymph # (Auto) (0.6-5.0) # [place] # (Auto) (0.0-1.3) # Eos # (Auto) (0.0-0.8) # Baso # (Auto) (0.0-0.2) # POC VBG pH (7.31-7.41) POC VBG pCO2 (41-51) mmHG POC VBG HCO3 (23-28) mmol/L POC VBG Total CO2 (24-29) mmol/L POC VBG Base Excess (-2-3) mmol/L Sodium (135-145) mmol/L Potassium (3.5-5.3) mmol/L Chloride (100-110) mmol/L Carbon Dioxide (21-32) mmol/L BUN (7-18) mg/dL Creatinine (0.55-1.02) mg/dL Est Cr Clr Drug Dosing Estimated GFR (MDRD) (>60) BUN/Creatinine Ratio (9-20) Glucose (80-116) mg/dL POC Glucose 270 H 264 H (80-116) mg/dL Hemoglobin A1c (4.5-6.2) % Lactic Acid (0.4-2.2) mmol/L Calcium (8.6-10.2) mg/dL Magnesium 2.2 (1.8-2.5) mg/dL Creatine Kinase (60-160) IU/L Troponin I (<0.017-0.056) ng/mL Urine Color (YELLOW) Urine Appearance (CLEAR) Urine pH (5.0-6.5) Ur Specific [place] (1.010-1.025) Urine Protein (NEGATIVE) mg/dL Urine Glucose (UA) (NEGATIVE) mg/dL Urine Ketones (NEGATIVE) mg/dL Urine Occult Blood (NEGATIVE) Urine Nitrite (NEGATIVE) Urine Bilirubin (NEGATIVE) Urine Urobilinogen (NEGATIVE) mg/dL Ur Leukocyte Esterase (NEGATIVE) Urine RBC (0) Urine WBC (0) Ur Squamous Epith Cells (NS,R,O) Urine Bacteria (NS) Urine Mucus (NS) Urine Opiates Screen (NEGATIVE) Ur Oxycodone Screen (NEGATIVE) Ur Propoxyphene Screen (NEGATIVE) Ur Barbituates Screen (NEGATIVE) Ur Tricyclics Screen (NEGATIVE) Ur Phencyclidine Scrn (NEGATIVE) Ur Amphetamine Screen (NEGATIVE) Urine MDMA Screen (NEGATIVE) U Benzodiazepines Scrn (NEGATIVE) U Cocaine Metab Screen (NEGATIVE) U Marijuana (THC) Screen (NEGATIVE) Ethyl Alcohol (<0.03) % 11/18/17 11/18/17 11/18/17 Range/Units 03:27 03:50 03:50 WBC (4.5-12.0) X10-3/uL RBC (3.23-5.20) x10(6)uL Hgb (11.5-15.5) g/dL Hct (30.0-51.3) % MCV (80-96) fL MCH (27.7-33.6) pg MCHC (32.2-35.4) g/dL RDW (11.5-15.5) % Plt Count (125-369) X10(3)uL MPV (7.4-10.4) fL Neut % (Auto) (46-82) % Lymph % (Auto) (13-37) % [place] % (Auto) (4-12) % Eos % (Auto) (1.0-5.0) % Baso % (Auto) (0-2) % Neut # (Auto) (1.6-8.3) # Lymph # (Auto) (0.6-5.0) # [place] # (Auto) (0.0-1.3) # Eos # (Auto) (0.0-0.8) # Baso # (Auto) (0.0-0.2) # POC VBG pH 7.42 H (7.31-7.41) POC VBG pCO2 50.7 (41-51) mmHG POC VBG HCO3 33.1 H (23-28) mmol/L POC VBG Total CO2 35 H (24-29) mmol/L POC VBG Base Excess 9 H (-2-3) mmol/L Sodium (135-145) mmol/L Potassium (3.5-5.3) mmol/L Chloride (100-110) mmol/L Carbon Dioxide (21-32) mmol/L BUN (7-18) mg/dL Creatinine (0.55-1.02) mg/dL Est Cr Clr Drug Dosing Estimated GFR (MDRD) (>60) BUN/Creatinine Ratio (9-20) Glucose (80-116) mg/dL POC Glucose (80-116) mg/dL Hemoglobin A1c (4.5-6.2) % Lactic Acid 2.3 H (0.4-2.2) mmol/L Calcium (8.6-10.2) mg/dL Magnesium (1.8-2.5) mg/dL Creatine Kinase (60-160) IU/L Troponin I (<0.017-0.056) ng/mL Urine Color Yellow (YELLOW) Urine Appearance Slightly cloudy (CLEAR) Urine pH 7.0 H (5.0-6.5) Ur Specific [place] 1.015 (1.010-1.025) Urine Protein Negative (NEGATIVE) mg/dL Urine Glucose (UA) 250 H (NEGATIVE) mg/dL Urine Ketones Negative (NEGATIVE) mg/dL Urine Occult Blood Negative (NEGATIVE) Urine Nitrite Negative (NEGATIVE) Urine Bilirubin Negative (NEGATIVE) Urine Urobilinogen Normal (NEGATIVE) mg/dL Ur Leukocyte Esterase Negative (NEGATIVE) Urine RBC 0-5 (0) Urine WBC 0-5 (0) Ur Squamous Epith Cells Few H (NS,R,O) Urine Bacteria Few H (NS) Urine Mucus Few H (NS) Urine Opiates Screen (NEGATIVE) Ur Oxycodone Screen (NEGATIVE) Ur Propoxyphene Screen (NEGATIVE) Ur Barbituates Screen (NEGATIVE) Ur Tricyclics Screen (NEGATIVE) Ur Phencyclidine Scrn (NEGATIVE) Ur Amphetamine Screen (NEGATIVE) Urine MDMA Screen (NEGATIVE) U Benzodiazepines Scrn (NEGATIVE) U Cocaine Metab Screen (NEGATIVE) U Marijuana (THC) Screen (NEGATIVE) Ethyl Alcohol (<0.03) % 11/18/17 11/18/17 Range/Units 04:13 06:27 WBC (4.5-12.0) X10-3/uL RBC (3.23-5.20) x10(6)uL Hgb (11.5-15.5) g/dL Hct (30.0-51.3) % MCV (80-96) fL MCH (27.7-33.6) pg MCHC (32.2-35.4) g/dL RDW (11.5-15.5) % Plt Count (125-369) X10(3)uL MPV (7.4-10.4) fL Neut % (Auto) (46-82) % Lymph % (Auto) (13-37) % [place] % (Auto) (4-12) % Eos % (Auto) (1.0-5.0) % Baso % (Auto) (0-2) % Neut # (Auto) (1.6-8.3) # Lymph # (Auto) (0.6-5.0) # [place] # (Auto) (0.0-1.3) # Eos # (Auto) (0.0-0.8) # Baso # (Auto) (0.0-0.2) # POC VBG pH (7.31-7.41) POC VBG pCO2 (41-51) mmHG POC VBG HCO3 (23-28) mmol/L POC VBG Total CO2 (24-29) mmol/L POC VBG Base Excess (-2-3) mmol/L Sodium 137 (135-145) mmol/L Potassium 3.9 (3.5-5.3) mmol/L Chloride 100 (100-110) mmol/L Carbon Dioxide 33 H (21-32) mmol/L BUN 26 H (7-18) mg/dL Creatinine 1.5 H (0.55-1.02) mg/dL Est Cr Clr Drug Dosing 33.65 Estimated GFR (MDRD) 35 L (>60) BUN/Creatinine Ratio 17.3 (9-20) Glucose 261 H D (80-116) mg/dL POC Glucose (80-116) mg/dL Hemoglobin A1c (4.5-6.2) % Lactic Acid (0.4-2.2) mmol/L Calcium 8.3 L (8.6-10.2) mg/dL Magnesium (1.8-2.5) mg/dL Creatine Kinase (60-160) IU/L Troponin I (<0.017-0.056) ng/mL Urine Color (YELLOW) Urine Appearance (CLEAR) Urine pH (5.0-6.5) Ur Specific [place] (1.010-1.025) Urine Protein (NEGATIVE) mg/dL Urine Glucose (UA) (NEGATIVE) mg/dL Urine Ketones (NEGATIVE) mg/dL Urine Occult Blood (NEGATIVE) Urine Nitrite (NEGATIVE) Urine Bilirubin (NEGATIVE) Urine Urobilinogen (NEGATIVE) mg/dL Ur Leukocyte Esterase (NEGATIVE) Urine RBC (0) Urine WBC (0) Ur Squamous Epith Cells (NS,R,O) Urine Bacteria (NS) Urine Mucus (NS) Urine Opiates Screen Negative (NEGATIVE) Ur Oxycodone Screen Negative (NEGATIVE) Ur Propoxyphene Screen Negative (NEGATIVE) Ur Barbituates Screen Negative (NEGATIVE) Ur Tricyclics Screen Negative (NEGATIVE) Ur Phencyclidine Scrn Negative (NEGATIVE) Ur Amphetamine Screen Negative (NEGATIVE) Urine MDMA Screen Negative (NEGATIVE) U Benzodiazepines Scrn Negative (NEGATIVE) U Cocaine Metab Screen Negative (NEGATIVE) U Marijuana (THC) Screen Negative (NEGATIVE) Ethyl Alcohol (<0.03) % Result Diagrams: 11/18/17 02:01 11/18/17 06:27 EKG INTERPRETATION Rhythm: NSR - Problem List (1) Hypoglycemia SNOMED Code(s): 462447248 ICD Code: E16.2 - HYPOGLYCEMIA, UNSPECIFIED Status: Acute Current Visit: Yes (2) Back ache SNOMED Code(s): 910893556 ICD Code: M54.9 - DORSALGIA, UNSPECIFIED Status: Chronic Current Visit: No Qualifiers: Back pain location: low back pain Chronicity: unspecified Back pain laterality: midline Sciatica presence: without sciatica Qualified Code(s): M54.5 - Low back pain (3) COPD (chronic obstructive pulmonary disease) SNOMED Code(s): 15794395 ICD Code: J44.9 - CHRONIC OBSTRUCTIVE PULMONARY DISEASE, UNSPECIFIED Status : Chronic Current Visit: No Qualifiers: COPD type: chronic bronchitis (4) Chronic renal failure SNOMED Code(s): 77534595, 119644946 ICD Code: N18.9 - CHRONIC KIDNEY DISEASE, UNSPECIFIED Status: Chronic Current Visit: No Qualifiers: Chronic kidney disease stage: stage 3 (moderate) Qualified Code(s): N18.3 - Chronic kidney disease, stage 3 (moderate) (5) Morbid obesity SNOMED Code(s): 119097075 ICD Code: E66.01 - MORBID (SEVERE) OBESITY DUE TO EXCESS CALORIES Status: Chronic Current Visit: No (6) Sleep apnea SNOMED Code(s): 55867649 ICD Code: G47.30 - SLEEP APNEA, UNSPECIFIED Status: Chronic Current Visit : No Qualifiers: Sleep apnea type: obstructive Qualified Code(s): G47.33 - Obstructive sleep apnea (adult) (pediatric) Problem List Initiated/Reviewed/Updated: Yes Orders Last 24hrs: Active Orders 24 hr Category Date Time Status Patient Status [ADT] Routine ADT 11/18/17 03:29 Active Blood Glucose Check, Bedside [RC] ASDIRECTED Care 11/18/17 01:40 Active EKG Documentation Completion [RC] ASDIRECTED Care 11/18/17 02:47 Active Oxygen Therapy [RC] PRN Care 11/18/17 03:29 Active Pulse Oximetry [RC] CONTINUOUS Care 11/18/17 03:33 Active Up With Assistance [RC] ASDIRECTED Care 11/18/17 03:29 Active VTE/DVT Education [RC] Per Unit Routine Care 11/18/17 03:29 Active Vital Signs [RC] Q4H Care 11/18/17 03:29 Active Consistent Carbohydrate Diet [DIET] Diet 11/18/17 Breakfast Ordered DRUG SCREEN, URINE ALERE [URCHEM] Stat Lab 11/18/17 04:13 Ordered UA W/MICROSCOPIC [URIN] Stat Lab 11/18/17 03:27 Ordered Acetaminophen [Tylenol Extra Strength] Med 11/18/17 08:35 Ordered 1,000 mg PO Q8HR PRN Albuterol [Proventil Neb Soln] Med 11/18/17 08:35 Ordered 2.5 mg INH Q4H PRN Aspirin [Halfprin] Med 11/18/17 09:00 Ordered 81 mg PO DAILY Budesonide [Pulmicort] Med 11/18/17 09:00 Ordered 0.5 mg INH BID Bumetanide [Bumex] Med 11/18/17 09:00 Ordered 3 mg PO BID Calcium Carb/Magnesium Hydrox [Rolaids Chewable Tablet] Med 11/18/17 08:35 Ordered 2 tab PO Q1H PRN Cholecalciferol (Vitamin D3) [Vitamin D3] Med 11/18/17 12:00 Ordered 1,000 unit PO WITHLUNCH Dextrose 5%-0.45% NaCl [Dextrose 5%-1/2 NS] 1,000 ml Med 11/18/17 02:05 Active IV ASDIRECTED FLUoxetine [PROzac] Med 11/18/17 09:00 Ordered 40 mg PO BID Ferrous Sulfate Med 11/18/17 09:00 Ordered 325 mg PO TID Gabapentin [Neurontin] Med 11/18/17 09:00 Ordered 300 mg PO TID Hydrocortisone-Aloe 2% Gel Med 11/18/17 08:35 Ordered 1 applic TOP ASDIRECTED PRN Insulin Glargine,Hum.Rec.Anlog [[place] Solostar] Med 11/18/17 09:00 Ordered 96 units SQ DAILY Levothyroxine [Levothroid] Med 11/19/17 07:30 Ordered 2 tab PO ACBREAKFAST Magic Mouth Wash Med 11/18/17 08:35 Ordered 5 ml PO QID PRN Magnesium Oxide Med 11/18/17 12:00 Ordered 400 mg PO WITHLUNCH Magnesium Oxide Med 11/18/17 09:00 Ordered 800 mg PO BID Metolazone [Zaroxolyn] Med 11/20/17 08:35 Ordered 2.5 mg PO THSA Mupirocin Calcium [Bactroban] Med 11/18/17 08:35 Ordered 15 gm TP BID PRN NS + KCl 20mEq/L [Normal Saline with 20 mEq KCl] 1,000 Med 11/18/17 04:30 Active ml IV ASDIRECTED Pantoprazole [ProTONIX] Med 11/19/17 07:30 Ordered 40 mg PO ACBREAKFAST Polyethylene Glycol 3350 [MiraLAX] Med 11/18/17 08:35 Ordered 17 gm PO DAILY PRN Potassium Chloride [Klor-Con 10] Med 11/18/17 09:00 Ordered 20 meq PO BID Pravastatin [Pravachol] Med 11/18/17 21:00 Ordered 20 mg PO BEDTIME Sennosides [Senna] Med 11/18/17 08:35 Ordered 2 tab PO BEDTIME PRN Sodium Chloride 0.9% [Saline Flush] Med 11/18/17 03:29 Active 10 ml FLUSH ASDIRECTED PRN Spironolactone [Aldactone] Med 11/18/17 09:00 Ordered 1 tab PO BID Vitamin B6-pyridOXINE Med 11/18/17 13:00 Ordered 100 mg PO PCLUNCH Warfarin [Coumadin] Med 11/18/17 09:00 Ordered 5 mg PO DAILY buPROPion [Wellbutrin XL] Med 11/18/17 09:00 Ordered 150 mg PO DAILY fentaNYL [Duragesic] Med 11/18/17 08:45 Ordered 25 mcg TRDERM Q72H guaiFENesin [Guaifenesin] Med 11/18/17 08:35 Ordered 400 mg PO Q6H PRN traMADol [Ultram] Med 11/18/17 08:35 Ordered 50 mg PO Q12H PRN traZODone Med 11/18/17 21:00 Ordered 50 mg PO BEDTIME Peripheral IV Insertion Adult [OM.PC] Routine Oth 11/18/17 03:29 Ordered Resuscitation Status Routine Resus Stat 11/18/17 03:29 Ordered EKG 12 Lead [EK] Routine Ther 11/18/17 02:47 Ordered Medication Orders Acetaminophen (Tylenol Extra Strength) 1,000 mg PO Q8HR PRN PRN Reason: Headache Albuterol (Proventil Neb Soln) 2.5 mg INH Q4H PRN PRN Reason: BREATHING Aspirin (Halfprin) 81 mg PO DAILY [facility] Budesonide (Pulmicort) 0.5 mg INH BID [facility] Bupropion HCl (Wellbutrin Xl) 150 mg PO DAILY [facility] Fentanyl (Duragesic) 25 mcg TRDERM Q72H INDERJIT Ferrous Sulfate (Ferrous Sulfate) 325 mg PO TID INDERJIT Gabapentin (Neurontin) 300 mg PO TID INDERJIT Dextrose/Sodium Chloride (Dextrose 5%-1/2 Ns) 1,000 mls @ 999 mls/hr IV ASDIRECTED INDERJIT Last Infusion: 11/18/17 03:25 Dose: 999 mls/hr Infusion: 11/18/17 02:30 Dose: 0 mls/hr Admin: 11/18/17 02:05 Dose: 999 mls/hr Potassium Chloride/Sodium Chloride (Normal Saline With 20 Meq Kcl) 1,000 mls @ 125 mls/hr IV ASDIRECTED INDERJIT Last Admin: 11/18/17 05:09 Dose: 125 mls/hr Levothyroxine Sodium (Levothroid) mcg PO ACBREAKFAST [facility] Magnesium Oxide (Magnesium Oxide) 400 mg PO WITHLUNCH [facility] Magnesium Oxide (Magnesium Oxide) 800 mg PO BID [facility] Metolazone (Zaroxolyn) 2.5 mg PO [facility]SA [facility] Non-Formulary Medication (Bumetanide [Bumex]) 3 mg PO BID INDERJIT Non-Formulary Medication (Calcium Carb/Magnesium Hydrox [Rolaids Chewable Tablet ]) 2 tab PO Q1H PRN PRN Reason: Indigestion Non-Formulary Medication (Cholecalciferol (Vitamin D3) [Vitamin D3]) 1,000 unit PO WITHLUNCH INDERJIT Non-Formulary Medication (Fluoxetine [Prozac]) 40 mg PO BID INDERJIT Non-Formulary Medication (Guaifenesin [Guaifenesin]) 400 mg PO Q6H PRN PRN Reason: Cough Non-Formulary Medication (Hydrocortisone-Aloe 2% Gel) 1 applic TOP ASDIRECTED PRN PRN Reason: EAR Non-Formulary Medication (Insulin Glargine,Hum.Rec.Anlog [Tochristiano Solosttonny]) 96 units SQ DAILY INDERJIT Non-Formulary Medication (Magic Mouth Wash) 5 ml PO QID PRN PRN Reason: MOUTH LESIONS Non-Formulary Medication (Mupirocin Calcium [Bactroban]) 15 gm TP BID PRN PRN Reason: BOILS Pantoprazole Sodium (Protonix) 40 mg PO ACBREAKFAST INDERJIT Polyethylene Glycol (Miralax) 17 gm PO DAILY PRN PRN Reason: Constipation Potassium Chloride (Klor-Con 10) 20 meq PO BID INDERJIT Pravastatin Sodium (Pravachol) 20 mg PO BEDTIME INDERJIT Pyridoxine HCl (Vitamin B6-Pyridoxine) 100 mg PO PCLUNCH INDERJIT Senna (Senna) mg PO BEDTIME PRN PRN Reason: Constipation Sodium Chloride (Saline Flush) 10 ml FLUSH ASDIRECTED PRN PRN Reason: Keep Vein Open Spironolactone (Aldactone) mg PO BID INDERJIT Tramadol HCl (Ultram) 50 mg PO Q12H PRN PRN Reason: Pain Trazodone HCl (Trazodone) 50 mg PO BEDTIME INDERJIT Warfarin Sodium (Coumadin) 5 mg PO DAILY INDERJIT Assessment/Plan Comment:: sameer feels herself again,Her blood sugar this morning is more than 200. I've asked her to stop the mealtime insulin but continued with José until she sees Lisa Rodriguez, her PCP. No other changes were made to her medications.
[2017-11-18] MEDS ORDERED: Magnesium Oxide 400 MG Tab PO SCH ×2 (09:00→12:00)
[2017-11-18] MEDS ORDERED: Potassium Chloride 10 MEQ Tab.ER PO SCH (09:00)
[2017-11-18] MEDS ORDERED: Warfarin 5 MG Tab PO SCH (09:00)
[2017-11-18] MEDS ORDERED: Gabapentin 300 MG Cap PO SCH (09:00)
[2017-11-18] MEDS ORDERED: FLUOXETINE 40 MG PO SCH (09:00)
[2017-11-18] MEDS ORDERED: [UNRECOGNIZED DRUG - OTHER] SQ SCH (09:00)
[2017-11-18] MEDS ORDERED: Spironolactone 25 MG Tab PO SCH (09:00)
[2017-11-18] MEDS ORDERED: Budesonide 0.5 MG/2 ML Neb Susp INH SCH (09:00)
[2017-11-18] MEDS ORDERED: Ferrous Sulfate 325 MG Tab PO SCH (09:00)
[2017-11-18] MEDS ORDERED: INSULIN GLARGINE SQ SCH (09:00)
[2017-11-18] MEDS ORDERED: BUMETANIDE PO SCH (09:00)
[2017-11-18] MEDS ORDERED: buPROPion 150 MG Tab.ER PO SCH (09:00)
[2017-11-18] MEDS ORDERED: Aspirin 81 MG Tab.EC PO SCH (09:00)
[2017-11-18 09:49] VITALS: BP 159/62
--- NOTE | 2017-11-18 10:53 | DISCH ---
DISCHARGE DATE: 11/18/2017 REASON FOR ADMISSION: Hypoglycemia. DISCHARGE DIAGNOSES: 1. Hypoglycemia. 2. Chronic renal failure. 3. Secondary diagnoses of morbid obesity, type 2 diabetes, obstructive sleep apnea, chronic back pain, and hypothyroidism. BRIEF HISTORY AND HOSPITAL COURSE: A 67-year-old female who had a hypoglycemic event at midnight, treated with D50 by the emergency ambulance, and brought to the ER. She was given fluids and more D50. Blood sugar has improved. She is alert and oriented x3, and ready to go back home. She will be sent home with home health. All her medications were continued with the exception of mealtime Humalog insulin. Please note that I spent less than 30 minutes in the discharge of the patient. /[id number] MONICA/WILLIS
[2017-11-18] MEDS ORDERED: Non-Formulary Medication 1 Each (Cholecalciferol (Vitamin D3) [Vitamin D3] 1,000 UNIT) PO SCH (12:00)
[2017-11-18] MEDS ORDERED: Vitamin B6-pyridOXINE 100 MG Tab PO SCH (13:00)
[2017-11-18] MEDS ORDERED: traZODone 50 MG Tab PO SCH (21:00)
[2017-11-18] MEDS ORDERED: Pravastatin 20 MG Tab PO SCH (21:00)
[2017-11-19] MEDS ORDERED: Pantoprazole 40 MG Tab.CR PO SCH (07:30)
[2017-11-20] MEDS ORDERED: Metolazone 2.5 MG Tab PO SCH (08:35)
== END 2017-11-18 09:15 | disposition home health service (06) | DRG 638 ==
LOC: FB.ED 01:40 → FB.ICU 03:29
PROVIDERS: ADMIT Family Medicine; ATTEND Family Medicine
DX: E11.649 Type 2 diabetes mellitus with hypoglycemia without coma (principal); I13.0 Hypertensive heart and chronic kidney disease with heart failure and stage 1 through stage 4 chronic kidney disease, or unspecified chronic kidney disease; E11.9 Type 2 diabetes mellitus without complications; Z68.42 Body mass index [BMI] 45.0-49.9, adult; E11.22 Type 2 diabetes mellitus with diabetic chronic kidney disease; N18.3 Chronic kidney disease, stage 3 (moderate); I11.0 Hypertensive heart disease with heart failure; I50.9 Heart failure, unspecified; E05.00 Thyrotoxicosis with diffuse goiter without thyrotoxic crisis or storm; E88.81 Metabolic syndrome and other insulin resistance; E66.01 Morbid (severe) obesity due to excess calories; G47.33 Obstructive sleep apnea (adult) (pediatric); M54.5 Low back pain; G89.29 Other chronic pain; J44.9 Chronic obstructive pulmonary disease, unspecified; K21.9 Gastro-esophageal reflux disease without esophagitis; E03.9 Hypothyroidism, unspecified; F32.9 Major depressive disorder, single episode, unspecified; Z79.4 Long term (current) use of insulin; Z88.8 Allergy status to other drugs, medicaments and biological substances; Z79.899 Other long term (current) drug therapy; Z79.01 Long term (current) use of anticoagulants; Z79.82 Long term (current) use of aspirin; Z99.81 Dependence on supplemental oxygen; Z99.89 Dependence on other enabling machines and devices
CPT/HCPCS: 36415; 80048; 81001; 82550; 82962 ×2; 83036; 83735; 84484; 85025; 93005; 96361; 96374; 99285; A9270 ×2; G0480; J7120; 80305-QW; 82803; 83605; J3480

== ENCOUNTER 2018-01-02 09:39 | Inpatient (IN) | payer MEDICARE, MEDICAID ==
--- NOTE | 2018-01-02 10:16 | EDM.PDOC ---
ED HPI GENERAL MEDICAL PROBLEM - General Chief Complaint: Neurological Problem Stated Complaint: UNRESPONSIVE Time Seen by Provider: 01/02/18 09:39 Source of Information: Reports: Patient, EMS History Limitations: Reports: Altered Mental Status - History of Present Illness INITIAL COMMENTS - FREE TEXT/NARRATIVE: 67 y.o.w.f with multiple medical issues including IDDM, frequent falls, CHF etc , came to the ed -from the half-way [facility]- after she was found lethargic in her bed at 5 am. Pt underwent a bronchoscopy at [facility] yesterday, a bronchial CA was diagnosed. As the patient arrived here in the ed, her BS was 92 her GCS was 7. No eye opening (1), incomprehensible sounds (2), withdraws from pain (4). Pt is a DNR/DNI. one relative arrived, who confirmed the pat's wish is DNR/DNI. No trauma, pt has fibromyalgia and is on Fentanyl as per family. As per EMS, pt take Coumadin. BP 149/70 RR 18 Pulse ox 99% on RA Temp 36.9. Pulse 88. . Onset: Today Onset Date: 01/02/18 Onset Time: 05:00 Duration: Hour(s): Location: Reports: Head Quality: Reports: Other (Mental status changes) Severity: Moderate Improves with: Reports: None Worsens with: Reports: None Associated Symptoms: Reports: Other (lethargic) Back Pain Score (Numeric/FACES): 4 denies Pain Score (Numeric/FACES): 0 - Related Data Allergies Allergy/AdvReac Type Severity Reaction Status Date / Time codeine Allergy Cannot Verified 01/02/18 09:52 Remember duloxetine HCl Allergy Cannot Verified 01/02/18 09:52 [From Cymbalta] Remember formoterol [From Symbicort] Allergy Hives Verified 01/02/18 09:52 hydrocodone Allergy Cannot Verified 01/02/18 09:52 Remember Home Meds: Home Meds Albuterol/Ipratropium [DuoNeb 3.0-0.5 MG/3 ML] 3 ml IH QID 10/19/14 [History] Aspirin [Halfprin] 81 mg PO DAILY 10/19/14 [History] Budesonide [Pulmicort] 0.5 mg IH BID 10/19/14 [History] Bumetanide [Bumex] 3 mg PO BID 10/19/14 [History] FLUoxetine [PROzac] 40 mg PO BID 10/19/14 [History] Levothyroxine Sodium [Synthroid] 274 mcg PO ACBREAKFAST 10/19/14 [History] Polyethylene Glycol 3350 [MiraLAX] 17 gm PO DAILY PRN 10/19/14 [History] Acetaminophen [Tylenol Extra Strength] 1,000 mg PO Q8H PRN 10/09/16 [History] Ferrous Sulfate 325 mg PO TIDMEALS 10/09/16 [History] Magnesium Oxide 800 mg PO BIDMEALS 10/09/16 [History] Vitamin B6-pyridOXINE 100 mg PO PCLUNCH 10/09/16 [History] metOLazone [Metolazone] 2.5 mg PO TUFR 10/09/16 [History] traZODone 50 mg PO BEDTIME 10/09/16 [History] Cholecalciferol (Vitamin D3) [Vitamin D3] 1,000 unit PO WITHLUNCH 05/05/17 [ History] Magnesium Oxide 400 mg PO WITHLUNCH 05/05/17 [History] Pravastatin [Pravachol] 20 mg PO BEDTIME 05/05/17 [History] Albuterol Sulfate 2.5 mg IH Q4H PRN 05/26/17 [History] Gabapentin [Neurontin] 300 mg PO TID 05/26/17 [History] Pantoprazole [ProTONIX] 40 mg PO ACBREAKFAST 05/26/17 [History] buPROPion HCl [Wellbutrin Xl] 150 mg PO DAILY 05/26/17 [History] guaiFENesin [Guaifenesin] 400 mg PO Q6H PRN 05/26/17 [History] Insulin Detemir [Levemir] 50 units SUBCUT BID 01/02/18 [History] Insulin Lispro [Humalog] 31 units SUBCUT TIDMEALS 01/02/18 [History] Nystatin [Nystop] 1 applic TOP BID 01/02/18 [History] Potassium Chloride 20 meq PO DAILY 01/02/18 [History] Spironolactone 50 mg PO DAILY 01/02/18 [History] Past Medical History HEENT History: Reports: Impaired Vision Cardiovascular History: Reports: Heart Failure, Hypertension Respiratory History: Reports: COPD, Other (See Below) Other Respiratory History: Is on 2L/NC @ home all time. Has CPAP. 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: Musculoskeletal History: Reports: Back Pain, Chronic, Fracture, Fibromyalgia Other Musculoskeletal History: hx L wrist fx Psychiatric History: Reports: Depression Endocrine/Metabolic History: Reports: Diabetes, Type II, Hypothyroidism, Obesity /BMI 30+ Other Endocrine/Metabolic History: GRAVES DISEASE Hematologic History: Reports: Anemia Dermatologic History: Reports: Other (See Below) Other Dermatologic History: occ rash - Infectious Disease History Infectious Disease History: Reports: Chicken Pox, Measles, Mumps - Past Surgical History HEENT Surgical History: Reports: Tonsillectomy, Other (See Below) GI Surgical History: Reports: Appendectomy, Cholecystectomy Social & Family History - Family History Family Medical History: Noncontributory Cardiac: Reports: Hypertension : Reports: Cystic Kidney Disease Endocrine/Metabolic: Reports: Diabetes, type II - Caffeine Use Caffeine Use: Reports: None ED ROS GENERAL - Review of Systems Review Of Systems: Unable To Obtain (Mental status changes) ED EXAM, NEURO - Physical Exam Exam: See Below Exam Limited By: Altered Mental Status General Appearance: Lethargic, Obtunded, Obese (morbid) Eye Exam: Bilateral Eye: Normal Fundi, Normal Inspection Ears: Normal External Exam Nose: Normal Inspection Throat/Mouth: Normal Inspection, Normal Lips Head Exam: Atraumatic, Normocephalic Neck: Normal Inspection, Supple, Non-Tender, Full Range of Motion Respiratory/Chest: No Respiratory Distress, Lungs Clear, Normal Breath Sounds ( poor inspt effort) Cardiovascular: Normal Peripheral Pulses, Regular Rate, Rhythm, No Edema GI/Abdominal: Normal Bowel Sounds, Distended (Female) Exam: Deferred Rectal (Female) Exam: Deferred Neurological: Withdraws to Pain Back Exam: Normal Inspection Extremities: Normal Inspection Psychiatric: Other (lethargic) Skin Exam: Warm, Dry, Intact, Pallor EKG INTERPRETATION EKG Date: 01/02/18 Time: 10:20 Rhythm: NSR Rate (Beats/Min): 69 [place]: Normal P-Wave: Present QRS: Normal ST-T: Normal QT: Normal Comparison: NA - No Prior EKG Course - Vital Signs Text/Narrative:: 67 y.o.w.f with multiple medical issues including IDDM, frequent falls, CHF etc , came to the ed -from the half-way [facility]- after she was found lethargic in her bed at 5 am. Pt underwent a bronchoscopy at [facility] yesterday, a bronchial CA was diagnosed. As the patient arrived here in the ed, her BS was 92 her GCS was 7. No eye opening (1), incomprehensible sounds (2), withdraws from pain (4). Pt is a DNR/DNI. one relative arrived, who confirmed the pat's wish is DNR/DNI. No trauma, pt has fibromyalgia and is on Fentanyl as per family. As per EMS, pt take Coumadin. BP 149/70 RR 18 Pulse ox 99% on RA Temp 36.9. Pulse 88. PE: Obtunded 67 y.o.w.f, GCS 7 DNR/DNI Imaging: CT head: NAD as per RAD Labs: WBC 9.2 HGB 10.9 HCT 32.3 Plts 144 INR 1.36 Na 142 K 4.2 BUN 24 Cr. 1,6 GFR 32 Glc 83 Lactic acid 1.8 Impression: CVA vs TIA, bronchial CA, morbid obesity DNR/DNI Tx: NS, kepped in lateral stable position 10.51 am Consultation: Dr. Reno Griffith, Neurology, [facility]: Pt is DNR/ DNI, [facility] can not offer more for this patient then we do here at [facility] 11.10 am Consultation: Dr. Elias accepted the pt for admission Reexam: Pupils were still reactive to light, pt's GCS was 7 as it was initially. Plan: Admit to [facility] Last Recorded V/S: Last Vital Signs Temp 36.8 C 01/03/18 16:00 Pulse 75 01/03/18 16:00 Resp 20 01/03/18 16:00 BP 120/45 L 01/03/18 16:00 Pulse Ox 96 01/03/18 16:00 - Orders/Labs/Meds Orders: Medication Orders Acetaminophen (Tylenol Extra Strength) 1,000 mg PO Q8H PRN PRN Reason: Pain Last Admin: 01/03/18 10:25 Dose: 1,000 mg Albuterol (Proventil Neb Soln) 2.5 mg INH Q4H PRN PRN Reason: BREATHING Albuterol/Ipratropium (Duoneb 3.0-0.5 Mg/3 Ml) 3 ml INH QIDRT [facility] Last Admin: 01/03/18 15:57 Dose: 3 ml Admin: 01/03/18 12:35 Dose: 3 ml Admin: 01/03/18 09:34 Dose: 3 ml Aspirin (Halfprin) 81 mg PO DAILY [facility] Last Admin: 01/03/18 10:18 Dose: 81 mg Budesonide (Pulmicort) 0.5 mg INH BIDRT [facility] Last Admin: 01/03/18 10:20 Dose: 0.5 mg Bumetanide (Bumex) 3 mg PO BIDDIURETIC [facility] Last Admin: 01/03/18 14:12 Dose: 3 mg Admin: 01/03/18 10:19 Dose: 3 mg Bupropion HCl (Wellbutrin Xl) 150 mg PO DAILY [facility] Last Admin: 01/03/18 10:18 Dose: 150 mg Cholecalciferol (Vitamin D3) 1,000 units PO WITHLUNCH [facility] Last Admin: 01/03/18 12:57 Dose: 1,000 units Enoxaparin Sodium (Lovenox) 40 mg SUBCUT DAILY [facility] Last Admin: 01/03/18 10:20 Dose: 40 mg Ferrous Sulfate (Ferrous Sulfate) 325 mg PO TIDMEALS [facility] Last Admin: 01/03/18 17:14 Dose: 325 mg Admin: 01/03/18 12:57 Dose: 325 mg Fluoxetine HCl (Prozac) 40 mg PO BID [facility] Last Admin: 01/03/18 10:19 Dose: 40 mg Gabapentin (Neurontin) 300 mg PO TID [facility] Last Admin: 01/03/18 14:12 Dose: 300 mg Admin: 01/03/18 10:18 Dose: 300 mg Guaifenesin (Organ-I Nr) 400 mg PO Q6H PRN PRN Reason: MUCOUS Ibuprofen (Motrin) 400 mg PO Q6H PRN PRN Reason: Pain Last Admin: 01/03/18 15:57 Dose: 400 mg Insulin Glargine (Lantus Solostar) 50 units SUBCUT BID [facility] Last Admin: 01/03/18 10:25 Dose: 50 units Insulin Human Lispro (Humalog) 31 unit SUBCUT TIDMEALS [facility] Last Admin: 01/03/18 13:01 Dose: 31 units Levothyroxine Sodium (Levothyroxine) 200 mcg PO DAILY@0600 [facility] Last Admin: 01/03/18 10:18 Dose: 200 mcg Levothyroxine Sodium (Levothyroxine) 75 mcg PO DAILY@0600 [facility] Last Admin: 01/03/18 10:18 Dose: 75 mcg Magnesium Oxide (Magnesium Oxide) 400 mg PO WITHLUNCH [facility] Last Admin: 01/03/18 12:57 Dose: 400 mg Magnesium Oxide (Magnesium Oxide) 800 mg PO BIDMEALS [facility] Last Admin: 01/03/18 17:14 Dose: 800 mg Metolazone (Zaroxolyn) 2.5 mg PO TuFr@0800 [facility] Nystatin (Nystop) 0 gm TOP BID [facility] Last Admin: 01/03/18 10:20 Dose: 1 applic Pantoprazole Sodium (Protonix) 40 mg PO DAILY@0600 [facility] Last Admin: 01/03/18 10:19 Dose: 40 mg Polyethylene Glycol (Miralax) 17 gm PO DAILY PRN PRN Reason: Constipation Potassium Chloride (Klor-Con M20) 20 meq PO DAILY [facility] Last Admin: 01/03/18 10:19 Dose: 20 meq Pravastatin Sodium (Pravachol) 20 mg PO BEDTIME [facility] Pyridoxine HCl (Vitamin B6-Pyridoxine) 100 mg PO PCLUNCH [facility] Last Admin: 01/03/18 12:57 Dose: 100 mg Sodium Chloride (Saline Flush) 10 ml FLUSH ASDIRECTED PRN PRN Reason: Keep Vein Open Last Admin: 01/02/18 14:31 Dose: 10 ml Admin: 01/02/18 10:30 Dose: 10 ml Spironolactone (Aldactone) 50 mg PO DAILY [facility] Last Admin: 01/03/18 10:18 Dose: 50 mg Trazodone HCl (Trazodone) 50 mg PO BEDTIME [facility] Labs: Laboratory Tests 01/02/18 01/02/18 01/02/18 Range/Units 10:04 10:20 10:20 WBC 9.2 (4.5-12.0) X10-3/uL RBC 3.42 (3.23-5.20) x10(6)uL Hgb 10.9 L (11.5-15.5) g/dL Hct 32.1 (30.0-51.3) % MCV 93.7 (80-96) fL MCH 31.8 (27.7-33.6) pg MCHC 34.0 (32.2-35.4) g/dL RDW 16.7 H (11.5-15.5) % Plt Count 144 (125-369) X10(3)uL MPV 8.9 (7.4-10.4) fL Neut % (Auto) 73.9 (46-82) % Lymph % (Auto) 13.9 (13-37) % [place] % (Auto) 9.4 (4-12) % Eos % (Auto) 2 (1.0-5.0) % Baso % (Auto) 1 (0-2) % Neut # (Auto) 6.6 (1.6-8.3) # Lymph # (Auto) 1.3 (0.6-5.0) # Starke # (Auto) 0.9 (0.0-1.3) # Eos # (Auto) 0.2 (0.0-0.8) # Baso # (Auto) 0.1 (0.0-0.2) # PT 13.2 H (8.7-11.1) INR 1.36 H (0.89-1.13) Sodium (135-145) mmol/L Potassium (3.5-5.3) mmol/L Chloride (100-110) mmol/L Carbon Dioxide (21-32) mmol/L BUN (7-18) mg/dL Creatinine (0.55-1.02) mg/dL Est Cr Clr Drug Dosing mL/min Estimated GFR (MDRD) (>60) BUN/Creatinine Ratio (9-20) Glucose (80-116) mg/dL POC Glucose 86 D (80-116) mg/dL Lactic Acid (0.4-2.2) mmol/L Calcium (8.6-10.2) mg/dL Troponin I (<0.017-0.056) ng/mL NT-Pro-B Natriuret Pep (<=125) pg/mL Urine Color (YELLOW) Urine Appearance (CLEAR) Urine pH (5.0-6.5) Ur Specific [place] (1.010-1.025) Urine Protein (NEGATIVE) mg/dL Urine Glucose (UA) (NEGATIVE) mg/dL Urine Ketones (NEGATIVE) mg/dL Urine Occult Blood (NEGATIVE) Urine Nitrite (NEGATIVE) Urine Bilirubin (NEGATIVE) Urine Urobilinogen (NEGATIVE) mg/dL Ur Leukocyte Esterase (NEGATIVE) Urine RBC (0) Urine WBC (0) Ur Squamous Epith Cells (NS,R,O) Urine Bacteria (NS) 01/02/18 01/02/18 01/02/18 Range/Units 10:20 10:20 10:20 WBC (4.5-12.0) X10-3/uL RBC (3.23-5.20) x10(6)uL Hgb (11.5-15.5) g/dL Hct (30.0-51.3) % MCV (80-96) fL MCH (27.7-33.6) pg MCHC (32.2-35.4) g/dL RDW (11.5-15.5) % Plt Count (125-369) X10(3)uL MPV (7.4-10.4) fL Neut % (Auto) (46-82) % Lymph % (Auto) (13-37) % [place] % (Auto) (4-12) % Eos % (Auto) (1.0-5.0) % Baso % (Auto) (0-2) % Neut # (Auto) (1.6-8.3) # Lymph # (Auto) (0.6-5.0) # Starke # (Auto) (0.0-1.3) # Eos # (Auto) (0.0-0.8) # Baso # (Auto) (0.0-0.2) # PT (8.7-11.1) INR (0.89-1.13) Sodium 142 (135-145) mmol/L Potassium 4.2 (3.5-5.3) mmol/L Chloride 107 D (100-110) mmol/L Carbon Dioxide 27 (21-32) mmol/L BUN 24 H (7-18) mg/dL Creatinine 1.6 H (0.55-1.02) mg/dL Est Cr Clr Drug Dosing 34.09 mL/min Estimated GFR (MDRD) 32 L (>60) BUN/Creatinine Ratio 15.0 (9-20) Glucose 93 D (80-116) mg/dL POC Glucose (80-116) mg/dL Lactic Acid 1.8 (0.4-2.2) mmol/L Calcium 8.6 (8.6-10.2) mg/dL Troponin I < 0.017 L (<0.017-0.056) ng/mL NT-Pro-B Natriuret Pep (<=125) pg/mL Urine Color (YELLOW) Urine Appearance (CLEAR) Urine pH (5.0-6.5) Ur Specific [place] (1.010-1.025) Urine Protein (NEGATIVE) mg/dL Urine Glucose (UA) (NEGATIVE) mg/dL Urine Ketones (NEGATIVE) mg/dL Urine Occult Blood (NEGATIVE) Urine Nitrite (NEGATIVE) Urine Bilirubin (NEGATIVE) Urine Urobilinogen (NEGATIVE) mg/dL Ur Leukocyte Esterase (NEGATIVE) Urine RBC (0) Urine WBC (0) Ur Squamous Epith Cells (NS,R,O) Urine Bacteria (NS) 01/02/18 01/02/18 Range/Units 10:20 11:15 WBC (4.5-12.0) X10-3/uL RBC (3.23-5.20) x10(6)uL Hgb (11.5-15.5) g/dL Hct (30.0-51.3) % MCV (80-96) fL MCH (27.7-33.6) pg MCHC (32.2-35.4) g/dL RDW (11.5-15.5) % Plt Count (125-369) X10(3)uL MPV (7.4-10.4) fL Neut % (Auto) (46-82) % Lymph % (Auto) (13-37) % [place] % (Auto) (4-12) % Eos % (Auto) (1.0-5.0) % Baso % (Auto) (0-2) % Neut # (Auto) (1.6-8.3) # Lymph # (Auto) (0.6-5.0) # [place] # (Auto) (0.0-1.3) # Eos # (Auto) (0.0-0.8) # Baso # (Auto) (0.0-0.2) # PT (8.7-11.1) INR (0.89-1.13) Sodium (135-145) mmol/L Potassium (3.5-5.3) mmol/L Chloride (100-110) mmol/L Carbon Dioxide (21-32) mmol/L BUN (7-18) mg/dL Creatinine (0.55-1.02) mg/dL Est Cr Clr Drug Dosing mL/min Estimated GFR (MDRD) (>60) BUN/Creatinine Ratio (9-20) Glucose (80-116) mg/dL POC Glucose (80-116) mg/dL Lactic Acid (0.4-2.2) mmol/L Calcium (8.6-10.2) mg/dL Troponin I (<0.017-0.056) ng/mL NT-Pro-B Natriuret Pep 3667 H* (<=125) pg/mL Urine Color Yellow (YELLOW) Urine Appearance Clear (CLEAR) Urine pH 7.0 H (5.0-6.5) Ur Specific [place] 1.010 (1.010-1.025) Urine Protein Negative (NEGATIVE) mg/dL Urine Glucose (UA) Normal (NEGATIVE) mg/dL Urine Ketones Negative (NEGATIVE) mg/dL Urine Occult Blood Moderate H (NEGATIVE) Urine Nitrite Negative (NEGATIVE) Urine Bilirubin Negative (NEGATIVE) Urine Urobilinogen Normal (NEGATIVE) mg/dL Ur Leukocyte Esterase Negative (NEGATIVE) Urine RBC 0-5 (0) Urine WBC 0-5 (0) Ur Squamous Epith Cells Occasional (NS,R,O) Urine Bacteria Few H (NS) Meds: Medications Generic Name Dose Route Start Last Admin Trade Name Romq PRN Reason Stop Dose Admin Acetaminophen 1,000 mg 01/03/18 08:34 01/03/18 10:25 Tylenol Extra Strength PO 1,000 mg Q8H PRN Administration Pain Albuterol 2.5 mg 01/03/18 08:34 Proventil Neb Soln INH Q4H PRN BREATHING Albuterol/Ipratropium 3 ml 01/03/18 09:00 01/03/18 15:57 Duoneb 3.0-0.5 Mg/3 Ml INH 3 ml QIDRT [facility] Administration Aspirin 81 mg 01/03/18 09:00 01/03/18 10:18 Halfprin PO 81 mg DAILY [facility] Administration Budesonide 0.5 mg 01/03/18 09:00 01/03/18 10:20 Pulmicort INH 0.5 mg BIDRT [facility] Administration Bumetanide 3 mg 01/03/18 09:00 01/03/18 14:12 Bumex PO 3 mg BIDDIURETIC [facility] Administration Bupropion HCl 150 mg 01/03/18 09:00 01/03/18 10:18 Wellbutrin Xl PO 150 mg DAILY [facility] Administration Cholecalciferol 1,000 units 01/03/18 12:00 01/03/18 12:57 Vitamin D3 PO 1,000 units WITHLUNCH [facility] Administration Enoxaparin Sodium 40 mg 01/03/18 09:00 01/03/18 10:20 Lovenox SUBCUT 40 mg DAILY [facility] Administration Ferrous Sulfate 325 mg 01/03/18 12:00 01/03/18 17:14 Ferrous Sulfate PO 325 mg TIDMEALS [facility] Administration Fluoxetine HCl 40 mg 01/03/18 09:00 01/03/18 10:19 Prozac PO 40 mg BID [facility] Administration Gabapentin 300 mg 01/03/18 09:00 01/03/18 14:12 Neurontin PO 300 mg TID [facility] Administration Guaifenesin 400 mg 01/03/18 09:00 Organ-I Nr PO Q6H PRN MUCOUS Ibuprofen 400 mg 01/03/18 14:35 01/03/18 15:57 Motrin PO 400 mg Q6H PRN Administration Pain Insulin Glargine 50 units 01/03/18 09:15 01/03/18 10:25 Lantus Solostar SUBCUT 50 units BID [facility] Administration Insulin Human Lispro 31 unit 01/03/18 12:00 01/03/18 13:01 Humalog SUBCUT 31 units TIDMEALS [facility] Administration Levothyroxine Sodium 200 mcg 01/03/18 09:00 01/03/18 10:18 Levothyroxine PO 200 mcg DAILY@0600 [facility] Administration Levothyroxine Sodium 75 mcg 01/03/18 09:00 01/03/18 10:18 Levothyroxine PO 75 mcg DAILY@0600 [facility] Administration Magnesium Oxide 400 mg 01/03/18 12:00 01/03/18 12:57 Magnesium Oxide PO 400 mg WITHLUNCH [facility] Administration Magnesium Oxide 800 mg 01/03/18 18:00 01/03/18 17:14 Magnesium Oxide PO 800 mg BIDMEALS [facility] Administration Metolazone 2.5 mg 01/06/18 08:00 Zaroxolyn PO TuFr@0800 [facility] Nystatin 0 gm 01/03/18 09:00 01/03/18 10:20 Nystop TOP 1 applic BID [facility] Administration Pantoprazole Sodium 40 mg 01/03/18 09:00 01/03/18 10:19 Protonix PO 40 mg DAILY@0600 [facility] Administration Polyethylene Glycol 17 gm 01/03/18 08:34 Miralax PO DAILY PRN Constipation Potassium Chloride 20 meq 01/03/18 09:15 01/03/18 10:19 Klor-Con M20 PO 20 meq DAILY [facility] Administration Pravastatin Sodium 20 mg 01/03/18 21:00 Pravachol PO BEDTIME [facility] Pyridoxine HCl 100 mg 01/03/18 13:00 01/03/18 12:57 Vitamin B6-Pyridoxine PO 100 mg PCLUNCH [facility] Administration Sodium Chloride 10 ml 01/02/18 11:19 01/02/18 14:31 Saline Flush FLUSH 10 ml ASDIRECTED PRN Administration Keep Vein Open Spironolactone 50 mg 01/03/18 09:00 01/03/18 10:18 Aldactone PO 50 mg DAILY [facility] Administration Trazodone HCl 50 mg 01/03/18 21:00 Trazodone PO BEDTIME [facility] Discontinued Medications Generic Name Dose Route Start Last Admin Trade Name Freq PRN Reason Stop Dose Admin Ceftriaxone Sodium 1,000 mg 01/02/18 18:00 01/02/18 19:33 Rocephin IVPUSH 1,000 mg Q24H [facility] Administration Sodium Chloride 1,000 mls @ 125 mls/hr 01/02/18 14:30 01/03/18 07:14 Normal Saline IV 125 mls/hr ASDIRECTED [facility] Administration Ceftriaxone Sodium 1,000 mg/ 50 mls @ 100 mls/hr 01/02/18 18:00 01/02/18 19: 55 Sodium Chloride IV Not Given Q24H [facility] Lorazepam 0.25 mg 01/02/18 14:17 01/02/18 14:32 Ativan IVPUSH 01/02/18 14:18 0.25 mg ONETIME ONE Administration Departure - Departure Time of Disposition: 12:10 Disposition: Admitted As Inpatient 68 Condition: Critical Clinical Impression: DNR (do not resuscitate) CVA (cerebral vascular accident) Qualifiers: CVA mechanism: unspecified Qualified Code(s): I63.9 - Cerebral infarction, unspecified - Discharge Information
[2018-01-02] MEDS: Sodium Chloride 0.9% 10 ML Syringe FLUSH PRN ×2 (10:30→14:31)
--- NOTE | 2018-01-02 11:35 | CR ---
INDICATION: Lung CA. CHEST: Two AP upright views of the chest were obtained 01/02/2018 and compared with 07/13/2012 and 08/18/2011. The heart is enlarged. Pulmonary vasculature is prominent in the upper lung jugn. Interstitial markings are prominent. There does appear to be some alveolar infiltration. Findings may be on the basis of CHF with interstitial and acute pulmonary edema - alveolar lung edema. Otherwise, the infiltrates could be on the basis of aspiration pneumonia or other cause of pneumonia. Linear atelectatic changes may also be present in the right mid lung field. An additional possibility in this patient with history of lung CA is interstitial - lymphatic spread of metastatic disease. There is again evidence of exogenous obesity. There are some areas of somewhat nodular change in the right upper middle and lower middle lung field and lower lung field on the left, which could also represent pneumonia and/or metastatic nodularity. Report was given by phone to Dr. Mercedes at approximately 1100 hours on 2017. [facility]
--- NOTE | 2018-01-02 13:39 | CT ---
INDICATION: Unresponsive. CT HEAD WITHOUT CONTRAST: Serial contiguous 2.5 and 5 mm sections were obtained through the brain without contrast, 01/02/2018, and repeated two times due to motion. Findings were compared with 10/09/2016. Total exam DLP = 2,850.94 mGy-cm. There is noted thickening of the linings of the sphenoidal air cells, left greater than right. A retention cyst is again noted of moderate size in the right maxillary antrum. Paranasal sinuses were otherwise unremarkable. Mastoid air cells appear to be fairly well-aerated. No definite cranial abnormality was seen. No shift of midline structures was noted. The ventricles are slightly prominent, as previously - appear stable compared with 2017. The examination is limited due to patient motion, despite multiple retries; however, no definite abnormal areas of density were identified - no bleeding site or hematoma was seen. No finding to strongly suggest an acute intracranial abnormality was seen. IMPRESSION: 1. Study limited by motion; however, no definite intracranial abnormality of any acute nature could be identified. There are calcifications in the internal carotid arteries, compatible with cerebrovascular disease and perhaps some mild progressive white matter changes compatible with microvascular disease, mostly in the frontoparietal area. No acute intracranial abnormality was suggested. 2. Thickening of the linings of the sphenoidal air cells, left greater than right, which was present previously, with retention cyst in the right maxillary antrum also noted. Report was given in part to Dr. Mercedes at 1100 hours on 01/02/2018. [facility]
[2018-01-02] MEDS ORDERED: LORazepam 2 MG/ML SDV IVPUSH ONE (14:17)
[2018-01-02] MEDS: Sodium Chloride 0.9% 1,000 ML IV SCH ×2 (14:47→22:59)
[2018-01-02] MEDS ORDERED: cefTRIAXone 1,000 MG VIAL IVPUSH SCH (18:00)
[2018-01-02] MEDS ORDERED: cefTRIAXone 1,000 MG in Sodium Chloride 0.9% 50 ML IV SCH (18:00)
--- NOTE | 2018-01-02 18:07 | PCM.HP ---
H&P History of Present Illness - General Date of Service: 01/02/18 Admit Problem/Dx: Admission Diagnosis/Problem Admission Diagnosis/Problem Mental status, decreased Source of Information: Other (ER doctor, niece and RN home health that used to take care of her.) History Limitations: Reports: Altered Mental Status - History of Present Illness Initial Comments - Free Text/Narative: This is 67-year-old female patient that was in [place] yesterday and had a bronchoscopy was diagnosed with lung cancer. She was sent back to [facility] where she's been doing rehabilitation. And this morning she was found lethargic and only responsive to pain. She been seen in [place] for possible stroke symptoms and they ruled out center to [facility] for rehabilitation. She was at home before that. She was sent to the ER they evaluated her the CT scan was negative patient all her labs were negative. [facility] neurology was called and they said there is nothing [place] that they would do that we can do and they recommended admitting her hair. So admit her today. I cannot get a history from her. - Related Data Allergies/Adverse Reactions: Allergies Allergy/AdvReac Type Severity Reaction Status Date / Time codeine Allergy Cannot Verified 01/02/18 09:52 Remember duloxetine HCl Allergy Cannot Verified 01/02/18 09:52 [From Cymbalta] Remember formoterol [From Symbicort] Allergy Hives Verified 01/02/18 09:52 hydrocodone Allergy Cannot Verified 01/02/18 09:52 Remember Home Medications: Home Meds Albuterol/Ipratropium [DuoNeb 3.0-0.5 MG/3 ML] 3 ml IH QID 10/19/14 [History] Aspirin [Halfprin] 81 mg PO DAILY 10/19/14 [History] Budesonide [Pulmicort] 0.5 mg IH BID 10/19/14 [History] Bumetanide [Bumex] 3 mg PO BID 10/19/14 [History] FLUoxetine [PROzac] 40 mg PO BID 10/19/14 [History] Levothyroxine Sodium [Synthroid] 274 mcg PO ACBREAKFAST 10/19/14 [History] Polyethylene Glycol 3350 [MiraLAX] 17 gm PO DAILY PRN 10/19/14 [History] Acetaminophen [Tylenol Extra Strength] 1,000 mg PO Q8H PRN 10/09/16 [History] Ferrous Sulfate 325 mg PO TIDMEALS 10/09/16 [History] Magnesium Oxide 800 mg PO BIDMEALS 10/09/16 [History] Vitamin B6-pyridOXINE 100 mg PO PCLUNCH 10/09/16 [History] metOLazone [Metolazone] 2.5 mg PO TUFR 10/09/16 [History] traZODone 50 mg PO BEDTIME 10/09/16 [History] Cholecalciferol (Vitamin D3) [Vitamin D3] 1,000 unit PO WITHLUNCH 05/05/17 [ History] Magnesium Oxide 400 mg PO WITHLUNCH 05/05/17 [History] Pravastatin [Pravachol] 20 mg PO BEDTIME 05/05/17 [History] Albuterol Sulfate 2.5 mg IH Q4H PRN 05/26/17 [History] Gabapentin [Neurontin] 300 mg PO TID 05/26/17 [History] Pantoprazole [ProTONIX] 40 mg PO ACBREAKFAST 05/26/17 [History] buPROPion HCl [Wellbutrin Xl] 150 mg PO DAILY 05/26/17 [History] guaiFENesin [Guaifenesin] 400 mg PO Q6H PRN 05/26/17 [History] Insulin Detemir [Levemir] 50 units SUBCUT BID 01/02/18 [History] Insulin Lispro [Humalog] 31 units SUBCUT TIDMEALS 01/02/18 [History] Nystatin [Nystop] 1 applic TOP BID 01/02/18 [History] Potassium Chloride 20 meq PO DAILY 01/02/18 [History] Spironolactone 50 mg PO DAILY 01/02/18 [History] Past Medical History HEENT History: Reports: Impaired Vision Other HEENT History: pregalucoma-unspecified. Cardiovascular History: Reports: Heart Failure, Hypertension Other Cardiovascular History: Peripheral vascular disease. Respiratory History: Reports: COPD, Other (See Below) Other Respiratory History: Is on 2L/NC @ home all time. Has CPAP. Gastrointestinal History: Reports: GERD Genitourinary History: Reports: None, Chronic Renal Insuffiency SHIP PURSER History: Reports: Musculoskeletal History: Reports: Back Pain, Chronic, Fracture, Fibromyalgia Other Musculoskeletal History: hx L wrist fx Neurological History: Reports: Other (See Below) Other Neuro History: hx of ecephalopathy. Psychiatric History: Reports: Depression Endocrine/Metabolic History: Reports: Diabetes, Type II, Hypothyroidism, Obesity /BMI 30+ Other Endocrine/Metabolic History: GRAVES DISEASE Hematologic History: Reports: Anemia Oncologic (Cancer) History: Reports: Lung Other Oncologic History: Had bronchoscopy 01/01/18, was dx with metastatic lung CA. Dermatologic History: Reports: Other (See Below) Other Dermatologic History: occ rash - Infectious Disease History Infectious Disease History: Reports: Chicken Pox, Measles, Mumps Other Infectious Disease History: has warts in her vulva. - Past Surgical History HEENT Surgical History: Reports: Tonsillectomy, Other (See Below) GI Surgical History: Reports: Appendectomy, Cholecystectomy Social & Family History - Family History Family Medical History: Noncontributory Cardiac: Reports: Hypertension : Reports: Cystic Kidney Disease Endocrine/Metabolic: Reports: Diabetes, type II - Tobacco Use Smoking Status *Q: Former Smoker Years of Tobacco use: 35 Used Tobacco, but Quit: Yes Month/Year Tobacco Last Used: 10 years ago. Second Hand Smoke Exposure: No - Caffeine Use Caffeine Use: Reports: None - Recreational Drug Use Recreational Drug Use: No H&P Review of Systems - Review of Systems: Review Of Systems: Unable To Obtain Exam - Exam Exam: See Below - Vital Signs Vital Signs: Last Vital Signs Temp 98.5 F 01/02/18 16:00 Pulse 72 01/02/18 16:00 Resp 20 01/02/18 16:00 BP 123/46 L 01/02/18 16:00 Pulse Ox 96 01/02/18 16:00 Weight: 261 lb 9 oz - Exam General: Other (She opens her eyes but does not respond. She responds to pain.) . No: Alert, Oriented, Sedated HEENT: Posterior Pharynx Clear, TMs Clear Neck: Supple, Trachea Midline Lungs: Clear to Auscultation, Normal Respiratory Effort. No: Crackles, Rales, Rhonchi Cardiovascular: Regular Rate, Regular Rhythm. No: Systolic Murmur, Diastolic Murmur GI/Abdominal Exam: Normal Bowel Sounds, Soft, Non-Tender, No Organomegaly. No: No Distention, No Abnormal Bruit, No Mass Back Exam: Normal Inspection, Full Range of Motion Extremities: Normal Range of Motion, Non-Tender, No Pedal Edema Skin: Warm, Dry, Intact, Other (Brownish skin leg secondary to chronic edema) Neuro Extensive - Mental Status: Other (Moans to pain) Psychiatric: Other (Unable to assess) - Patient Data Lab Results Last 24 hrs: Laboratory Results - last 24 hr 01/02/18 01/02/18 01/02/18 Range/Units 10:04 10:20 10:20 WBC 9.2 (4.5-12.0) X10-3/uL RBC 3.42 (3.23-5.20) x10(6)uL Hgb 10.9 L (11.5-15.5) g/dL Hct 32.1 (30.0-51.3) % MCV 93.7 (80-96) fL MCH 31.8 (27.7-33.6) pg MCHC 34.0 (32.2-35.4) g/dL RDW 16.7 H (11.5-15.5) % Plt Count 144 (125-369) X10(3)uL MPV 8.9 (7.4-10.4) fL Neut % (Auto) 73.9 (46-82) % Lymph % (Auto) 13.9 (13-37) % [place] % (Auto) 9.4 (4-12) % Eos % (Auto) 2 (1.0-5.0) % Baso % (Auto) 1 (0-2) % Neut # (Auto) 6.6 (1.6-8.3) # Lymph # (Auto) 1.3 (0.6-5.0) # [place] # (Auto) 0.9 (0.0-1.3) # Eos # (Auto) 0.2 (0.0-0.8) # Baso # (Auto) 0.1 (0.0-0.2) # PT 13.2 H (8.7-11.1) INR 1.36 H (0.89-1.13) Sodium (135-145) mmol/L Potassium (3.5-5.3) mmol/L Chloride (100-110) mmol/L Carbon Dioxide (21-32) mmol/L BUN (7-18) mg/dL Creatinine (0.55-1.02) mg/dL Est Cr Clr Drug Dosing mL/min Estimated GFR (MDRD) (>60) BUN/Creatinine Ratio (9-20) Glucose (80-116) mg/dL POC Glucose 86 D (80-116) mg/dL Lactic Acid (0.4-2.2) mmol/L Calcium (8.6-10.2) mg/dL Troponin I (<0.017-0.056) ng/mL NT-Pro-B Natriuret Pep (<=125) pg/mL Urine Color (YELLOW) Urine Appearance (CLEAR) Urine pH (5.0-6.5) Ur Specific [place] (1.010-1.025) Urine Protein (NEGATIVE) mg/dL Urine Glucose (UA) (NEGATIVE) mg/dL Urine Ketones (NEGATIVE) mg/dL Urine Occult Blood (NEGATIVE) Urine Nitrite (NEGATIVE) Urine Bilirubin (NEGATIVE) Urine Urobilinogen (NEGATIVE) mg/dL Ur Leukocyte Esterase (NEGATIVE) Urine RBC (0) Urine WBC (0) Ur Squamous Epith Cells (NS,R,O) Urine Bacteria (NS) 01/02/18 01/02/18 01/02/18 Range/Units 10:20 10:20 10:20 WBC (4.5-12.0) X10-3/uL RBC (3.23-5.20) x10(6)uL Hgb (11.5-15.5) g/dL Hct (30.0-51.3) % MCV (80-96) fL MCH (27.7-33.6) pg MCHC (32.2-35.4) g/dL RDW (11.5-15.5) % Plt Count (125-369) X10(3)uL MPV (7.4-10.4) fL Neut % (Auto) (46-82) % Lymph % (Auto) (13-37) % [place] % (Auto) (4-12) % Eos % (Auto) (1.0-5.0) % Baso % (Auto) (0-2) % Neut # (Auto) (1.6-8.3) # Lymph # (Auto) (0.6-5.0) # [place] # (Auto) (0.0-1.3) # Eos # (Auto) (0.0-0.8) # Baso # (Auto) (0.0-0.2) # PT (8.7-11.1) INR (0.89-1.13) Sodium 142 (135-145) mmol/L Potassium 4.2 (3.5-5.3) mmol/L Chloride 107 D (100-110) mmol/L Carbon Dioxide 27 (21-32) mmol/L BUN 24 H (7-18) mg/dL Creatinine 1.6 H (0.55-1.02) mg/dL Est Cr Clr Drug Dosing 34.09 mL/min Estimated GFR (MDRD) 32 L (>60) BUN/Creatinine Ratio 15.0 (9-20) Glucose 93 D (80-116) mg/dL POC Glucose (80-116) mg/dL Lactic Acid 1.8 (0.4-2.2) mmol/L Calcium 8.6 (8.6-10.2) mg/dL Troponin I < 0.017 L (<0.017-0.056) ng/mL NT-Pro-B Natriuret Pep (<=125) pg/mL Urine Color (YELLOW) Urine Appearance (CLEAR) Urine pH (5.0-6.5) Ur Specific [place] (1.010-1.025) Urine Protein (NEGATIVE) mg/dL Urine Glucose (UA) (NEGATIVE) mg/dL Urine Ketones (NEGATIVE) mg/dL Urine Occult Blood (NEGATIVE) Urine Nitrite (NEGATIVE) Urine Bilirubin (NEGATIVE) Urine Urobilinogen (NEGATIVE) mg/dL Ur Leukocyte Esterase (NEGATIVE) Urine RBC (0) Urine WBC (0) Ur Squamous Epith Cells (NS,R,O) Urine Bacteria (NS) 01/02/18 01/02/18 Range/Units 10:20 11:15 WBC (4.5-12.0) X10-3/uL RBC (3.23-5.20) x10(6)uL Hgb (11.5-15.5) g/dL Hct (30.0-51.3) % MCV (80-96) fL MCH (27.7-33.6) pg MCHC (32.2-35.4) g/dL RDW (11.5-15.5) % Plt Count (125-369) X10(3)uL MPV (7.4-10.4) fL Neut % (Auto) (46-82) % Lymph % (Auto) (13-37) % [place] % (Auto) (4-12) % Eos % (Auto) (1.0-5.0) % Baso % (Auto) (0-2) % Neut # (Auto) (1.6-8.3) # Lymph # (Auto) (0.6-5.0) # [place] # (Auto) (0.0-1.3) # Eos # (Auto) (0.0-0.8) # Baso # (Auto) (0.0-0.2) # PT (8.7-11.1) INR (0.89-1.13) Sodium (135-145) mmol/L Potassium (3.5-5.3) mmol/L Chloride (100-110) mmol/L Carbon Dioxide (21-32) mmol/L BUN (7-18) mg/dL Creatinine (0.55-1.02) mg/dL Est Cr Clr Drug Dosing mL/min Estimated GFR (MDRD) (>60) BUN/Creatinine Ratio (9-20) Glucose (80-116) mg/dL POC Glucose (80-116) mg/dL Lactic Acid (0.4-2.2) mmol/L Calcium (8.6-10.2) mg/dL Troponin I (<0.017-0.056) ng/mL NT-Pro-B Natriuret Pep 3667 H* (<=125) pg/mL Urine Color Yellow (YELLOW) Urine Appearance Clear (CLEAR) Urine pH 7.0 H (5.0-6.5) Ur Specific [place] 1.010 (1.010-1.025) Urine Protein Negative (NEGATIVE) mg/dL Urine Glucose (UA) Normal (NEGATIVE) mg/dL Urine Ketones Negative (NEGATIVE) mg/dL Urine Occult Blood Moderate H (NEGATIVE) Urine Nitrite Negative (NEGATIVE) Urine Bilirubin Negative (NEGATIVE) Urine Urobilinogen Normal (NEGATIVE) mg/dL Ur Leukocyte Esterase Negative (NEGATIVE) Urine RBC 0-5 (0) Urine WBC 0-5 (0) Ur Squamous Epith Cells Occasional (NS,R,O) Urine Bacteria Few H (NS) Result Diagrams: 01/02/18 10:20 01/02/18 10:20 - Problem List (1) Altered mental status SNOMED Code(s): 731410574 ICD Code: R41.82 - ALTERED MENTAL STATUS, UNSPECIFIED Status: Acute Current Visit: Yes (2) Palliative care encounter SNOMED Code(s): 988919982 ICD Code: Z51.5 - ENCOUNTER FOR PALLIATIVE CARE Status: Acute Current Visit: Yes (3) Diabetes 1.5, managed as type 2 SNOMED Code(s): 525815294 ICD Code: E10.9 - TYPE 1 DIABETES MELLITUS WITHOUT COMPLICATIONS Status: Acute Current Visit: No (4) Hypertension SNOMED Code(s): 21354999 ICD Code: I10 - ESSENTIAL (PRIMARY) HYPERTENSION Status: Acute Current Visit: No (5) COPD (chronic obstructive pulmonary disease) SNOMED Code(s): 86259709 ICD Code: J44.9 - CHRONIC OBSTRUCTIVE PULMONARY DISEASE, UNSPECIFIED Status : Chronic Current Visit: No Qualifiers: COPD type: chronic bronchitis (6) Chronic renal failure SNOMED Code(s): 48865479, 662308912 ICD Code: N18.9 - CHRONIC KIDNEY DISEASE, UNSPECIFIED Status: Chronic Current Visit: No Qualifiers: Chronic kidney disease stage: stage 3 (moderate) Qualified Code(s): N18.3 - Chronic kidney disease, stage 3 (moderate) (7) Morbid obesity SNOMED Code(s): 532493340 ICD Code: E66.01 - MORBID (SEVERE) OBESITY DUE TO EXCESS CALORIES Status: Chronic Current Visit: No (8) Sleep apnea SNOMED Code(s): 28406020 ICD Code: G47.30 - SLEEP APNEA, UNSPECIFIED Status: Chronic Current Visit : No Qualifiers: Sleep apnea type: obstructive Qualified Code(s): G47.33 - Obstructive sleep apnea (adult) (pediatric) Problem List Initiated/Reviewed/Updated: Yes Orders Last 24hrs: Active Orders 24 hr Category Date Time Status Patient Status [ADT] Routine ADT 01/02/18 11:19 Active EKG Documentation Completion [RC] ASDIRECTED Care 01/02/18 10:07 Inactive Oxygen Therapy [RC] PRN Care 01/02/18 13:00 Active Pulse Oximetry [RC] PRN Care 01/02/18 11:24 Active VTE/DVT Education [RC] Per Unit Routine Care 01/02/18 11:19 Active Vital Signs [RC] 08,12,16,20,00,04 Care 01/02/18 11:19 Active Nothing per Oral Now Diet [DIET] Diet 01/02/18 Breakfast Ordered CULTURE BLOOD [BC] Urgent Lab 01/02/18 10:15 Received CULTURE BLOOD [BC] Urgent Lab 01/02/18 10:20 Received UA W/MICROSCOPIC [URIN] Stat Lab 01/02/18 11:15 Ordered Sodium Chloride 0.9% [Normal Saline] 1,000 ml Med 01/02/18 14:30 Active IV ASDIRECTED Sodium Chloride 0.9% [Saline Flush] Med 01/02/18 11:19 Active 10 ml FLUSH ASDIRECTED PRN Blood Culture x2 Reflex Set [OM.PC] Urgent Oth 01/02/18 10:13 Ordered Peripheral IV Insertion Adult [OM.PC] Routine Oth 01/02/18 11:19 Ordered Resuscitation Status Routine Resus Stat 01/02/18 11:19 Ordered EKG 12 Lead [EK] Routine Ther 01/02/18 10:07 Ordered Medication Orders Sodium Chloride (Normal Saline) 1,000 mls @ 125 mls/hr IV ASDIRECTED INDERJIT Last Admin: 01/02/18 14:47 Dose: 125 mls/hr Sodium Chloride (Saline Flush) 10 ml FLUSH ASDIRECTED PRN PRN Reason: Keep Vein Open Last Admin: 01/02/18 14:31 Dose: 10 ml Admin: 01/02/18 10:30 Dose: 10 ml Assessment/Plan Comment:: 1. Admit and follow. 2. Reviewed the labs and CT exam. 3. Patient's a DNR per [facility]. 4. IV fluids. 5. Hold medications for now. 6. Repeat CT scan in the future if she does not prove. 7. There is no signs of sepsis but I will start Rocephin 1 g a day until I ruled out. Blood cultures have been ordered. 8. Lovenox once a day for prophylaxis plus SCDs.
[2018-01-03] MEDS: Sodium Chloride 0.9% 1,000 ML IV SCH (07:14)
[2018-01-03] MEDS ORDERED: Acetaminophen 500 MG Tab PO PRN (08:34)
[2018-01-03] MEDS ORDERED: Polyethylene Glycol 3350 Powder 17 GM Packet PO PRN (08:34)
[2018-01-03] MEDS ORDERED: Albuterol 0.083% 2.5 MG/3 ML Neb Soln INH PRN (08:34)
--- NOTE | 2018-01-03 08:42 | PCM.PN ---
- General Info Date of Service: 01/03/18 Admission Dx/Problem (Free Text): Patient is awake today and answering questions. She is alert and oriented 3. She says she does not know what happened remember anything. She denies fevers, chills, nasal congestion, chest pain, shortness breath, cough. She states she was recently diagnosed with colon cancer was at [facility] for rehabilitation. She plans on going home after rehabilitation. She has no concerns today. - Patient Data Vitals - Most Recent: Last Vital Signs Temp 97.8 F 01/03/18 04:00 Pulse 66 01/03/18 04:00 Resp 16 01/03/18 04:00 BP 135/53 L 01/03/18 04:00 Pulse Ox 96 01/03/18 04:00 Weight - Most Recent: 253 lb 8 oz I&O - Last 24 Hours: Intake & Output 01/02/18 01/03/18 01/03/18 22:59 06:59 14:59 Intake Total 905 Balance 905 Lab Results Last 24 Hours: Laboratory Results - last 24 hr 01/02/18 01/02/18 01/02/18 Range/Units 10:04 10:20 10:20 WBC 9.2 (4.5-12.0) X10-3/uL RBC 3.42 (3.23-5.20) x10(6)uL Hgb 10.9 L (11.5-15.5) g/dL Hct 32.1 (30.0-51.3) % MCV 93.7 (80-96) fL MCH 31.8 (27.7-33.6) pg MCHC 34.0 (32.2-35.4) g/dL RDW 16.7 H (11.5-15.5) % Plt Count 144 (125-369) X10(3)uL MPV 8.9 (7.4-10.4) fL Neut % (Auto) 73.9 (46-82) % Lymph % (Auto) 13.9 (13-37) % [place] % (Auto) 9.4 (4-12) % Eos % (Auto) 2 (1.0-5.0) % Baso % (Auto) 1 (0-2) % Neut # (Auto) 6.6 (1.6-8.3) # Lymph # (Auto) 1.3 (0.6-5.0) # [place] # (Auto) 0.9 (0.0-1.3) # Eos # (Auto) 0.2 (0.0-0.8) # Baso # (Auto) 0.1 (0.0-0.2) # PT 13.2 H (8.7-11.1) INR 1.36 H (0.89-1.13) Sodium (135-145) mmol/L Potassium (3.5-5.3) mmol/L Chloride (100-110) mmol/L Carbon Dioxide (21-32) mmol/L BUN (7-18) mg/dL Creatinine (0.55-1.02) mg/dL Est Cr Clr Drug Dosing mL/min Estimated GFR (MDRD) (>60) BUN/Creatinine Ratio (9-20) Glucose (80-116) mg/dL POC Glucose 86 D (80-116) mg/dL Lactic Acid (0.4-2.2) mmol/L Calcium (8.6-10.2) mg/dL Total Bilirubin (0.1-1.3) mg/dL AST (5-25) IU/L ALT (12-36) U/L Alkaline Phosphatase (56-112) IU/L Troponin I (<0.017-0.056) ng/mL NT-Pro-B Natriuret Pep (<=125) pg/mL Total Protein (6.0-8.0) g/dL Albumin (3.2-4.6) g/dL Globulin g/dL Albumin/Globulin Ratio Urine Color (YELLOW) Urine Appearance (CLEAR) Urine pH (5.0-6.5) Ur Specific [place] (1.010-1.025) Urine Protein (NEGATIVE) mg/dL Urine Glucose (UA) (NEGATIVE) mg/dL Urine Ketones (NEGATIVE) mg/dL Urine Occult Blood (NEGATIVE) Urine Nitrite (NEGATIVE) Urine Bilirubin (NEGATIVE) Urine Urobilinogen (NEGATIVE) mg/dL Ur Leukocyte Esterase (NEGATIVE) Urine RBC (0) Urine WBC (0) Ur Squamous Epith Cells (NS,R,O) Urine Bacteria (NS) 01/02/18 01/02/18 01/02/18 Range/Units 10:20 10:20 10:20 WBC (4.5-12.0) X10-3/uL RBC (3.23-5.20) x10(6)uL Hgb (11.5-15.5) g/dL Hct (30.0-51.3) % MCV (80-96) fL MCH (27.7-33.6) pg MCHC (32.2-35.4) g/dL RDW (11.5-15.5) % Plt Count (125-369) X10(3)uL MPV (7.4-10.4) fL Neut % (Auto) (46-82) % Lymph % (Auto) (13-37) % [place] % (Auto) (4-12) % Eos % (Auto) (1.0-5.0) % Baso % (Auto) (0-2) % Neut # (Auto) (1.6-8.3) # Lymph # (Auto) (0.6-5.0) # [place] # (Auto) (0.0-1.3) # Eos # (Auto) (0.0-0.8) # Baso # (Auto) (0.0-0.2) # PT (8.7-11.1) INR (0.89-1.13) Sodium 142 (135-145) mmol/L Potassium 4.2 (3.5-5.3) mmol/L Chloride 107 D (100-110) mmol/L Carbon Dioxide 27 (21-32) mmol/L BUN 24 H (7-18) mg/dL Creatinine 1.6 H (0.55-1.02) mg/dL Est Cr Clr Drug Dosing 34.09 mL/min Estimated GFR (MDRD) 32 L (>60) BUN/Creatinine Ratio 15.0 (9-20) Glucose 93 D (80-116) mg/dL POC Glucose (80-116) mg/dL Lactic Acid 1.8 (0.4-2.2) mmol/L Calcium 8.6 (8.6-10.2) mg/dL Total Bilirubin (0.1-1.3) mg/dL AST (5-25) IU/L ALT (12-36) U/L Alkaline Phosphatase (56-112) IU/L Troponin I < 0.017 L (<0.017-0.056) ng/mL NT-Pro-B Natriuret Pep (<=125) pg/mL Total Protein (6.0-8.0) g/dL Albumin (3.2-4.6) g/dL Globulin g/dL Albumin/Globulin Ratio Urine Color (YELLOW) Urine Appearance (CLEAR) Urine pH (5.0-6.5) Ur Specific [place] (1.010-1.025) Urine Protein (NEGATIVE) mg/dL Urine Glucose (UA) (NEGATIVE) mg/dL Urine Ketones (NEGATIVE) mg/dL Urine Occult Blood (NEGATIVE) Urine Nitrite (NEGATIVE) Urine Bilirubin (NEGATIVE) Urine Urobilinogen (NEGATIVE) mg/dL Ur Leukocyte Esterase (NEGATIVE) Urine RBC (0) Urine WBC (0) Ur Squamous Epith Cells (NS,R,O) Urine Bacteria (NS) 01/02/18 01/02/18 01/03/18 Range/Units 10:20 11:15 06:20 WBC 5.9 (4.5-12.0) X10-3/uL RBC 3.46 (3.23-5.20) x10(6)uL Hgb 11.0 L (11.5-15.5) g/dL Hct 33.2 (30.0-51.3) % MCV 95.9 (80-96) fL MCH 31.9 (27.7-33.6) pg MCHC 33.2 (32.2-35.4) g/dL RDW 17.3 H (11.5-15.5) % Plt Count 122 L (125-369) X10(3)uL MPV 8.5 (7.4-10.4) fL Neut % (Auto) 72.0 (46-82) % Lymph % (Auto) 16.2 (13-37) % [place] % (Auto) 8.0 (4-12) % Eos % (Auto) 4 (1.0-5.0) % Baso % (Auto) 0 (0-2) % Neut # (Auto) 4.2 (1.6-8.3) # Lymph # (Auto) 1.0 (0.6-5.0) # [place] # (Auto) 0.5 (0.0-1.3) # Eos # (Auto) 0.2 (0.0-0.8) # Baso # (Auto) 0.0 (0.0-0.2) # PT (8.7-11.1) INR (0.89-1.13) Sodium (135-145) mmol/L Potassium (3.5-5.3) mmol/L Chloride (100-110) mmol/L Carbon Dioxide (21-32) mmol/L BUN (7-18) mg/dL Creatinine (0.55-1.02) mg/dL Est Cr Clr Drug Dosing mL/min Estimated GFR (MDRD) (>60) BUN/Creatinine Ratio (9-20) Glucose (80-116) mg/dL POC Glucose (80-116) mg/dL Lactic Acid (0.4-2.2) mmol/L Calcium (8.6-10.2) mg/dL Total Bilirubin (0.1-1.3) mg/dL AST (5-25) IU/L ALT (12-36) U/L Alkaline Phosphatase (56-112) IU/L Troponin I (<0.017-0.056) ng/mL NT-Pro-B Natriuret Pep 3667 H* (<=125) pg/mL Total Protein (6.0-8.0) g/dL Albumin (3.2-4.6) g/dL Globulin g/dL Albumin/Globulin Ratio Urine Color Yellow (YELLOW) Urine Appearance Clear (CLEAR) Urine pH 7.0 H (5.0-6.5) Ur Specific [place] 1.010 (1.010-1.025) Urine Protein Negative (NEGATIVE) mg/dL Urine Glucose (UA) Normal (NEGATIVE) mg/dL Urine Ketones Negative (NEGATIVE) mg/dL Urine Occult Blood Moderate H (NEGATIVE) Urine Nitrite Negative (NEGATIVE) Urine Bilirubin Negative (NEGATIVE) Urine Urobilinogen Normal (NEGATIVE) mg/dL Ur Leukocyte Esterase Negative (NEGATIVE) Urine RBC 0-5 (0) Urine WBC 0-5 (0) Ur Squamous Epith Cells Occasional (NS,R,O) Urine Bacteria Few H (NS) 01/03/18 01/03/18 Range/Units 06:20 06:20 WBC (4.5-12.0) X10-3/uL RBC (3.23-5.20) x10(6)uL Hgb (11.5-15.5) g/dL Hct (30.0-51.3) % MCV (80-96) fL MCH (27.7-33.6) pg MCHC (32.2-35.4) g/dL RDW (11.5-15.5) % Plt Count (125-369) X10(3)uL MPV (7.4-10.4) fL Neut % (Auto) (46-82) % Lymph % (Auto) (13-37) % [place] % (Auto) (4-12) % Eos % (Auto) (1.0-5.0) % Baso % (Auto) (0-2) % Neut # (Auto) (1.6-8.3) # Lymph # (Auto) (0.6-5.0) # [place] # (Auto) (0.0-1.3) # Eos # (Auto) (0.0-0.8) # Baso # (Auto) (0.0-0.2) # PT (8.7-11.1) INR (0.89-1.13) Sodium 145 (135-145) mmol/L Potassium 3.5 (3.5-5.3) mmol/L Chloride 113 H D (100-110) mmol/L Carbon Dioxide 25 (21-32) mmol/L BUN 22 H (7-18) mg/dL Creatinine 1.3 H (0.55-1.02) mg/dL Est Cr Clr Drug Dosing 41.95 mL/min Estimated GFR (MDRD) 41 L (>60) BUN/Creatinine Ratio 16.9 (9-20) Glucose 181 H D (80-116) mg/dL POC Glucose (80-116) mg/dL Lactic Acid (0.4-2.2) mmol/L Calcium 7.8 L (8.6-10.2) mg/dL Total Bilirubin 1.8 H (0.1-1.3) mg/dL AST 80 H (5-25) IU/L ALT 42 H (12-36) U/L Alkaline Phosphatase 138 H (56-112) IU/L Troponin I < 0.017 L (<0.017-0.056) ng/mL NT-Pro-B Natriuret Pep (<=125) pg/mL Total Protein 6.7 (6.0-8.0) g/dL Albumin 1.8 L (3.2-4.6) g/dL Globulin 4.9 g/dL Albumin/Globulin Ratio 0.4 Urine Color (YELLOW) Urine Appearance (CLEAR) Urine pH (5.0-6.5) Ur Specific [place] (1.010-1.025) Urine Protein (NEGATIVE) mg/dL Urine Glucose (UA) (NEGATIVE) mg/dL Urine Ketones (NEGATIVE) mg/dL Urine Occult Blood (NEGATIVE) Urine Nitrite (NEGATIVE) Urine Bilirubin (NEGATIVE) Urine Urobilinogen (NEGATIVE) mg/dL Ur Leukocyte Esterase (NEGATIVE) Urine RBC (0) Urine WBC (0) Ur Squamous Epith Cells (NS,R,O) Urine Bacteria (NS) Med Orders - Current: Current Medications Acetaminophen (Tylenol Extra Strength) 1,000 mg PO Q8H PRN PRN Reason: Pain Albuterol (Proventil Neb Soln) 2.5 mg INH Q4H PRN PRN Reason: BREATHING Albuterol/Ipratropium (Duoneb 3.0-0.5 Mg/3 Ml) 3 ml INH QID [facility] Aspirin (Halfprin) 81 mg PO DAILY [facility] Budesonide (Pulmicort) 0.5 mg INH BID [facility] Bupropion HCl (Wellbutrin Xl) 150 mg PO DAILY [facility] Enoxaparin Sodium (Lovenox) 40 mg SUBCUT DAILY [facility] Ferrous Sulfate (Ferrous Sulfate) 325 mg PO TIDMEALS [facility] Gabapentin (Neurontin) 300 mg PO TID [facility] Insulin Human Lispro (Humalog) 31 unit SUBCUT TIDMEALS [facility] Levothyroxine Sodium (Levothroid) 274 mcg PO ACBREAKFAST [facility] Magnesium Oxide (Magnesium Oxide) 400 mg PO WITHLUNCH [facility] Magnesium Oxide (Magnesium Oxide) 800 mg PO BIDMEALS [facility] Metolazone (Zaroxolyn) 2.5 mg PO TUFR [facility] Non-Formulary Medication (Bumetanide [Bumex]) 3 mg PO BID [facility] Non-Formulary Medication (Cholecalciferol (Vitamin D3) [Vitamin D3]) 1,000 unit PO WITHLUNCH [facility] Non-Formulary Medication (Fluoxetine [Prozac]) 40 mg PO BID [facility] Non-Formulary Medication (Guaifenesin [Guaifenesin]) 400 mg PO Q6H PRN PRN Reason: MUCOUS Non-Formulary Medication (Insulin Detemir [Levemir]) 50 units SUBCUT BID [facility] Non-Formulary Medication (Potassium Chloride [Potassium Chloride]) 20 meq PO DAILY [facility] Nystatin (Nystop) gm TOP BID [facility] Pantoprazole Sodium (Protonix) 40 mg PO ACBREAKFAST [facility] Polyethylene Glycol (Miralax) 17 gm PO DAILY PRN PRN Reason: Constipation Pravastatin Sodium (Pravachol) 20 mg PO BEDTIME [facility] Pyridoxine HCl (Vitamin B6-Pyridoxine) 100 mg PO PCLUNCH [facility] Sodium Chloride (Saline Flush) 10 ml FLUSH ASDIRECTED PRN PRN Reason: Keep Vein Open Last Admin: 01/02/18 14:31 Dose: 10 ml Spironolactone (Aldactone) 50 mg PO DAILY [facility] Trazodone HCl (Trazodone) 50 mg PO BEDTIME [facility] Discontinued Medications Ceftriaxone Sodium (Rocephin) 1,000 mg IVPUSH Q24H [facility] Last Admin: 01/02/18 19:33 Dose: 1,000 mg Sodium Chloride (Normal Saline) 1,000 mls @ 125 mls/hr IV ASDIRECTED [facility] Last Admin: 01/03/18 07:14 Dose: 125 mls/hr Ceftriaxone Sodium 1,000 mg/ (Sodium Chloride) 50 mls @ 100 mls/hr IV Q24H [facility] Last Admin: 01/02/18 19:55 Dose: Not Given Lorazepam (Ativan) 0.25 mg IVPUSH ONETIME ONE Stop: 01/02/18 14:18 Last Admin: 01/02/18 14:32 Dose: 0.25 mg - Exam General: Alert, Oriented, Cooperative Neck: Supple Lungs: Clear to Auscultation, Normal Respiratory Effort Cardiovascular: Regular Rate, Regular Rhythm, No Murmurs Extremities: Normal Inspection, No Pedal Edema Neurological: No New Focal Deficit, Normal Speech Psy/Mental Status: Alert, Normal Affect, Normal Mood - Problem List & Annotations (1) Altered mental status SNOMED Code(s): 729389601 Code(s): R41.82 - ALTERED MENTAL STATUS, UNSPECIFIED Status: Acute Current Visit: Yes (2) Palliative care encounter SNOMED Code(s): 127988021 Code(s): Z51.5 - ENCOUNTER FOR PALLIATIVE CARE Status: Acute Current Visit: Yes (3) Diabetes 1.5, managed as type 2 SNOMED Code(s): 379307752 Code(s): E10.9 - TYPE 1 DIABETES MELLITUS WITHOUT COMPLICATIONS Status: Acute Current Visit: No (4) Hypertension SNOMED Code(s): 93041442 Code(s): I10 - ESSENTIAL (PRIMARY) HYPERTENSION Status: Acute Current Visit: No (5) COPD (chronic obstructive pulmonary disease) SNOMED Code(s): 35576674 Code(s): J44.9 - CHRONIC OBSTRUCTIVE PULMONARY DISEASE, UNSPECIFIED Status : Chronic Current Visit: No Qualifiers: COPD type: chronic bronchitis (6) Chronic renal failure SNOMED Code(s): 07857069, 084684114 Code(s): N18.9 - CHRONIC KIDNEY DISEASE, UNSPECIFIED Status: Chronic Current Visit: No Qualifiers: Chronic kidney disease stage: stage 3 (moderate) Qualified Code(s): N18.3 - Chronic kidney disease, stage 3 (moderate) (7) Morbid obesity SNOMED Code(s): 285261126 Code(s): E66.01 - MORBID (SEVERE) OBESITY DUE TO EXCESS CALORIES Status: Chronic Current Visit: No (8) Sleep apnea SNOMED Code(s): 93031347 Code(s): G47.30 - SLEEP APNEA, UNSPECIFIED Status: Chronic Current Visit : No Qualifiers: Sleep apnea type: obstructive Qualified Code(s): G47.33 - Obstructive sleep apnea (adult) (pediatric) (9) Elevated LFTs SNOMED Code(s): 419434261, 293468570 Code(s): R94.5 - ABNORMAL RESULTS OF LIVER FUNCTION STUDIES Status: Acute Current Visit: Yes - Problem List Review Problem List Initiated/Reviewed/Updated: Yes - My Orders Last 24 Hours: My Active Orders 01/02/18 18:10 SCD [Sequential Compression Device] [OM.PC] Routine 01/03/18 08:34 Acetaminophen [Tylenol Extra Strength] 1,000 mg PO Q8H PRN Albuterol [Proventil Neb Soln] 2.5 mg INH Q4H PRN Polyethylene Glycol 3350 [MiraLAX] 17 gm PO DAILY PRN guaiFENesin [Guaifenesin] 400 mg PO Q6H PRN Convert IV to Saline Lock [OM.PC] Routine 01/03/18 08:38 Ambulate [RC] PER UNIT ROUTINE 01/03/18 09:00 Albuterol/Ipratropium [DuoNeb 3.0-0.5 MG/3 ML] 3 ml INH QID Aspirin [Halfprin] 81 mg PO DAILY Budesonide [Pulmicort] 0.5 mg INH BID Bumetanide [Bumex] 3 mg PO BID Enoxaparin [Lovenox] 40 mg SUBCUT DAILY FLUoxetine [PROzac] 40 mg PO BID Gabapentin [Neurontin] 300 mg PO TID Insulin Detemir [Levemir] 50 units SUBCUT BID Nystatin [Nystop] 1 applic TOP BID Potassium Chloride [Potassium Chloride] 20 meq PO DAILY Spironolactone [Aldactone] 50 mg PO DAILY buPROPion [Wellbutrin XL] 150 mg PO DAILY 01/03/18 12:00 Cholecalciferol (Vitamin D3) [Vitamin D3] 1,000 unit PO WITHLUNCH Ferrous Sulfate 325 mg PO TIDMEALS Insulin Lispro [HumaLOG] 31 unit SUBCUT TIDMEALS Magnesium Oxide 400 mg PO WITHLUNCH 01/03/18 13:00 Vitamin B6-pyridOXINE 100 mg PO PCLUNCH 01/03/18 18:00 Magnesium Oxide 800 mg PO BIDMEALS 01/03/18 21:00 Pravastatin [Pravachol] 20 mg PO BEDTIME traZODone 50 mg PO BEDTIME 01/03/18 Lunch Consistent Carbohydrate Diet [DIET] 01/04/18 07:30 Levothyroxine [Levothroid] 274 mcg PO ACBREAKFAST Pantoprazole [ProTONIX] 40 mg PO ACBREAKFAST 01/06/18 08:34 metOLazone [Zaroxolyn] 2.5 mg PO TUFR - Plan Plan:: 1. DC IV antibiotics because it does not appear that she has an infection. 2. Restart all her medications. 3. Restart diet with ADA and continue her regular insulin regimen 4. Liver functions are elevated but she states that's been that way. 5. Ambulate with student assistant up in chair.
[2018-01-03] MEDS ORDERED: guaiFENesin 200 MG Tab PO PRN (09:00)
[2018-01-03] MEDS: Albuterol/Ipratropium 3.0-0.5 MG/3 ML Neb Soln INH SCH ×4 (09:34→21:06)
[2018-01-03] MEDS: buPROPion 150 MG Tab.ER PO SCH (10:18)
[2018-01-03] MEDS: Levothyroxine 75 MCG Tab PO SCH (10:18)
[2018-01-03] MEDS: Aspirin 81 MG Tab.EC PO SCH (10:18)
[2018-01-03] MEDS: Spironolactone 50 MG Tab PO SCH (10:18)
[2018-01-03] MEDS: Gabapentin 300 MG Cap PO SCH ×3 (10:18→20:49)
[2018-01-03] MEDS: Potassium Chloride 20 MEQ Tab.ER PO SCH (10:19)
[2018-01-03] MEDS: Pantoprazole 40 MG Tab.CR PO SCH (10:19)
[2018-01-03] MEDS: FLUoxetine 20 MG Cap PO SCH ×2 (10:19→20:50)
[2018-01-03] MEDS: Bumetanide 2 MG Tab PO SCH ×2 (10:19→14:12)
[2018-01-03] MEDS: Budesonide 0.5 MG/2 ML Neb Susp INH SCH ×2 (10:20→20:50)
[2018-01-03] MEDS: Enoxaparin 40 MG/0.4 ML Syringe SUBCUT SCH (10:20)
[2018-01-03] MEDS: Nystatin Topical Powder 15 GM Bottle TOP SCH ×2 (10:20→20:49)
[2018-01-03] MEDS: Insulin Glargine,Human Rec. Analog 100 Units/ML 3 ML Pen SUBCUT SCH ×2 (10:25→21:13)
[2018-01-03] MEDS: Magnesium Oxide 400 MG Tab PO SCH ×2 (12:57→17:14)
[2018-01-03] MEDS: Vitamin B6-pyridOXINE 100 MG Tab PO SCH (12:57)
[2018-01-03] MEDS: Ferrous Sulfate 325 MG Tab PO SCH ×2 (12:57→17:14)
[2018-01-03] MEDS: Cholecalciferol (Vitamin D3) 1,000 Unit Tab PO SCH (12:57)
[2018-01-03] MEDS: Insulin Lispro 100 Unit/ML 3 ML KwikPen SUBCUT SCH ×2 (13:01→18:42)
[2018-01-03] MEDS ORDERED: Ibuprofen 400 MG Tab PO PRN (14:35)
[2018-01-03] MEDS ORDERED: Pravastatin 20 MG Tab PO SCH (21:00)
[2018-01-03] MEDS ORDERED: traZODone 50 MG Tab PO SCH (21:00)
[2018-01-04] MEDS: Levothyroxine 75 MCG Tab PO SCH (06:19)
[2018-01-04] MEDS: Pantoprazole 40 MG Tab.CR PO SCH (06:20)
[2018-01-04] MEDS: Albuterol/Ipratropium 3.0-0.5 MG/3 ML Neb Soln INH SCH ×2 (08:05→12:30)
[2018-01-04] MEDS: Budesonide 0.5 MG/2 ML Neb Susp INH SCH (08:06)
[2018-01-04] MEDS: Ferrous Sulfate 325 MG Tab PO SCH ×2 (08:18→12:38)
[2018-01-04] MEDS: Potassium Chloride 20 MEQ Tab.ER PO SCH (08:18)
[2018-01-04] MEDS: Aspirin 81 MG Tab.EC PO SCH (08:18)
[2018-01-04] MEDS: buPROPion 150 MG Tab.ER PO SCH (08:18)
[2018-01-04] MEDS: Spironolactone 50 MG Tab PO SCH (08:18)
[2018-01-04] MEDS: Gabapentin 300 MG Cap PO SCH ×2 (08:18→14:25)
[2018-01-04] MEDS: Magnesium Oxide 400 MG Tab PO SCH ×2 (08:18→12:35)
[2018-01-04] MEDS: FLUoxetine 20 MG Cap PO SCH (08:18)
[2018-01-04] MEDS: Bumetanide 2 MG Tab PO SCH ×2 (08:20→14:25)
[2018-01-04] MEDS: Insulin Lispro 100 Unit/ML 3 ML KwikPen SUBCUT SCH ×2 (08:20→12:34)
[2018-01-04] MEDS: Nystatin Topical Powder 15 GM Bottle TOP SCH (08:29)
--- NOTE | 2018-01-04 08:46 | PCM.PN ---
- General Info Date of Service: 01/04/18 Admission Dx/Problem (Free Text): Patient is doing well without concerns. She denies diplopia or blurred vision chest pain shortness of breath leg swelling. She states she would like to go home. - Patient Data Vitals - Most Recent: Last Vital Signs Temp 97.7 F 01/04/18 04:45 Pulse 67 01/04/18 04:45 Resp 18 01/04/18 04:45 BP 103/47 L 01/04/18 04:45 Pulse Ox 93 L 01/04/18 04:45 Weight - Most Recent: 264 lb 2 oz Lab Results Last 24 Hours: Laboratory Results - last 24 hr 01/03/18 01/03/18 01/04/18 Range/Units 17:11 20:41 06:28 POC Glucose 111 107 66 L (80-116) mg/dL 01/04/18 Range/Units 08:25 POC Glucose 124 H (80-116) mg/dL Michael Results Last 24 Hours: Microbiology 01/02/18 10:20 Aerobic Blood Culture - Preliminary Blood - Venous - Lab Draw NO GROWTH AFTER 1 DAY Anaerobic Blood Culture - Preliminary NO GROWTH AFTER 1 DAY 01/02/18 10:15 Aerobic Blood Culture - Preliminary Blood - Venous NO GROWTH AFTER 1 DAY Anaerobic Blood Culture - Preliminary NO GROWTH AFTER 1 DAY Med Orders - Current: Current Medications Acetaminophen (Tylenol Extra Strength) 1,000 mg PO Q8H PRN PRN Reason: Pain Last Admin: 01/03/18 10:25 Dose: 1,000 mg Albuterol (Proventil Neb Soln) 2.5 mg INH Q4H PRN PRN Reason: BREATHING Albuterol/Ipratropium (Duoneb 3.0-0.5 Mg/3 Ml) 3 ml INH QIDRT [facility] Last Admin: 01/04/18 08:05 Dose: 3 ml Aspirin (Halfprin) 81 mg PO DAILY [facility] Last Admin: 01/04/18 08:18 Dose: 81 mg Budesonide (Pulmicort) 0.5 mg INH BIDRT [facility] Last Admin: 01/04/18 08:06 Dose: 0.5 mg Bumetanide (Bumex) 3 mg PO BIDDIURETIC [facility] Last Admin: 01/04/18 08:20 Dose: 3 mg Bupropion HCl (Wellbutrin Xl) 150 mg PO DAILY [facility] Last Admin: 01/04/18 08:18 Dose: 150 mg Cholecalciferol (Vitamin D3) 1,000 units PO WITHLUNCH [facility] Last Admin: 01/03/18 12:57 Dose: 1,000 units Enoxaparin Sodium (Lovenox) 40 mg SUBCUT DAILY [facility] Last Admin: 01/03/18 10:20 Dose: 40 mg Ferrous Sulfate (Ferrous Sulfate) 325 mg PO TIDMEALS [facility] Last Admin: 01/04/18 08:18 Dose: 325 mg Fluoxetine HCl (Prozac) 40 mg PO BID [facility] Last Admin: 01/04/18 08:18 Dose: 40 mg Gabapentin (Neurontin) 300 mg PO TID [facility] Last Admin: 01/04/18 08:18 Dose: 300 mg Guaifenesin (Organ-I Nr) 400 mg PO Q6H PRN PRN Reason: MUCOUS Ibuprofen (Motrin) 400 mg PO Q6H PRN PRN Reason: Pain Last Admin: 01/03/18 15:57 Dose: 400 mg Insulin Glargine (Lantus Solostar) 50 units SUBCUT BID [facility] Last Admin: 01/03/18 21:13 Dose: 50 units Insulin Human Lispro (Humalog) 31 unit SUBCUT TIDMEALS [facility] Last Admin: 01/04/18 08:20 Dose: 31 units Levothyroxine Sodium (Levothyroxine) 200 mcg PO DAILY@0600 [facility] Last Admin: 01/04/18 06:19 Dose: 200 mcg Levothyroxine Sodium (Levothyroxine) 75 mcg PO DAILY@0600 [facility] Last Admin: 01/04/18 06:19 Dose: 75 mcg Magnesium Oxide (Magnesium Oxide) 400 mg PO WITHLUNCH [facility] Last Admin: 01/03/18 12:57 Dose: 400 mg Magnesium Oxide (Magnesium Oxide) 800 mg PO BIDMEALS [facility] Last Admin: 01/04/18 08:18 Dose: 800 mg Metolazone (Zaroxolyn) 2.5 mg PO TuFr@0800 [facility] Nystatin (Nystop) 0 gm TOP BID [facility] Last Admin: 01/04/18 08:29 Dose: 1 applic Pantoprazole Sodium (Protonix) 40 mg PO DAILY@0600 [facility] Last Admin: 01/04/18 06:20 Dose: 40 mg Polyethylene Glycol (Miralax) 17 gm PO DAILY PRN PRN Reason: Constipation Potassium Chloride (Klor-Con M20) 20 meq PO DAILY [facility] Last Admin: 01/04/18 08:18 Dose: 20 meq Pravastatin Sodium (Pravachol) 20 mg PO BEDTIME [facility] Last Admin: 01/03/18 20:50 Dose: 20 mg Pyridoxine HCl (Vitamin B6-Pyridoxine) 100 mg PO PCLUNCH [facility] Last Admin: 01/03/18 12:57 Dose: 100 mg Sodium Chloride (Saline Flush) 10 ml FLUSH ASDIRECTED PRN PRN Reason: Keep Vein Open Last Admin: 01/02/18 14:31 Dose: 10 ml Spironolactone (Aldactone) 50 mg PO DAILY [facility] Last Admin: 01/04/18 08:18 Dose: 50 mg Trazodone HCl (Trazodone) 50 mg PO BEDTIME [facility] Last Admin: 01/03/18 20:51 Dose: 50 mg Discontinued Medications Ceftriaxone Sodium (Rocephin) 1,000 mg IVPUSH Q24H [facility] Last Admin: 01/02/18 19:33 Dose: 1,000 mg Sodium Chloride (Normal Saline) 1,000 mls @ 125 mls/hr IV ASDIRECTED [facility] Last Admin: 01/03/18 07:14 Dose: 125 mls/hr Ceftriaxone Sodium 1,000 mg/ (Sodium Chloride) 50 mls @ 100 mls/hr IV Q24H [facility] Last Admin: 01/02/18 19:55 Dose: Not Given Lorazepam (Ativan) 0.25 mg IVPUSH ONETIME ONE Stop: 01/02/18 14:18 Last Admin: 01/02/18 14:32 Dose: 0.25 mg - Exam General: Alert, Oriented, Cooperative Lungs: Normal Respiratory Effort Extremities: No Pedal Edema Neurological: No New Focal Deficit, Normal Speech, Normal Tone, Other (Patient walks with a walker by herself.) Psy/Mental Status: Alert, Normal Affect, Normal Mood - Problem List & Annotations (1) Altered mental status SNOMED Code(s): 876410967 Code(s): R41.82 - ALTERED MENTAL STATUS, UNSPECIFIED Status: Acute Current Visit: Yes (2) Palliative care encounter SNOMED Code(s): 534709796 Code(s): Z51.5 - ENCOUNTER FOR PALLIATIVE CARE Status: Acute Current Visit: Yes (3) Diabetes 1.5, managed as type 2 SNOMED Code(s): 990978743 Code(s): E10.9 - TYPE 1 DIABETES MELLITUS WITHOUT COMPLICATIONS Status: Acute Current Visit: No (4) Hypertension SNOMED Code(s): 88651675 Code(s): I10 - ESSENTIAL (PRIMARY) HYPERTENSION Status: Acute Current Visit: No (5) COPD (chronic obstructive pulmonary disease) SNOMED Code(s): 61124456 Code(s): J44.9 - CHRONIC OBSTRUCTIVE PULMONARY DISEASE, UNSPECIFIED Status : Chronic Current Visit: No Qualifiers: COPD type: chronic bronchitis (6) Chronic renal failure SNOMED Code(s): 22938252, 764952145 Code(s): N18.9 - CHRONIC KIDNEY DISEASE, UNSPECIFIED Status: Chronic Current Visit: No Qualifiers: Chronic kidney disease stage: stage 3 (moderate) Qualified Code(s): N18.3 - Chronic kidney disease, stage 3 (moderate) (7) Morbid obesity SNOMED Code(s): 562909419 Code(s): E66.01 - MORBID (SEVERE) OBESITY DUE TO EXCESS CALORIES Status: Chronic Current Visit: No (8) Sleep apnea SNOMED Code(s): 65774111 Code(s): G47.30 - SLEEP APNEA, UNSPECIFIED Status: Chronic Current Visit : No Qualifiers: Sleep apnea type: obstructive Qualified Code(s): G47.33 - Obstructive sleep apnea (adult) (pediatric) (9) Elevated LFTs SNOMED Code(s): 713659742, 042627981 Code(s): R94.5 - ABNORMAL RESULTS OF LIVER FUNCTION STUDIES Status: Acute Current Visit: Yes (10) Lung cancer SNOMED Code(s): 397662817 Code(s): C34.90 - MALIGNANT NEOPLASM OF UNSP PART OF UNSP BRONCHUS OR LUNG Status: Acute Current Visit: Yes - Problem List Review Problem List Initiated/Reviewed/Updated: Yes - My Orders Last 24 Hours: My Active Orders 01/03/18 08:34 Acetaminophen [Tylenol Extra Strength] 1,000 mg PO Q8H PRN Albuterol [Proventil Neb Soln] 2.5 mg INH Q4H PRN Polyethylene Glycol 3350 [MiraLAX] 17 gm PO DAILY PRN 01/03/18 08:38 Ambulate [RC] PER UNIT ROUTINE 01/03/18 09:00 Albuterol/Ipratropium [DuoNeb 3.0-0.5 MG/3 ML] 3 ml INH QIDRT Aspirin [Halfprin] 81 mg PO DAILY Budesonide [Pulmicort] 0.5 mg INH BIDRT Bumetanide [Bumex] 3 mg PO BIDDIURETIC Enoxaparin [Lovenox] 40 mg SUBCUT DAILY FLUoxetine [PROzac] 40 mg PO BID Gabapentin [Neurontin] 300 mg PO TID Levothyroxine 200 mcg PO DAILY@0600 Levothyroxine 75 mcg PO DAILY@0600 Nystatin [Nystop] 0 gm TOP BID Pantoprazole [ProTONIX] 40 mg PO DAILY@0600 Spironolactone [Aldactone] 50 mg PO DAILY buPROPion [Wellbutrin XL] 150 mg PO DAILY guaiFENesin [Organ-I NR] 400 mg PO Q6H PRN 01/03/18 09:15 Insulin Glarg,Human.Rec.Analog [LantUS Solostar] 50 units SUBCUT BID Potassium Chloride [Klor-Con M20] 20 meq PO DAILY 01/03/18 09:35 RT Aerosol Therapy [RC] ASDIRECTED 01/03/18 10:15 Patient May [OM.PC] Click to Edit 01/03/18 12:00 Cholecalciferol (Vitamin D3) [Vitamin D3] 1,000 units PO WITHLUNCH Ferrous Sulfate 325 mg PO TIDMEALS Insulin Lispro [HumaLOG] 31 unit SUBCUT TIDMEALS Magnesium Oxide 400 mg PO WITHLUNCH 01/03/18 12:45 Blood Glucose Check, Bedside [RC] QIDACANDBED 01/03/18 13:00 Vitamin B6-pyridOXINE 100 mg PO PCLUNCH 01/03/18 14:35 Ibuprofen [Motrin] 400 mg PO Q6H PRN 01/03/18 18:00 Magnesium Oxide 800 mg PO BIDMEALS 01/03/18 21:00 Pravastatin [Pravachol] 20 mg PO BEDTIME traZODone 50 mg PO BEDTIME 01/03/18 Lunch Consistent Carbohydrate Diet [DIET] 01/04/18 07:55 Discontinue Saline Lock [Peripheral IV Discontinue] [OM.PC] Routine 01/06/18 08:00 metOLazone [Zaroxolyn] 2.5 mg PO TuFr@0800 - Plan Plan:: 1. DC IV. 2. [facility] gave up her bed. I suggested that she see PT/OT and social service tomorrow to get her back into swing bed. 3. patient states she wants to go home. Daughter from last is coming for 2 weeks to stay with her. She says she was only supposed to be a [facility] 1 week for some strengthening. She thinks she can handle it at home. She has no stairs. 4. I did watch her walk with a walker with no assist. She slow appears that she has good balance. She should go home on PT/OT and home health.
--- NOTE | 2018-01-04 08:53 | PCM.DCSUM1 ---
Discharge Summary - Hospital Course Free Text/Narrative:: Hospital course-she was seen in the ER had a CT scan that was negative for CVA. The ER doc talk to the neurologist gabby. They stated there is nothing that can be done there that can be done here in stress and we keep her here. She was admitted for observation. Blood sugar was okay. We found no real reason for having these neurological issues. When I saw her she open her eyes and looked around and respond to painful stimuli. The plan initially was to re-CT her 2 days assuming she had a CVA. The next morning she woke up and she was perfectly normal. We did not find any signs of infectious etiology, neurological etiology. This could be psychogenic and it could've been from anesthesia from the bronchoscopy. Watch her for another day and she had no issues. She's walking with a walker. She was assisting [facility] for rehabilitation for 1-2 weeks according to her. Her family felt that [facility] to communicate with them well and did not want to go back there so her room was given away when she was here. They wanted her placed somewhere else if she is going to go somewhere else. Patient stated she wanted to go home and her daughter was coming from [place] stay with her for 2 weeks. She has no stairs. I evaluated her and watched her walk and she did adequate which I think she can go home with no stairs with PT/OT/home health. I will send her home with the medications she came from from sitting catheters. I will have her, and her daughter and home health go over the medications and what she was taken before to make sure there is all her medications. I don't have records from [facility] to know if she is on no medications. She will recheck with Dr. Clement or Raffaele Rodriguez in one week. She's in chronic kidney failure stage III with elevated liver enzymes. Brief History: This is 67-year-old female patient that was in [place] yesterday and had a bronchoscopy was diagnosed with lung cancer. She was sent back to [facility] where she's been doing rehabilitation. And this morning she was found lethargic and only responsive to pain. She been seen in [place] for possible stroke symptoms and they ruled out center to [facility] for rehabilitation. She was at home before that. She was sent to the ER they evaluated her the CT scan was negative patient all her labs were negative. [facility] neurology was called and they said there is nothing [place] that they would do that we can do and they recommended admitting her hair. So admit her today. I cannot get a history from her. Diagnosis: Stroke: No - Discharge Data Discharge Date: 01/04/18 Discharge Disposition: Home, W Home Health Agency 06 Condition: Good - Discharge Diagnosis/Problem(s) (1) Altered mental status SNOMED Code(s): 449348282 ICD Code: R41.82 - ALTERED MENTAL STATUS, UNSPECIFIED Status: Acute Current Visit: Yes (2) Palliative care encounter SNOMED Code(s): 617037738 ICD Code: Z51.5 - ENCOUNTER FOR PALLIATIVE CARE Status: Acute Current Visit: Yes (3) Diabetes 1.5, managed as type 2 SNOMED Code(s): 152590365 ICD Code: E10.9 - TYPE 1 DIABETES MELLITUS WITHOUT COMPLICATIONS Status: Acute Current Visit: No (4) Hypertension SNOMED Code(s): 54987109 ICD Code: I10 - ESSENTIAL (PRIMARY) HYPERTENSION Status: Acute Current Visit: No (5) COPD (chronic obstructive pulmonary disease) SNOMED Code(s): 90340122 ICD Code: J44.9 - CHRONIC OBSTRUCTIVE PULMONARY DISEASE, UNSPECIFIED Status : Chronic Current Visit: No Qualifiers: COPD type: chronic bronchitis (6) Chronic renal failure SNOMED Code(s): 51718823, 312746324 ICD Code: N18.9 - CHRONIC KIDNEY DISEASE, UNSPECIFIED Status: Chronic Current Visit: No Qualifiers: Chronic kidney disease stage: stage 3 (moderate) Qualified Code(s): N18.3 - Chronic kidney disease, stage 3 (moderate) (7) Morbid obesity SNOMED Code(s): 681717197 ICD Code: E66.01 - MORBID (SEVERE) OBESITY DUE TO EXCESS CALORIES Status: Chronic Current Visit: No (8) Sleep apnea SNOMED Code(s): 79848558 ICD Code: G47.30 - SLEEP APNEA, UNSPECIFIED Status: Chronic Current Visit : No Qualifiers: Sleep apnea type: obstructive Qualified Code(s): G47.33 - Obstructive sleep apnea (adult) (pediatric) (9) Elevated LFTs SNOMED Code(s): 465080674, 720891701 ICD Code: R94.5 - ABNORMAL RESULTS OF LIVER FUNCTION STUDIES Status: Acute Current Visit: Yes (10) Lung cancer SNOMED Code(s): 352865052 ICD Code: C34.90 - MALIGNANT NEOPLASM OF UNSP PART OF UNSP BRONCHUS OR LUNG Status: Acute Current Visit: Yes - Patient Instructions Diet: Regular Diet as Tolerated Activity: As Tolerated Driving: Do Not Drive Showering/Bathing: May Shower Other/Special Instructions: 1. Recheck with Dr. Clement or Deepa Rodriguez in one week. 2. PT/OT/home health in regards to home safety, medication review and med management, teaching, strengthening, coordination, ADL teaching. - Discharge Plan Home Medications: Home Meds Albuterol/Ipratropium [DuoNeb 3.0-0.5 MG/3 ML] 3 ml IH QID 10/19/14 [History] Aspirin [Halfprin] 81 mg PO DAILY 10/19/14 [History] Budesonide [Pulmicort] 0.5 mg IH BID 10/19/14 [History] Bumetanide [Bumex] 3 mg PO BID 10/19/14 [History] FLUoxetine [PROzac] 40 mg PO BID 10/19/14 [History] Levothyroxine Sodium [Synthroid] 274 mcg PO ACBREAKFAST 10/19/14 [History] Polyethylene Glycol 3350 [MiraLAX] 17 gm PO DAILY PRN 10/19/14 [History] Acetaminophen [Tylenol Extra Strength] 1,000 mg PO Q8H PRN 10/09/16 [History] Ferrous Sulfate 325 mg PO TIDMEALS 10/09/16 [History] Magnesium Oxide 800 mg PO BIDMEALS 10/09/16 [History] Vitamin B6-pyridOXINE 100 mg PO PCLUNCH 10/09/16 [History] metOLazone [Metolazone] 2.5 mg PO TUFR 10/09/16 [History] traZODone 50 mg PO BEDTIME 10/09/16 [History] Cholecalciferol (Vitamin D3) [Vitamin D3] 1,000 unit PO WITHLUNCH 05/05/17 [ History] Magnesium Oxide 400 mg PO WITHLUNCH 05/05/17 [History] Pravastatin [Pravachol] 20 mg PO BEDTIME 05/05/17 [History] Albuterol Sulfate 2.5 mg IH Q4H PRN 05/26/17 [History] Gabapentin [Neurontin] 300 mg PO TID 05/26/17 [History] Pantoprazole [ProTONIX] 40 mg PO ACBREAKFAST 05/26/17 [History] buPROPion HCl [Wellbutrin Xl] 150 mg PO DAILY 05/26/17 [History] guaiFENesin [Guaifenesin] 400 mg PO Q6H PRN 05/26/17 [History] Insulin Detemir [Levemir] 50 units SUBCUT BID 01/02/18 [History] Insulin Lispro [Humalog] 31 units SUBCUT TIDMEALS 01/02/18 [History] Nystatin [Nystop] 1 applic TOP BID 01/02/18 [History] Potassium Chloride 20 meq PO DAILY 01/02/18 [History] Spironolactone 50 mg PO DAILY 01/02/18 [History] Patient Handouts: Venous Thromboembolism Prevention Forms: ED Department Discharge Referrals: Lisa Rodriguez, [employer] [Primary Care Provider] - - Patient Data Vitals - Most Recent: Last Vital Signs Temp 97.7 F 01/04/18 04:45 Pulse 67 01/04/18 04:45 Resp 18 01/04/18 04:45 BP 103/47 L 01/04/18 04:45 Pulse Ox 93 L 01/04/18 04:45 Weight - Most Recent: 264 lb 2 oz Lab Results - Last 24 hrs: Laboratory Results - last 24 hr 01/03/18 01/03/18 01/04/18 Range/Units 17:11 20:41 06:28 POC Glucose 111 107 66 L (80-116) mg/dL 01/04/18 Range/Units 08:25 POC Glucose 124 H (80-116) mg/dL YODIT Results - Last 24 hrs: Microbiology 01/02/18 10:20 Aerobic Blood Culture - Preliminary Blood - Venous - Lab Draw NO GROWTH AFTER 1 DAY Anaerobic Blood Culture - Preliminary NO GROWTH AFTER 1 DAY 01/02/18 10:15 Aerobic Blood Culture - Preliminary Blood - Venous NO GROWTH AFTER 1 DAY Anaerobic Blood Culture - Preliminary NO GROWTH AFTER 1 DAY Med Orders - Current: Current Medications Acetaminophen (Tylenol Extra Strength) 1,000 mg PO Q8H PRN PRN Reason: Pain Last Admin: 08/25/18 10:25 Dose: 1,000 mg Albuterol (Proventil Neb Soln) 2.5 mg INH Q4H PRN PRN Reason: BREATHING Albuterol/Ipratropium (Duoneb 3.0-0.5 Mg/3 Ml) 3 ml INH QIDRT [facility] Last Admin: 01/04/18 08:05 Dose: 3 ml Aspirin (Halfprin) 81 mg PO DAILY [facility] Last Admin: 01/04/18 08:18 Dose: 81 mg Budesonide (Pulmicort) 0.5 mg INH BIDRT [facility] Last Admin: 01/04/18 08:06 Dose: 0.5 mg Bumetanide (Bumex) 3 mg PO BIDDIURETIC [facility] Last Admin: 01/04/18 08:20 Dose: 3 mg Bupropion HCl (Wellbutrin Xl) 150 mg PO DAILY [facility] Last Admin: 01/04/18 08:18 Dose: 150 mg Cholecalciferol (Vitamin D3) 1,000 units PO WITHLUNCH [facility] Last Admin: 01/03/18 12:57 Dose: 1,000 units Enoxaparin Sodium (Lovenox) 40 mg SUBCUT DAILY [facility] Last Admin: 01/03/18 10:20 Dose: 40 mg Ferrous Sulfate (Ferrous Sulfate) 325 mg PO TIDMEALS [facility] Last Admin: 01/04/18 08:18 Dose: 325 mg Fluoxetine HCl (Prozac) 40 mg PO BID [facility] Last Admin: 01/04/18 08:18 Dose: 40 mg Gabapentin (Neurontin) 300 mg PO TID [facility] Last Admin: 01/04/18 08:18 Dose: 300 mg Guaifenesin (Organ-I Nr) 400 mg PO Q6H PRN PRN Reason: MUCOUS Ibuprofen (Motrin) 400 mg PO Q6H PRN PRN Reason: Pain Last Admin: 01/03/18 15:57 Dose: 400 mg Insulin Glargine (Lantus Solostar) 50 units SUBCUT BID [facility] Last Admin: 01/03/18 21:13 Dose: 50 units Insulin Human Lispro (Humalog) 31 unit SUBCUT TIDMEALS [facility] Last Admin: 01/04/18 08:20 Dose: 31 units Levothyroxine Sodium (Levothyroxine) 200 mcg PO DAILY@0600 [facility] Last Admin: 01/04/18 06:19 Dose: 200 mcg Levothyroxine Sodium (Levothyroxine) 75 mcg PO DAILY@0600 [facility] Last Admin: 01/04/18 06:19 Dose: 75 mcg Magnesium Oxide (Magnesium Oxide) 400 mg PO WITHLUNCH [facility] Last Admin: 01/03/18 12:57 Dose: 400 mg Magnesium Oxide (Magnesium Oxide) 800 mg PO BIDMEALS [facility] Last Admin: 01/04/18 08:18 Dose: 800 mg Metolazone (Zaroxolyn) 2.5 mg PO TuFr@0800 [facility] Nystatin (Nystop) 0 gm TOP BID [facility] Last Admin: 01/04/18 08:29 Dose: 1 applic Pantoprazole Sodium (Protonix) 40 mg PO DAILY@0600 [facility] Last Admin: 01/04/18 06:20 Dose: 40 mg Polyethylene Glycol (Miralax) 17 gm PO DAILY PRN PRN Reason: Constipation Potassium Chloride (Klor-Con M20) 20 meq PO DAILY [facility] Last Admin: 01/04/18 08:18 Dose: 20 meq Pravastatin Sodium (Pravachol) 20 mg PO BEDTIME [facility] Last Admin: 01/03/18 20:50 Dose: 20 mg Pyridoxine HCl (Vitamin B6-Pyridoxine) 100 mg PO PCLUNCH [facility] Last Admin: 01/03/18 12:57 Dose: 100 mg Sodium Chloride (Saline Flush) 10 ml FLUSH ASDIRECTED PRN PRN Reason: Keep Vein Open Last Admin: 01/02/18 14:31 Dose: 10 ml Spironolactone (Aldactone) 50 mg PO DAILY [facility] Last Admin: 01/04/18 08:18 Dose: 50 mg Trazodone HCl (Trazodone) 50 mg PO BEDTIME [facility] Last Admin: 01/03/18 20:51 Dose: 50 mg Discontinued Medications Ceftriaxone Sodium (Rocephin) 1,000 mg IVPUSH Q24H [facility] Last Admin: 01/02/18 19:33 Dose: 1,000 mg Sodium Chloride (Normal Saline) 1,000 mls @ 125 mls/hr IV ASDIRECTED [facility] Last Admin: 01/03/18 07:14 Dose: 125 mls/hr Ceftriaxone Sodium 1,000 mg/ (Sodium Chloride) 50 mls @ 100 mls/hr IV Q24H [facility] Last Admin: 01/02/18 19:55 Dose: Not Given Lorazepam (Ativan) 0.25 mg IVPUSH ONETIME ONE Stop: 01/02/18 14:18 Last Admin: 01/02/18 14:32 Dose: 0.25 mg
[2018-01-04] MEDS: Enoxaparin 40 MG/0.4 ML Syringe SUBCUT SCH (09:35)
[2018-01-04] MEDS: Insulin Glargine,Human Rec. Analog 100 Units/ML 3 ML Pen SUBCUT SCH (09:35)
[2018-01-04] MEDS: Vitamin B6-pyridOXINE 100 MG Tab PO SCH (12:34)
[2018-01-04] MEDS: Cholecalciferol (Vitamin D3) 1,000 Unit Tab PO SCH (12:34)
[2018-01-04 13:26] VITALS: BP 115/58
[2018-01-06] MEDS ORDERED: Metolazone 2.5 MG Tab PO SCH (08:00)
== END 2018-01-04 14:55 | disposition home health service (06) | DRG 948 ==
LOC: FB.ED 09:39 → FB.MS 11:19 → UNDOADMIN 11:43
PROVIDERS: ADMIT Family Medicine; ATTEND Family Medicine
DX: R41.82 Altered mental status, unspecified (principal); I13.0 Hypertensive heart and chronic kidney disease with heart failure and stage 1 through stage 4 chronic kidney disease, or unspecified chronic kidney disease; C34.90 Malignant neoplasm of unspecified part of unspecified bronchus or lung; Z51.5 Encounter for palliative care; Z66 Do not resuscitate; N18.3 Chronic kidney disease, stage 3 (moderate); I50.9 Heart failure, unspecified; E13.22 Other specified diabetes mellitus with diabetic chronic kidney disease; J44.9 Chronic obstructive pulmonary disease, unspecified; Z99.81 Dependence on supplemental oxygen; Z91.81 History of falling; M79.7 Fibromyalgia; E03.9 Hypothyroidism, unspecified; E66.01 Morbid (severe) obesity due to excess calories; Z68.35 Body mass index [BMI] 35.0-35.9, adult; F32.9 Major depressive disorder, single episode, unspecified; R53.83 Other fatigue; Z87.891 Personal history of nicotine dependence; G47.33 Obstructive sleep apnea (adult) (pediatric); R94.5 Abnormal results of liver function studies; Z99.89 Dependence on other enabling machines and devices; H54.7 Unspecified visual loss; Z88.5 Allergy status to narcotic agent; Z88.8 Allergy status to other drugs, medicaments and biological substances; Z79.82 Long term (current) use of aspirin; Z79.4 Long term (current) use of insulin
CPT/HCPCS: 36415; 70450; 71045; 80048; 80053; 81001; 82962; 83605; 83880; 84484; 85025; 85610; 87040; 93005; 94640; 99285; A9270-GY; J0696; J1650; J1815; J1815-GY; J2060; J7030; J7050; J7620-GY